=== PATIENT | female | born 1950 | race Caucasian/White ===

== ENCOUNTER → 2024-05-29 | Outpatient (CLI) | payer OTHER, MEDICAID, SELFPAY ==
--- NOTE | 2024-05-29 15:31 | XR_ITS ---
Examination: PA lateral chest 2 views TECHNIQUE: Upright PA lateral chest 2 views Exam date and time: May 29, 2024 1541 hours INDICATIONS: Coughing beginning 3 months ago. FINDINGS: Mild prominence left ventricle Retrocardiac gastric hernia Right subclavian Port-A-Cath tip satisfactory position Mild vascular congestion Severe osteopenia Accentuation basilar bronchovascular markings IMPRESSION: Bronchitis pattern
== END | disposition home or self-care (01) ==
PROVIDERS: PCP Physician Assistant; Referring Provider Physician Assistant; Visit Provider Physician Assistant
DX: R05.9 Cough, unspecified (principal); J44.9 Chronic obstructive pulmonary disease, unspecified
CPT/HCPCS: 71046

== ENCOUNTER 2024-11-21 17:01 | Inpatient (IN) | payer OTHER, MEDICAID, SELFPAY ==
[2024-11-21 17:16] VITALS: BP 153/89; PULSE 98; RESP 22; TEMP 36.6; O2SAT 94; BMI 23.6
--- NOTE | 2024-11-21 17:30 | EKG_ITS ---
[facility] (Formerly [facility]) Test Date: 2024-11-21 Pat Name: JADYN LEE Department: Room: - Gender: Female Huc Ob: : 1950 Requested By: Sunil Boston Order Number: [id number] Reading MD: Sunil Boston Measurements Intervals [place] Rate: 99 P: [place]: QRS: 23 QRSD: 110 T: -12 QT: 341 QTc: 439 Interpretive Statements ATRIAL FIBRILLATION NONSPECIFIC T-WAVE ABNORMALITY ABNORMAL RHYTHM ECG Compared to ECG 01/09/2024 16:57:31 T-wave abnormality now present ST (T wave) deviation no longer present /store/S0/[id number]/[id number].pdf
--- NOTE | 2024-11-21 17:30 | XR_ITS ---
Examination: PA lateral chest 2 views FINDINGS: Upright PA lateral chest 2 views Date and time: November 21, 2024, 1558 hours, comparison May 29, 2024 INDICATIONS: Chest pain shortness of breath beginning last night, diagnosis breast cancer FINDINGS: Interval extensive volume loss and opacity in the left hemithorax Prominent vascular congestion, suspicious for edema at the right lung base Right subclavian Port-A-Cath tip satisfactory position Mildly enlarged cardiac contour Elevation left hemidiaphragm Abrupt truncation of the left mainstem bronchus IMPRESSION: Interval atelectasis and pneumonia left lung, consider CT chest post intravenous contrast follow-up to exclude left mediastinal tumor compressing the left main stem bronchus Mild heart failure
--- NOTE | 2024-11-21 17:30 | XR_ITS ---
Examination: CT brain head without contrast. 2-D sagittal coronal reconstructions Date and time of exam:November 21, 2024 1750 hours INDICATIONS: Onset slurred speech beginning yesterday CTDI: vol (mGy):46.5 DLP: (mGycm):985 Technique: Multiple CT axial sections of the brain have been obtained, 5 mm slice thickness. Contrast has not been administered. 2-D sagittal, coronal reconstructions have been obtained Low dose protocols were performed. One or more of the following dose reduction techniques were used; automated exposure control, adjustment of the mA and/or KV according to patient size, use of iterative reconstruction technique. Findings: No significant ventricular enlargement. Intra-axial or extra-axial hemorrhage density is not seen. No mass effect or midline shift Basal cisterns are not remarkable. Fourth ventricle is midline. Cranial vault intact. Impression: Negative for acute hemorrhage, mass effect or midline shift As clinically warranted, consider brain MRI MRA without contrast, stroke protocol, follow-up
--- NOTE | 2024-11-21 17:31 | PD.EDRME ---
Rapid Medical Screening Exam RME Arrival date/time: 11/21/24 17:01 74-year-old female with a history of hypertension presents to the emergency room with a chief complaint of slurred speech, right-sided unilateral numbness, shortness of breath, x 2 days. Patient states her last well-known was yesterday afternoon. I have greeted and performed a focused initial assessment of this patient. A comprehensive ED assessment and evaluation of the patient, analysis of all test results, and completion of the medical decision making process will be conducted by additional ED providers. Chief Complaint: Shortness of Breath/Dyspnea Time Seen by Provider: 11/21/24 17:11 Vital signs: Vital Signs Temperature 98 F 11/21/24 17:16 Pulse Rate 98 11/21/24 17:16 Respiratory Rate 22 H 11/21/24 17:16 Blood Pressure 153/89 H 11/21/24 17:16 Pulse Oximetry (%) 94 L 11/21/24 17:16 Oxygen Delivery Method Room Air 11/21/24 17:16 Vital signs reviewed by provider: Yes
[2024-11-21 17:54] LABS: Basophils # (Auto) 0.1 Thou/mm3 (0.0-0.2); Basophils % (Auto) 1 % (0-2.5); Eosinophils # (Auto) 0.1 Thou/mm3 (0.0-0.5); Eosinophils % (Auto) 2 % (0-10); Hematocrit 43.4 % (36.0-46.0); Hemoglobin 13.8 g/dL (12.0-16.0); Immature Granulocytes Auto 0.02 Thou/mm3 (0.00-0.00); Lymphocytes # (Auto) 1.7 Thou/mm3 (1.0-4.8); Lymphocytes % (Auto) 22 % (10-50); Mean Corpuscular HGB Conc 31.8 g/dl (31.0-37.0); Mean Corpuscular Hemoglobin 27.2 pg (25.0-35.0); Mean Corpuscular Volume 85 fL (80-100); Monocytes # (Auto) 0.6 Thou/mm3 (0.0-0.8); Monocytes % (Auto) 8 % (0-12); Neutrophils # (Auto) 5.1 Thou/mm3 (1.8-7.7); Neutrophils % (Auto) 67 % (37-80); Nucleated Red Blood Cell # 0.00 Thou/mm3 (0.00-0.00); Nucleated Red Blood Cell % 0 /100 WBC (0); Platelet Count 285 Thou/mm3 (140-440); RDW Standard Deviation 49.0 fL (36.4-46.3); Red Blood Count 5.08 Miln/mm3 (4.00-5.20); White Blood Count 7.6 Thou/mm3 (3.6-11.0)
[2024-11-21 18:12] LABS: INR 1.1 (0.9-1.3); Partial Thromboplastin Time 31.4 Seconds (22.0-36.0); Prothrombin Time 12.4 Seconds (9.0-12.2)
[2024-11-21 18:23] LABS: Alanine Aminotransferase 11 U/L (10-49); Albumin, Serum 3.9 gm/dL (3.4-4.8); Albumin/Globulin Ratio 1.1 (1.2-2.2); Alkaline Phosphatase 98 U/L (46-116); Anion Gap 6 (7-16); Aspartate Amino Transferase 24 U/L (0-34); B-Type Natriuretic Peptide 504 pg/mL (0-100); BUN/Creatinine Ratio 10 Ratio (12-20); Bilirubin,Total 0.6 mg/dL (0.3-1.2); Blood Urea Nitrogen 6 mg/dL (9-23); Calcium 8.9 mg/dL (8.3-10.6); Calcium (Corrected) 9.0 mg/dL (8.5-10.1); Carbon Dioxide 30.6 mMol/L (20.0-31.0); Chloride 102 mMol/L (98-107); Creatinine (Component) 0.6 mg/dL (0.6-1.3); Estimated Creatinine Clearance 78.8 mL/min (>60); Globulin 3.4 gm/dL (2.3-3.5); Glucose 107 mg/dL (74-106); Osmolality,Calculated 275 (275-295); Potassium 4.1 mMol/L (3.4-5.1); Sodium 139 mMol/L (136-145); Total Protein 7.3 gm/dL (5.7-8.2); Troponin I < 0.020 ng/mL (0.0-0.045); eGFR > 60 See Note
[2024-11-21 19:15] LABS: Collection Type, Urine Clean Catch
[2024-11-21 19:22] LABS: Bilirubin,Urine Negative (Negative); Blood,Urine 1+ (Negative); Clarity,Urine Clear (Clear/Hazy); Color,Urine Lt-Yellow (Lt Yel-Yel); Glucose, Urine Negative (Negative); Ketones,Urine Negative (Negative); Leukocyte Esterase,Urine Positive (Negative); Nitrite,Urine Negative (Negative); PH,Urine 7.0 (5.0-7.0); Protein,Urine Negative (Neg - Trace); RBC,Urine 4 /hpf (0-3); Specific Gravity,Urine 1.005 (1.001-1.035); Squamous Epithelial Cell,Urine 3 /hpf (0-5); Urobilinogen,Urine Negative mg/dL (0.0-1.0); WBC,Urine 1 /hpf (0-5)
[2024-11-21 20:24] VITALS: BP 146/89; PULSE 104; RESP 19; TEMP 36.8; O2SAT 95
--- NOTE | 2024-11-21 21:03 | EDNOTE_ITS ---
ED SOB =RME/HPI General Chief Complaint: Shortness of Breath/Dyspnea Stated Complaint: SOB since last night, memory loss today Time Seen by Provider: 11/21/24 17:11 Arrival date/time: 11/21/24 17:01 RME / HPI RME / HPI Narrative: 11/21/24 17:01 74-year-old female with a history of hypertension presents to the emergency room with a chief complaint of slurred speech, right-sided unilateral numbness, shortness of breath, x 2 days. Patient states her last well-known was yesterday afternoon. I have greeted and performed a focused initial assessment of this patient. A comprehensive ED assessment and evaluation of the patient, analysis of all test results, and completion of the medical decision making process will be conducted by additional ED providers. Dr. Price?s Main ED Evaluation: 74yo female presents with ongoing dyspnea on exertion/shortness of breath and central chest tightness for the last 24 hours that is waxing and weaning. Also notes expressive aphasia last PM and ?right-sided weakness. Reports diaphoresis. Denies N/V. PE risk factors positive for tobacco use and family history of DVT. No recent surgeries. No HRT. PMH includes breast CA, COPD, aFib. No prior MCA or OK. Surgical history includes hysterectomy and left mastectomy. Related Data Home Medications ?Medication ?Instructions ?Recorded ?Confirmed lisinopril 10 mg tablet 10 mg PO QDAY #0 tabs 11/22/24 Held on 01/13/24. Instructions: Resume on 01/20/24. Hold due to low BPs. Reassess with PCP. Methadone * 5 mg PO Q6HR #0 tabs 7 11/22/24 duloxetine 30 mg capsule,delayed 30 mg PO DAILY #0 cap s 02/08/17 11/22/24 release (Cymbalta) esomeprazole magnesium 20 mg 20 mg PO DAILY 01/10/24 0 11/22/24 capsule,delayed release fluticasone 250 mcg-salmeterol 50 1 inh inhalation BID 01/10/24 11/22/24 mcg/dose blistr powdr for inhalation furosemide 20 mg tablet 20 mg PO DAILY 01/10/2401/08 Held on 01/13/24. Instructions: Resume on 01/20/24. Hold due to low BP, reassess with [employer] Previous Rx's ?Medication ?Instructions ?Recorded amiodarone 200 mg tablet 200 mg PO BID #30 tabs 01/12 apixaban 5 mg tablet 5 mg PO BID #30 tabs 4 Allergies Allergy/AdvReac Type Severity Reaction Status Date / Time adhesive tape Allergy Severe BLISTER/RED Verified 11/21/24 17:08 NESS Penicillins Allergy Severe RASH / Verified 11/21/24 17:08 ITICHING/ Iodinated Contrast Media Allergy Intermediate Shakiness Verified 11/21/24 17:08 latex Allergy Mild Rash Verified 11/21/24 17:08 Review of Systems Review of Systems Systems Reviewed: All systems reviewed, normal except as documented Past Medical History Past Medical History NEUROLOGIC: Positive Migraine; Negative Cerebrovascular Accident CARDIAC: Positive Peripheral Vascular Disease and Hypertension; Negative Cardiac Disorders, Hypercholesterolemia or Congestive Heart Failure RESPIRATORY: Positive Chronic Obstructive Pulmonary Disease (COPD) (ex smoker), Asthma and Bronchitis GASTROINTESTINAL: Positive Gastroesophageal Reflux Disease GENITOURINARY: Negative Renal Disease REPRODUCTIVE: Positive Breast Cancer (left partial masectomy) and Previous Pregnancies MUSCULOSKELETAL: Positive Arthritis ENDOCRINE: Negative Diabetes Mellitus Type 1 or Diabetes Mellitus Type 2 HEMATOLOGIC: Positive Blood Disorders and Anemia; Negative Sickle Cell Disease PSYCHO/SOCIAL: Positive Depression and Anxiety OTHER HISTORY: Positive Hospitalization, Chicken Pox, Measles, Mumps, Cancer and Breast Cancer (left partial masectomy) Family History FAMILY HISTORY: Positive Family Psychiatric Problems, Family Respiratory Disorders, Family Gastrointestinal Problems and Family Cancer Surgical History SURGICAL: Positive Angiogram, Mastectomy, Hysterectomy and Tubal Ligation Social History SMOKING STATUS: Current every day smoker ED Exam Narrative Physical exam: GENERAL APPEARANCE: alert and oriented x 4, chronically ill appearing, nontoxic, complains of shortness of breath, no acute distress VITALS: All vitals were reviewed and the pulse ox is 95% on room air, which is normal according to my interpretation. HEENT: Normocephalic, atraumatic; pupils equal, round, reactive to light; EOMI; mucous membranes pink, moist; oropharynx clear NECK: Supple, left carotid bruit, no JVD LUNGS: Scattered wheezing, diminished breath sounds HEART: Regular rate, regular rhythm; normal S1, S2; no murmurs ABDOMEN: non distended; normal BS; soft, no tenderness, no guarding, no rebound; no masses, no organomegaly, no hernia BACK: no CVA tenderness EXTREMITIES: atraumatic; no edema NEUROLOGIC: awake; alert and oriented x4; cranial nerves II-XII grossly intact; ?slight weakness to the RUE, normal F-N and H-S; gait not observed PSYCHIATRIC: appropriate mood and affect SKIN: warm, dry, normal color; no rashes Course Course Course Narrative: CXR is ordered for determining the etiology of shortness of breath. Quality Measures none Orders Category Date Time Status Bedside COVID-19 Antigen Test NOW Care 11/22/24 12:[address] Screening NOW Care 11/21/24 21:[address] Screening NOW Care 11/21/24 21:26 Active EKG (ED ONLY) *Do not use* NOW Care 11/21/24 17:30 Completed MRI Screening NOW Care 11/22/24 03:[address] angio carotid w head w Stat Exams 11/21/24 21:[address] chest w con Stat Exams 11/21/24 21:[address] head/brain wo con Stat Exams 11/21/24 17:30 Completed EKG (ED Only) Stat Exams 11/21/24 17:30 Draft MR MRCP Stat Exams 11/22/24 Completed XR chest 2V Stat Exams 11/21/24 17:30 Completed B-Type Natriuretic Peptide Stat Lab 11/21/24 17:44 Completed CBC Stat Lab 11/21/24 17:44 Completed CBC Stat Lab 11/22/24 12:17 Completed CMP [Comprehensive Metabolic Panel] Stat Lab 11/22/24 12:17 Completed Comprehensive Metabolic Panel Stat Lab 11/21/24 17:44 Completed Magnesium Stat Lab 11/22/24 12:17 Completed Partial Thromboplastin Time Stat Lab 11/21/24 17:44 Completed Prothrombin Time with INR Stat Lab 11/21/24 17:44 Completed Troponin I Stat Lab 11/21/24 17:44 Completed Urinalysis Stat Lab 11/21/24 18:53 Completed ALBUTEROL RT 3ml [Proventil Rt 3ml] Med 11/22/24 02:29 Discontinued 2.5 mg INH X1 ONE Acetaminophen Ivpb [Ofirmev Inj] Med 11/22/24 11:58 Discontinued 1,000 mg in 100 ml IV X1 Albuterol/Ipratr Rt Eladia [Duoneb Rt Eladia] Med 11/21/24 21:22 Discontinued 3 ml INH X1 ONE Albuterol/Ipratr Rt Eldaia [Duoneb Rt Eladia] Med 11/22/24 02:30 Discontinued 3 ml INH X1 ONE Diazepam Inj [Valium Inj] Med 11/22/24 08:04 Discontinued 2.5 mg IVP X1 ONE DiphenhydrAMINE INJ [Benadryl Inj] Med 11/21/24 21:45 Discontinued 50 mg IVP X1 ONE Doxycycline Inj [Vibramycin Inj] 100 mg Med 11/22/24 03:54 Discontinued Sodium Chloride 0.9% (Pop) [NS 0.9% mini bag] 100 ml IV X1 Furosemide [Lasix Inj] Med 11/21/24 21:21 Discontinued 20 mg IVP X1 ONE MethylPREDNISolone. [SoluMEDROL Inj] Med 11/21/24 21:45 Discontinued 125 mg IVP X1 ONE MethylPREDNISolone.* [SoluMEDROL Inj] Med 11/21/24 21:57 Discontinued 125 mg IVP X1 ONE cefTRIAXone/D5w 1gm IV premix [Rocephin/D5w 1gm IV Med 11/22/24 03:53 Discontinued premix] 1 gm in 50 ml IV X1 fentaNYL INJ [Sublimaze Inj] Med 11/22/24 09:28 Discontinued 50 mcg IVP X1 ONE Vital Signs Vital signs: Vital Signs Temperature 98 F 11/21/24 17:16 Pulse Rate 98 11/21/24 17:16 Respiratory Rate 22 H 11/21/24 17:16 Blood Pressure 153/89 H 11/21/24 17:16 Pulse Oximetry (%) 94 L 11/21/24 17:16 Oxygen Delivery Method Room Air 11/21/24 17:16 Shortness of Breath / Dyspnea MDM Narrative MDM Narrative:: Scribe Attestation: 11/21/24 - Kaylyn Arthur am scribing for and in the presence of Dr. Price. 74yo female presents with ongoing dyspnea on exertion/shortness of breath and central chest tightness for the last 24 hours that is waxing and waning. Also notes expressive aphasia last PM and ?right-sided weakness. Please see PE findings. Lab markers demonstrate WBC 7.6, normal Hgb, and normal platelet count. Chemistries essentially unremarkable. BNP mildly elevated at 504 and troponin undetected. UA with equivocal evidence of infection. Patient placed on school lunch monitor, and was administered nebulizer treatments, steroids, analges ics, and antiemetics with mild relief. CXR showed possible mediastinal mass prompting CTA chest, which demonstrated left lobar pneumonia and possible endobronchial lesion. There's additionally intrahepatic dilatation, further imaging suggested. CTA head and neck are unremarkable for LVO. MRCP will be required to determine whether the patient will necessitate tranfer. Empiric antibiotics initiated. Dx: pneumonia, CHF, r/o endobronchial lesion. Disposition per AM physician, patient awaiting MRCP. Patient data External records reviewed:: [facility] previous records (Per chart review, patient was admitted here on 01/09/24 for aFib RVR.) Clinical information provided by:: patient Social determinants that could affect healthcare access:: none Patient has the following chronic illnesses:: COPD, HTN, PAD, CAD s/p two stents on Eliquis How is presenting disease/condition affected by chronic disease/condition?: exacerbated by Evaluation data The following diagnostics were reviewed and interpreted by me:: lab results, radiology exam(s) and EKG tracing(s) Lab and/or radiology exams considered but not ordered:: none Interpretation Summary: EKG done at 1736, aFib, rate of 99, no ST segment changes, no ectopy, normal axis, according to my interpretation. [facility] Report Signed Patient: JADYN LEE. Record#: [id number] Birthdate: 1950 Age/Sex: 74 / F Location: [facility] Attending Dr: Ordering Physician: Sunil Epperson Date of Service: 11/21/24 Procedure(s): XR chest 2V Accession Number(s): [id number] cc: Sunil Epperson; Jaison Montes MD~ Examination: PA lateral chest 2 views FINDINGS: Upright PA lateral chest 2 views Date and time: November 21, 2024, 1558 hours, comparison May 29, 2024 INDICATIONS: Chest pain shortness of breath beginning last night, diagnosis breast cancer FINDINGS: Interval extensive volume loss and opacity in the left hemithorax Prominent vascular congestion, suspicious for edema at the right lung base Right subclavian Port-A-Cath tip satisfactory position Mildly enlarged cardiac contour Elevation left hemidiaphragm Abrupt truncation of the left mainstem bronchus IMPRESSION: Interval atelectasis and pneumonia left lung, consider CT chest post intravenous contrast follow-up to exclude left mediastinal tumor compressing the left main stem bronchus Mild heart failure Dictated By: Jaison Montes MD Signed By: <Electronically signed by Jaison Montes MD in OV> 11/21/24 1814 [facility] Signed Patient: JADYN LEE [facility]. Record#: [id number] Birthdate: 1950 Age/Sex: 74 / F Location: [facility] Attending Dr: Ordering Physician: Sunil Epperson Date of Service: 11/21/24 Procedure(s): CT head/brain wo con Accession Number(s): [id number] cc: Sunil Epperson; Jaison Montes MD~ Examination: CT brain head without contrast. 2-D sagittal coronal reconstructions Date and time of exam:November 21, 2024 1750 hours INDICATIONS: Onset slurred speech beginning yesterday CTDI: vol (mGy):46.5 DLP: (mGycm):985 Technique: Multiple CT axial sections of the brain have been obtained, 5 mm slice thickness. Contrast has not been administered. 2-D sagittal, coronal reconstructions have been obtained Low dose protocols were performed. One or more of the following dose reduction techniques were used; automated exposure control, adjustment of the mA and/or KV according to patient size, use of iterative reconstruction technique. Findings: No significant ventricular enlargement. Intra-axial or extra-axial hemorrhage density is not seen. No mass effect or midline shift Basal cisterns are not remarkable. Fourth ventricle is midline. Cranial vault intact. Impression: Negative for acute hemorrhage, mass effect or midline shift As clinically warranted, consider brain MRI MRA without contrast, stroke protocol, follow-up Dictated By: Jaison Montes MD Signed By: <Electronically signed by Jaison Montes MD in OV> 11/21/24 1801 [facility] Signed Patient: JADYN LEE [facility]. Record#: [id number] Birthdate: 1950 Age/Sex: 74 / F Location: [facility] Attending Dr: Ordering Physician: Santosh Lyons DO Date of Service: 11/21/24 Procedure(s): CT angio carotid w head w Accession Number(s): [id number] cc: Santosh Lyons DO; Jaison Montes MD; SHAI REINOSO~ Examination: CTA carotids with intravenous contrast CTA brain, head with intravenous contrast. 2-D sagittal, coronal reconstructions. 3-D reconstructions. Exam date and time: November 21, 2024 10:29 PM CTDI: vol (mGy) 28.55 DLP: (mGycm) 579 Technique: Multiple CTA axial brain, head carotid images post intravenous contrast injection 75 cc, Isovue-370. 2-D sagittal, coronal reconstructions. 3-D reconstructions, 3-D post processing including vascular maximum intensity projection images. Low dose protocols were performed. One or more of the following dose reduction techniques were used; automated exposure control, adjustment of the mA and/or KV according to patient size, use of iterative reconstruction technique. Findings: Extensive opacity volume loss and pneumonia in the left lung 14 mm left thyroid nodule No significant common carotid carotid bifurcation or internal carotid artery stenoses Dominant right vertebral artery with no critical stenoses No cerebral large vessel arterial occlusions or thrombus IMPRESSION: No significant neck arterial stenoses No cerebral atherosclerotic tube occlusions or thromboses Dictated By: Jaison Montes MD Signed By: <Electronically signed by Jaison Montes MD in OV> 11/21/24 2353 [facility] Signed Patient: JADYN LEE Med. Record#: [id number] Birthdate: 1950 Age/Sex: 74 / F Location: [facility] Attending Dr: Ordering Physician: Santosh Lyons DO Date of Service: 11/21/24 Procedure(s): CT chest w con Accession Number(s): [id number] cc: Santosh Lyons DO; Jaison Montes MD; SHAI REINOSO~ Examination: CT chest with intravenous contrast 2-D sagittal and coronal reconstructions Exam date and time: November 21, 2024 1035 hours INDICATIONS: Difficulty breathing this week CTDI:vol (mGy) 16.71. DLP: (mGycm) 763. Technique: Multiple axial sections of the thorax have been obtained. Sections have been obtained, 3 mm slice thickness. Mediastinal and lung density settings have been obtained. Intravenous contrast administered, 75 cc Isovue-370. 2-D sagittal, coronal images obtained. Low dose protocols were performed. One or more of the following dose reduction techniques were used; automated exposure control, adjustment of the mA and/or KV according to patient size, use of iterative reconstruction technique. Findings: Extensive volume loss with pneumonia in the left lung No thoracic aortic aneurysmal dilatation No pulmonary artery emboli. Abrupt termination of the left mainstem bronchus image 173 No right lung pneumonia COPD evident with areas of airspace destruction and 8 mm pulmonary nodule right upper lobe Intra and extrahepatic biliary tract dilatation, common bile duct 10 mm Prominent osteopenia IMPRESSION: Extensive pneumonia and volume loss left lung. Abrupt termination of the left mainstem bronchus, recommend bronchoscopy to exclude endobronchial lesion COPD 8 mm pulmonary nodule right upper lobe Significant extrahepatic biliary tract dilatation, recommend hepatobiliary sonography follow-up Dictated By: Jaison Montes MD Signed By: <Electronically signed by Jaison Montes MD in OV> 11/21/24 2356 Medications / Prescriptions Medications or Prescriptions considered but not ordered:: none Medication administrations:: Medication Administration History Acetaminophen (Acetaminophen 325 Mg Tablet) 650 mg PO Q6H PRN PRN Reason: Pain (1-3) & Fever >100.4 Stop: 12/22/24 14:13 Albuterol/Ipratropium (Albuterol/Ipratropium (Duoneb) Rt Eladia 3 Ml Nebu) 3 ml INH Q4HRRT AMANDO Stop: 12/22/24 14:59 Last Admin: 11/22/24 22:23 Dose: 3 ml Documented By: Admin: 11/22/24 18:56 Dose: 3 ml Documented By: Admin: 11/22/24 14:37 Dose: 3 ml Documented By: MARY Albuterol/Ipratropium (Albuterol/Ipratropium (Duoneb) Rt Eladia 3 Ml Nebu) 3 ml INH Q2HR PRN PRN Reason: SHORTNESS OF BREATH OR WHEEZE Stop: 12/22/24 14:13 Amiodarone HCl (Amiodarone Hcl 200 Mg Tablet) 200 mg PO QDAY [facility] Stop: 12/22/24 14:29 Last Admin: 11/22/24 14:55 Dose: 200 mg Documented By: GAVINO Apixaban (Apixaban 2.5 Mg Tablet) 5 mg PO BID [facility] Stop: 12/22/24 14:59 Last Admin: 11/22/24 15:01 Dose: 5 mg Documented By: GAVINO Atorvastatin Calcium (Atorvastatin Calcium 20 Mg Tablet) 80 mg PO HS AMANDO Stop: 12/22/24 20:59 Last Admin: 11/22/24 20:28 Dose: 80 mg Documented By: RACHEL Furosemide (Furosemide Inj 10 Mg/Ml 4ml Vial) 40 mg IVP QDAY [facility] Stop: 12/23/24 08:59 Ceftriaxone Sodium/Dextrose (Rocephin/D5w 1gm Iv Premix) 1 gm in 50 mls @ 100 mls/hr IV QDAY [facility] Stop: 11/30/24 08:59 Azithromycin 500 mg/ Sodium (Chloride) 250 mls @ 250 mls/hr IV QDAY [facility] Stop: 11/30/24 08:59 Methylprednisolone Sodium Succinate (Methylprednisolone Sod Succ 40 Mg Vial) 40 mg IVP QDAY [facility] Stop: 11/29/24 14:29 Last Admin: 11/22/24 14:55 Dose: 40 mg Documented By: GAVINO Ondansetron HCl (Ondansetron Inj 2 Mg/Ml Inj 2 Ml) 4 mg IVP Q6H PRN; Protocol PRN Reason: NAUSEA OR VOMITING Stop: 12/22/24 14:13 Pantoprazole Sodium (Pantoprazole Inj 40 Mg Vial) 40 mg IVP QDAY [facility] Stop: 12/23/24 08:59 Sennosides (Senna Tablet) 1 tab PO QDAY AMAND[facility]; Protocol Stop: 12/23/24 08:59 Tramadol HCl (Tramadol Hcl 50 Mg Tablet) 50 mg PO Q8HR PRN PRN Reason: PAIN SCALE 4-10(Mod-Sev Stop: 11/27/24 14:13 Last Admin: 11/22/24 20:37 Dose: 50 mg Documented By: RACHEL Discontinued Medications Albuterol (Albuterol Rt 2.5 Mg/3 Ml Nebu) 2.5 mg INH X1 ONE Stop: 11/22/24 02:30 Last Admin: 11/22/24 03:11 Dose: Not Given Documented By: XOCHITL Non-Admin Reason: Discontinued Albuterol/Ipratropium (Albuterol/Ipratropium (Duoneb) Rt Eladia 3 Ml Nebu) 3 ml INH X1 ONE Stop: 11/21/24 21:23 Last Admin: 11/21/24 21:49 Dose: 3 ml Documented By: KAITLYNN Albuterol/Ipratropium (Albuterol/Ipratropium (Duoneb) Rt Eladia 3 Ml Nebu) 3 ml INH X1 ONE Stop: 11/22/24 02:31 Last Admin: 11/22/24 02:46 Dose: 3 ml Documented By: KAITLYNN Diazepam (Diazepam Inj 5 Mg/Ml Vial 2 Ml) 2.5 mg IVP X1 ONE Stop: 11/22/24 08:05 Last Admin: 11/22/24 08:43 Dose: 2.5 mg Documented By: GAVINO Diphenhydramine HCl (Diphenhydramine Inj 50 Mg/Ml Vial) 50 mg IVP X1 ONE Stop: 11/21/24 21:46 Last Admin: 11/21/24 22:05 Dose: 50 mg Documented By: SUSANNE Fentanyl Citrate (Fentanyl Cit Inj 50 Mcg/Ml Amp 2ml) 50 mcg IVP X1 ONE Stop: 11/22/24 09:29 Last Admin: 11/22/24 10:24 Dose: 50 mcg Documented By: GAVINO Furosemide (Furosemide Inj 10 Mg/Ml Vial 2 Ml) 20 mg IVP X1 ONE Stop: 11/21/24 21:22 Last Admin: 11/21/24 21:31 Dose: 20 mg Documented By: SUSANNE Furosemide (Furosemide Inj 10 Mg/Ml 4ml Vial) 40 mg IVP X1 ONE Stop: 11/22/24 14:27 Last Admin: 11/22/24 14:55 Dose: 40 mg Documented By: GAVINO Ceftriaxone Sodium/Dextrose (Rocephin/D5w 1gm Iv Premix) 1 gm in 50 mls @ 100 mls/hr IV X1 ONE Stop: 11/22/24 04:22 Last Infusion: 11/22/24 04:53 Dose: Infused Documented By: Admin: 11/22/24 04:23 Dose: 100 mls/hr Documented By: SUSANNE Doxycycline Hyclate 100 mg/ (Sodium Chloride) 100 mls @ 100 mls/hr IV X1 ONE Stop: 11/22/24 04:53 Last Infusion: 11/22/24 06:26 Dose: Infused Documented By: Admin: 11/22/24 04:25 Dose: 100 mls/hr Documented By: SUSANNE Acetaminophen (Ofirmev Inj) 1,000 mg in 100 mls @ 250 mls/hr IV X1 ONE Stop: 11/22/24 12:21 Last Infusion: 11/22/24 12:40 Dose: Infused Documented By: Admin: 11/22/24 12:14 Dose: 250 mls/hr Documented By: GAVINO Magnesium Sulfate (Magnesium Sulfate Ivpb) 4 gm in 50 mls @ 12.5 mls/hr IV X1 ONE Stop: 11/22/24 18:25 Last Infusion: 11/22/24 19:50 Dose: Infused Documented By: Admin: 11/22/24 14:49 Dose: 12.5 mls/hr Documented By: GAVINO Azithromycin 500 mg/ Sodium (Chloride) 250 mls @ 250 mls/hr IV X1 ONE Stop: 11/22/24 15:29 Last Infusion: 11/22/24 15:55 Dose: Infused Documented By: Admin: 11/22/24 14:44 Dose: 250 mls/hr Documented By: GAVINO Methylprednisolone Sodium Succinate (Methylprednisolone Sod Succ 40 Mg Vial) 125 mg IVP X1 ONE Stop: 11/21/24 21:46 Last Admin: 11/21/24 22:06 Dose: Not Given Documented By: SUSANNE Non-Admin Reason: Duplicate Medication on eMAR Methylprednisolone Sodium Succinate (Methylprednisolone Sod Succ 62.5 Mg/Ml 2ml Vial) 125 mg IVP X1 ONE Stop: 11/21/24 21:58 Last Admin: 11/21/24 22:05 Dose: 125 mg Documented By: SUSANNE Morphine Sulfate (Morphine Sulf Inj 10 Mg/Ml Vial) 2 mg IVP X1 PRN PRN Reason: Prior to MRI Stop: 11/27/24 15:42 Last Admin: 11/22/24 16:25 Dose: 2 mg Documented By: RD Potassium Chloride (Potassium Chloride 20 Meq Tabcr) 20 meq PO X1 ONE Stop: 11/22/24 14:26 Last Admin: 11/22/24 14:55 Dose: 20 meq Documented By: VG Sodium Chloride (Sodium Chloride Rt 10% 15 Ml Nebu) 5 ml INH X1 ONE Stop: 11/22/24 14:25 see above Consultations Consultation(s) initiated? (list below): No Diagnosis Shortness of Breath Differential Diagnosis: acute exacerbation of chronic obstructive airways disease, congestive heart failure, community acquired pneumonia and pulmonary embolism Most likely diagnosis given after review of the tests above:: final dx pending at sign out Admission Indicated Admission indicated?: not indicated Admission Request Was there a request for admission?: No Disposition Plan Disposition Plan: other (specify) ([facility] Lloyd [facility] 6 [facility] Discharge Plan Plan Patient Disposition: Admit Acute Care w/in Hospital Problem List Clinical Impression: Pneumonia, CHF (congestive heart failure)
--- NOTE | 2024-11-21 21:22 | XR_ITS ---
Examination: CTA carotids with intravenous contrast CTA brain, head with intravenous contrast. 2-D sagittal, coronal reconstructions. 3-D reconstructions. Exam date and time: November 21, 2024 10:29 PM CTDI: vol (mGy) 28.55 DLP: (mGycm) 579 Technique: Multiple CTA axial brain, head carotid images post intravenous contrast injection 75 cc, Isovue-370. 2-D sagittal, coronal reconstructions. 3-D reconstructions, 3-D post processing including vascular maximum intensity projection images. Low dose protocols were performed. One or more of the following dose reduction techniques were used; automated exposure control, adjustment of the mA and/or KV according to patient size, use of iterative reconstruction technique. Findings: Extensive opacity volume loss and pneumonia in the left lung 14 mm left thyroid nodule No significant common carotid carotid bifurcation or internal carotid artery stenoses Dominant right vertebral artery with no critical stenoses No cerebral large vessel arterial occlusions or thrombus IMPRESSION: No significant neck arterial stenoses No cerebral atherosclerotic tube occlusions or thromboses
--- NOTE | 2024-11-21 21:26 | XR_ITS ---
Examination: CT chest with intravenous contrast 2-D sagittal and coronal reconstructions Exam date and time: November 21, 2024 1035 hours INDICATIONS: Difficulty breathing this week CTDI:vol (mGy) 16.71. DLP: (mGycm) 763. Technique: Multiple axial sections of the thorax have been obtained. Sections have been obtained, 3 mm slice thickness. Mediastinal and lung density settings have been obtained. Intravenous contrast administered, 75 cc Isovue-370. 2-D sagittal, coronal images obtained. Low dose protocols were performed. One or more of the following dose reduction techniques were used; automated exposure control, adjustment of the mA and/or KV according to patient size, use of iterative reconstruction technique. Findings: Extensive volume loss with pneumonia in the left lung No thoracic aortic aneurysmal dilatation No pulmonary artery emboli. Abrupt termination of the left mainstem bronchus image 173 No right lung pneumonia COPD evident with areas of airspace destruction and 8 mm pulmonary nodule right upper lobe Intra and extrahepatic biliary tract dilatation, common bile duct 10 mm Prominent osteopenia IMPRESSION: Extensive pneumonia and volume loss left lung. Abrupt termination of the left mainstem bronchus, recommend bronchoscopy to exclude endobronchial lesion COPD 8 mm pulmonary nodule right upper lobe Significant extrahepatic biliary tract dilatation, recommend hepatobiliary sonography follow-up
[2024-11-21 21:31] VITALS: BP 136/93; PULSE 86
[2024-11-21] MEDS: FUROSEMIDE INJ 10 MG/ML VIAL 2 ML 20 MG IVP (21:31)
--- NOTE | 2024-11-21 21:43 | PC.NURSE ---
Notified Dr. Perez of allergy to contrast, new orders pending for benadryl and decodron, and okay to go to Ct 20 minutes post medication administration
[2024-11-21] MEDS: ALBUTEROL/IPRATROPIUM (Duoneb) RT SOL 3 ML NEBU INH (21:49)
[2024-11-21 21:50] VITALS: PULSE 93; RESP 20; O2SAT 96
[2024-11-21] MEDS: MethylPREDNISolone SOD SUCC 62.5 MG/ML 2ML VIAL 125 MG IVP (22:05)
[2024-11-22] VITALS (14 sets, daily range): BP systolic 96–143; BP diastolic 70–96; PULSE 89–114; RESP 16–25; TEMP 36.5–37; O2SAT 93–100
--- NOTE | 2024-11-22 | XR_ITS ---
MRI abdomen, without contrast. MRCP Date and time of exam: November 22, 2024, 0854 hours INDICATIONS: CT chest November 21, 2024 extrahepatic biliary tract dilatation Technique: Multiple axial and coronal images of the abdomen have been obtained with the Siemens 1.5T MRI scanner. Patient's cooperation limited, coronal and axial images obtained Findings: Patient motion degrades image quality Intrahepatic biliary tract dilatation. Gallbladder not visualized Abnormal enlargement common hepatic duct 12 mm No pancreatic mass or dilated pancreatic duct No hydronephrosis. IMPRESSION: Severely limited study,. Significant intra and extrahepatic biliary tract dilatation Recommend repeating the study preceded by sedation Also recommend hepatobiliary sonography follow-up
--- NOTE | 2024-11-22 | XR_ITS ---
Examinations: MRI Brain without intravenous contrast. MRA brain without intravenous contrast. MRA carotids without intravenous contrast 3-D vascular reconstructions Date and time of exam: November 22, 2024, 1742 hours INDICATIONS: Right leg weakness paresthesias difficulty speaking 3 days Technique: Multiple axial and sagittal images of the brain have been obtained MRA brain carotid images without contrast obtained, including 3-D postprocessing, vascular maximum intensity projection images Findings: Sellaturcica is not enlarged. The optic chiasm and infundibular stalk are not remarkable. Prepontine and interpeduncular cisterns are not enlarged. No localized enlargement of the medulla or amanda. Fourth ventricle and cerebellar tonsils normal in position. Subacute hemorrhage is not seen. Fourth ventricle is midline. Mass in the cerebellopontine angle region is not evident. 7th and 8th nerve complexes exhibits symmetry. Globes are symmetrical with no retro-orbital mass. Increased white matter signal moderate Diffusion-weighted images demonstrate multiple embolic-type foci restricted diffusion left parietal lobe, left frontal lobe, left temporal lobe, left basal ganglia, left occipital lobe Mass-effect upon the ventricular system is not identified. MRA carotid images no significant carotid stenoses. 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
[2024-11-22] MEDS: ALBUTEROL/IPRATROPIUM (Duoneb) RT SOL 3 ML NEBU INH ×4 (02:46→22:23)
[2024-11-22] MEDS: cefTRIAXone/D5w 1gm IV premix 1 GM/50 ML BAG IV (04:23)
[2024-11-22] MEDS: DOXYCYCLINE INJ 100 MG in SODIUM CHLORIDE 0.9% (POP) 100 ML IV (04:25)
--- NOTE | 2024-11-22 04:35 | PC.NURSE ---
Clarified the blood culture order with Dr. Johnston prior to administering antibiotics
--- NOTE | 2024-11-22 07:03 | EDNOTE_ITS ---
Emergency Room Addendum Addendum Narrative: Patient signed out to elisabeth has extensive pneumonia on the CT scan with volume of lung loss and concern for a right pulmonary nodule that may need to have bronchoscopy at some point to get a formal diagnosis to rule out neoplasm but incidentally they found extensive dilated biliary tract and an MRCP is pending at 0650 hrs. Patient got antibiotics both ceftriaxone and doxycycline to cover the pneumonia got some breathing treatments for her COPD. Also got some jose roids. At 0650 hrs. patient is comfortable waiting for MRCP. Patient got her MRCP which was suboptimal and confirms the dilated biliary tree but but no obvious mass was seen Patient clearly has pneumonia there is a concerning mass in the lung suggesting postobstructive issue and possibly related to her cancer. Hospitalist was called and they will admit the patient.
--- NOTE | 2024-11-22 08:19 | EDNOTE_ITS ---
Emergency Room Addendum <Marisol Randhawa - Last Filed: 11/22/24 14:38> Addendum Narrative: 0600: Care assumed from Dr. Li, the previous shift emergency physician. Past medical, surgical, social and family history reviewed. Vitals and home medications reviewed. I will assume the care of the patient at this time, pending MRCP and final disposition. Please refer to the emergency department record for history and examination from initial visit.? Physical exam by me shows patient under no acute distress at this time. 1054: Discussed test HPI, PMHx, lab, radiology results and/or management with resident working with the hospitalist. Will admit for further evaluation and man agement. Accepts patient for admission. 1109: I called Dr. Marin twice. Discussed test HPI, PMHx, lab, radiology results and/or management and would like a neuro consult before admission. 1400: Discussed test HPI, PMHx, lab, radiology results and/or management with resident working with the hospitalist. Will admit for further evaluation and management. Accepts patient for admission. <Moshe Lloyd MD - Last Filed: 11/22/24 16:08> Addendum Narrative: 0600: Care assumed from Dr. Li, the previous shift emergency physician. Past medical, surgical, social and family history reviewed. Vitals and home medications reviewed. I will assume the care of the patient at this time, pending MRCP and final disposition. Please refer to the emergency department record for history and examination from initial visit.? Physical exam by me shows patient under no acute distress at this time. 1054: Discussed test HPI, PMHx, lab, radiology results and/or management with resident working with the hospitalist. Will admit for further evaluation and management. Accepts patient for admission. 1109: I called Dr. Marin twice. Discussed test HPI, PMHx, lab, radiology results and/or management and would like a neuro consult before admission. 1400: Discussed test HPI, PMHx, lab, radiology results and/or management with resident working with the hospitalist. Will admit for further evaluation and management. Accepts patient for admission. Also there was another addendum please refer to that to augment this plan Results <Marisol Randhawa - Last Filed: 11/22/24 14:38> Objective Laboratory: Laboratory Last Values WBC 7.6 Thou/mm3 (3.6-11.0) 11/21/24 17:44 RBC 5.08 Miln/mm3 (4.00-5.20) 11/21/24 17:44 Hgb 13.8 g/dL (12.0-16.0) 11/21/24 17:44 Hct 43.4 % (36.0-46.0) 11/21/24 17:44 MCV 85 fL (80-100) 11/21/24 17:44 MCH 27.2 pg (25.0-35.0) 11/21/24 17:44 MCHC 31.8 g/dl (31.0-37.0) 11/21/24 17:44 RDW Std Deviation 49.0 fL (36.4-46.3) H 11/21/24 17:44 Plt Count 285 Thou/mm3 (140-440) 11/21/24 17:44 Neut % (Auto) 67 % (37-80) 11/21/24 17:44 Lymph % (Auto) 22 % (10-50) 11/21/24 17:44 Barber % (Auto) 8 % (0-12) 11/21/24 17:44 Eos % (Auto) 2 % (0-10) 11/21/24 17:44 Baso % (Auto) 1 % (0-2.5) 11/21/24 17:44 Neut # (Auto) 5.1 Thou/mm3 (1.8-7.7) 11/21/24 17:44 Lymph # (Auto) 1.7 Thou/mm3 (1.0-4.8) 11/21/24 17:44 Barber # (Auto) 0.6 Thou/mm3 (0.0-0.8) 11/21/24 17:44 Eos # (Auto) 0.1 Thou/mm3 (0.0-0.5) 11/21/24 17:44 Baso # (Auto) 0.1 Thou/mm3 (0.0-0.2) 11/21/24 17:44 Immature Gran # (Auto) 0.02 Thou/mm3 (0.00-0.00) H 11/21/24 17:44 Absolute Nucleated RBC 0.00 Thou/mm3 (0.00-0.00) 11/21/24 17:44 Immature Gran % 0 % (0-0) 11/21/24 17:44 Nucleated RBC % 0 /100 WBC (0) 11/21/24 17:44 PT 12.4 Seconds (9.0-12.2) H 11/21/24 17:44 INR 1.1 (0.9-1.3) 11/21/24 17:44 APTT 31.4 Seconds (22.0-36.0) 11/21/24 17:44 Sodium 139 mMol/L (136-145) 11/21/24 17:44 Potassium 4.1 mMol/L (3.4-5.1) 11/21/24 17:44 Chloride 102 mMol/L (98-107) 11/21/24 17:44 Carbon Dioxide 30.6 mMol/L (20.0-31.0) 11/21/24 17:44 Anion Gap 6 (7-16) L 11/21/24 17:44 BUN 6 mg/dL (9-23) L 11/21/24 17:44 Creatinine 0.6 mg/dL (0.6-1.3) 11/21/24 17:44 Estim Creat Clear Calc 78.8 mL/min (>60) 11/21/24 17:44 eGFR > 60 See Note (60-) 11/21/24 17:44 BUN/Creatinine Ratio 10 Ratio (12-20) L 11/21/24 17:44 Glucose 107 mg/dL (74-106) H 11/21/24 17:44 Calculated Osmolality 275 (275-295) 11/21/24 17:44 Calcium 8.9 mg/dL (8.3-10.6) 11/21/24 17:44 Corrected Calcium 9.0 mg/dL (8.5-10.1) 11/21/24 17:44 Total Bilirubin 0.6 mg/dL (0.3-1.2) 11/21/24 17:44 AST 24 U/L (0-34) 11/21/24 17:44 ALT 11 U/L (10-49) 11/21/24 17:44 Alkaline Phosphatase 98 U/L (46-116) 11/21/24 17:44 Troponin I < 0.020 ng/mL (0.0-0.045) 11/21/24 17:44 B-Natriuretic Peptide 504 pg/mL (0-100) H* 11/21/24 17:44 Total Protein 7.3 gm/dL (5.7-8.2) 11/21/24 17:44 Albumin 3.9 gm/dL (3.4-4.8) 11/21/24 17:44 Globulin 3.4 gm/dL (2.3-3.5) 11/21/24 17:44 Albumin/Globulin Ratio 1.1 (1.2-2.2) L 11/21/24 17:44 Ur Collection Type Clean Catch 11/21/24 18:53 Urine Color Lt-Yellow (Lt Yel-Yel) 11/21/24 18:53 Urine Clarity Clear (Clear/Hazy) 11/21/24 18:53 Urine pH 7.0 (5.0-7.0) 11/21/24 18:53 Ur Specific [place] 1.005 (1.001-1.035) 11/21/24 18:53 Urine Protein Negative (Neg - Trace) 11/21/24 18:53 Urine Glucose (UA) Negative (Negative) 11/21/24 18:53 Urine Ketones Negative (Negative) 11/21/24 18:53 Urine Blood 1+ (Negative) A 11/21/24 18:53 Urine Nitrite Negative (Negative) 11/21/24 18:53 Urine Bilirubin Negative (Negative) 11/21/24 18:53 Urine Urobilinogen (Auto) Negative mg/dL (0.0-1.0) 11/21/24 18:53 Ur Leukocyte Esterase Positive (Negative) 11/21/24 18:53 Urine RBC 4 /hpf (0-3) H 11/21/24 18:53 Urine WBC 1 /hpf (0-5) 11/21/24 18:53 Ur Squamous Epith Cells 3 /hpf (0-5) 11/21/24 18:53 Urine Bacteria None (None) 11/21/24 18:53 Imaging: Procedure(s): MR MRCP Accession Number(s): [id number] cc: Santosh Lyons DO; Jaison Montes MD; SHAI RENIOSO~ MRI abdomen, without contrast. MRCP Date and time of exam: November 22, 2024, 0854 hours INDICATIONS: CT chest November 21, 2024 extrahepatic biliary tract dilatation Technique: Multiple axial and coronal images of the abdomen have been obtained with the Siemens 1.5T MRI scanner. Patient's cooperation limited, coronal and axial images obtained Findings: Patient motion degrades image quality Intrahepatic biliary tract dilatation. Gallbladder not visualized Abnormal enlargement common hepatic duct 12 mm No pancreatic mass or dilated pancreatic duct No hydronephrosis. IMPRESSION: Severely limited study,. Significant intra and extrahepatic biliary tract dilatation Recommend repeating the study preceded by sedation Also recommend hepatobiliary sonography follow-up Dictated By: Jaison Montes MD <Moshe Lloyd MD - Last Filed: 11/22/24 16:08> Objective Laboratory: Laboratory Last Values WBC 7.6 Thou/mm3 (3.6-11.0) 11/21/24 17:44 RBC 5.08 Miln/mm3 (4.00-5.20) 11/21/24 17:44 Hgb 13.8 g/dL (12.0-16.0) 11/21/24 17:44 Hct 43.4 % (36.0-46.0) 11/21/24 17:44 MCV 85 fL (80-100) 11/21/24 17:44 MCH 27.2 pg (25.0-35.0) 11/21/24 17:44 MCHC 31.8 g/dl (31.0-37.0) 11/21/24 17:44 RDW Std Deviation 49.0 fL (36.4-46.3) H 11/21/24 17:44 Plt Count 285 Thou/mm3 (140-440) 11/21/24 17:44 Neut % (Auto) 67 % (37-80) 11/21/24 17:44 Lymph % (Auto) 22 % (10-50) 11/21/24 17:44 Barber % (Auto) 8 % (0-12) 11/21/24 17:44 Eos % (Auto) 2 % (0-10) 11/21/24 17:44 Baso % (Auto) 1 % (0-2.5) 11/21/24 17:44 Neut # (Auto) 5.1 Thou/mm3 (1.8-7.7) 11/21/24 17:44 Lymph # (Auto) 1.7 Thou/mm3 (1.0-4.8) 11/21/24 17:44 Barber # (Auto) 0.6 Thou/mm3 (0.0-0.8) 11/21/24 17:44 Eos # (Auto) 0.1 Thou/mm3 (0.0-0.5) 11/21/24 17:44 Baso # (Auto) 0.1 Thou/mm3 (0.0-0.2) 11/21/24 17:44 Immature Gran # (Auto) 0.02 Thou/mm3 (0.00-0.00) H 11/21/24 17:44 Absolute Nucleated RBC 0.00 Thou/mm3 (0.00-0.00) 11/21/24 17:44 Immature Gran % 0 % (0-0) 11/21/24 17:44 Nucleated RBC % 0 /100 WBC (0) 11/21/24 17:44 PT 12.4 Seconds (9.0-12.2) H 11/21/24 17:44 INR 1.1 (0.9-1.3) 11/21/24 17:44 APTT 31.4 Seconds (22.0-36.0) 11/21/24 17:44 Sodium 139 mMol/L (136-145) 11/21/24 17:44 Potassium 4.1 mMol/L (3.4-5.1) 11/21/24 17:44 Chloride 102 mMol/L (98-107) 11/21/24 17:44 Carbon Dioxide 30.6 mMol/L (20.0-31.0) 11/21/24 17:44 Anion Gap 6 (7-16) L 11/21/24 17:44 BUN 6 mg/dL (9-23) L 11/21/24 17:44 Creatinine 0.6 mg/dL (0.6-1.3) 11/21/24 17:44 Estim Creat Clear Calc 78.8 mL/min (>60) 11/21/24 17:44 eGFR > 60 See Note (60-) 11/21/24 17:44 BUN/Creatinine Ratio 10 Ratio (12-20) L 11/21/24 17:44 Glucose 107 mg/dL (74-106) H 11/21/24 17:44 Calculated Osmolality 275 (275-295) 11/21/24 17:44 Calcium 8.9 mg/dL (8.3-10.6) 11/21/24 17:44 Corrected Calcium 9.0 mg/dL (8.5-10.1) 11/21/24 17:44 Total Bilirubin 0.6 mg/dL (0.3-1.2) 11/21/24 17:44 AST 24 U/L (0-34) 11/21/24 17:44 ALT 11 U/L (10-49) 11/21/24 17:44 Alkaline Phosphatase 98 U/L (46-116) 11/21/24 17:44 Troponin I < 0.020 ng/mL (0.0-0.045) 11/21/24 17:44 B-Natriuretic Peptide 504 pg/mL (0-100) H* 11/21/24 17:44 Total Protein 7.3 gm/dL (5.7-8.2) 11/21/24 17:44 Albumin 3.9 gm/dL (3.4-4.8) 11/21/24 17:44 Globulin 3.4 gm/dL (2.3-3.5) 11/21/24 17:44 Albumin/Globulin Ratio 1.1 (1.2-2.2) L 11/21/24 17:44 Ur Collection Type Clean Catch 11/21/24 18:53 Urine Color Lt-Yellow (Lt Yel-Yel) 11/21/24 18:53 Urine Clarity Clear (Clear/Hazy) 11/21/24 18:53 Urine pH 7.0 (5.0-7.0) 11/21/24 18:53 Ur Specific [place] 1.005 (1.001-1.035) 11/21/24 18:53 Urine Protein Negative (Neg - Trace) 11/21/24 18:53 Urine Glucose (UA) Negative (Negative) 11/21/24 18:53 Urine Ketones Negative (Negative) 11/21/24 18:53 Urine Blood 1+ (Negative) A 11/21/24 18:53 Urine Nitrite Negative (Negative) 11/21/24 18:53 Urine Bilirubin Negative (Negative) 11/21/24 18:53 Urine Urobilinogen (Auto) Negative mg/dL (0.0-1.0) 11/21/24 18:53 Ur Leukocyte Esterase Positive (Negative) 11/21/24 18:53 Urine RBC 4 /hpf (0-3) H 11/21/24 18:53 Urine WBC 1 /hpf (0-5) 11/21/24 18:53 Ur Squamous Epith Cells 3 /hpf (0-5) 11/21/24 18:53 Urine Bacteria None (None) 11/21/24 18:53
[2024-11-22] MEDS: DIAZEPAM INJ 5 MG/ML VIAL 2 ML 2.5 MG IVP (08:43)
--- NOTE | 2024-11-22 08:50 | PC.NURSE ---
pt taken to MRI
[2024-11-22] MEDS: fentaNYL CIT INJ 50 mCg/ML AMP 2ML IVP (10:24)
--- NOTE | 2024-11-22 11:17 | PC.NURSE ---
CONSULTED TELENEURO PER DR JONES AWAITING CALL BACK AT THIS TIME
--- NOTE | 2024-11-22 12:06 | PD.TNEURO ---
Tele Neuro Consultation Consultation Date 11/22/24 Most Recent Vital Signs Last Vital Signs Temp 98.3 F 11/22/24 08:10 Pulse 106 H 11/22/24 08:10 Resp 16 11/22/24 08:10 BP 129/75 11/22/24 08:10 Pulse Ox 96 11/22/24 08:10 O2 Del Method Nasal Cannula 11/22/24 08:10 O2 Flow Rate 2 11/22/24 08:10 Laboratory-Coagulation Panel PT 12.4 Seconds (9.0-12.2) H 11/21/24 17:44 INR 1.1 (0.9-1.3) 11/21/24 17:44 APTT 31.4 Seconds (22.0-36.0) 11/21/24 17:44 Consultation Narrative [facility] TeleNeurology Consult Services Stat Consult Patient Name: Dorcas Espitia Date of : 1950 Identification Number: Date of Service: 11/22/2024 11:14:06 Diagnosis: ? I63.89 - Cerebrovascular accident (CVA) due to other mechanism ([facility]) Impression PT with a h/o breast cancer, COPD, HTN, afib presents noting difficulty getting back to her house on 11/20 night. She relates that she was short of breath and noted some changes on her right side including some numbness and weakness. NIHSS =2 with right LE drift and reporting right side decreased sensation. She has dyspnea but no clear aphasia. DDx includes stroke, metastatic disease, lumbar lesion. Recommend MRI brain w/ and w/o. If no abnormality on brain MRI would subsequently proceed with MRI thoracic and lumbar spine w/ and w/o. Continue eliquis, medical workup. Recommendations: Our recommendations are outlined below. Diagnostic Studies : MRI head with and without contrast Laboratory Studies : Lipid panel I ordered Hemoglobin A1c TSH Antithrombotic Medication : Statins for LDL goal less than 70 Nursing Recommendations : Continue with Telemetry Neuro checks q 4 hours Consultations : Recommend Speech therapy if failed dysphagia screen Physical therapy/Occupational therapy Inpatient rehab if recommended by physical/occupational therapy DVT Prophylaxis : Choice of Primary Team Disposition : Neurology will follow Advanced Imaging: CTA Head and Neck Completed. LVO:No Patient is not a candidate for BRANDON Metrics: Dispatch Time: 11/22/2024 11:12:23 Callback Response Time: 11/22/2024 11:19:01 Primary Provider Notified of Diagnostic Impression and Management Plan on: 11/22/2024 12:04:59 CT HEAD: CT head unremarkable for acute infarction or hemorrhage per Radiology: personally reviewed Chief Complaint: right sided numbness, weakness History of Present Illness: Patient is a 74 year old Female. PT with a h/o breast cancer, COPD, HTN, afib presents noting difficulty getting back to her house on 11/20 night. She relates that she was short of breath and noted some changes on her right side including numbness and weakness. She had difficulty with ambulation. She has been compliant with eliquis. She denies new pain, no back pain or LE pain. Past Medical History: ? Hypertension ? Atrial Fibrillation Medications: Anticoagulant use: Yes eliquis No Antiplatelet use Reviewed EMR for current medications Allergies: Reviewed Social History: Drug Use: No Family History: There is no family history of premature cerebrovascular disease pertinent to this consultation ROS : 14 Points Review of Systems was performed and was negative except mentioned in HPI. Past Surgical History: There Is No Surgical History Contributory To Today?s Visit Examination: BP(115/65), Pulse(113), 1A: Level of Consciousness - Alert; keenly responsive + 0 1B: Ask Month and Age - Both Questions Right + 0 1C: Blink Eyes & Squeeze Hands - Performs Both Tasks + 0 2: Test Horizontal Extraocular Movements - Normal + 0 3: Test Visual [place] - No Visual Loss + 0 4: Test Facial Palsy (Use Grimace if Obtunded) - Normal symmetry + 0 5A: Test Left Arm Motor Drift - No Drift for 10 Seconds + 0 5B: Test Right Arm Motor Drift - No Drift for 10 Seconds + 0 6A: Test Left Leg Motor Drift - No Drift for 5 Seconds + 0 6B: Test Right Leg Motor Drift - Drift, but doesn't hit bed + 1 7: Test Limb Ataxia (FNF/Heel-Mayer) - No Ataxia + 0 8: Test Sensation - Mild-Moderate Loss: Less Sharp/More Dull + 1 9: Test Language/Aphasia - Normal; No aphasia + 0 10: Test Dysarthria - Normal + 0 11: Test Extinction/Inattention - No abnormality + 0 NIHSS Score: 2 Spoke with : Dr. Sams This consult was conducted in real time using interactive audio and video technology. Patient was informed of the technology being used for this visit and agreed to proceed. Patient located in hospital and provider located at home/office setting. Patient is being evaluated for possible acute neurologic impairment and high probability of imminent or life - threatening deterioration.I spent total of 41 minutes providing care to this patient, including time for face to face visit via telemedicine, review of medical records, imaging studies and discussion of findings with providers, the patient and / or family. Dr Ebony Elizondo [facility] For Inpatient follow-up with [facility] physician please call [facility] at . As we are not an outpatient service for any post hospital discharge needs please contact the hospital for assistance. If you have any questions for the [facility] physicians or need to reconsult for clinical or diagnostic changes please contact us via [facility] at . Signature : Ebony Elizondo
[2024-11-22] MEDS: ACETAMINOPHEN IVPB 1,000 MG/100 ML VIAL 250 MG IV (12:14)
[2024-11-22 12:23] LABS: Basophils # (Auto) 0.0 Thou/mm3 (0.0-0.2); Basophils % (Auto) 0 % (0-2.5); Eosinophils # (Auto) 0.0 Thou/mm3 (0.0-0.5); Eosinophils % (Auto) 0 % (0-10); Hematocrit 47.3 % (36.0-46.0); Hemoglobin 15.1 g/dL (12.0-16.0); Immature Granulocytes Auto 0.01 Thou/mm3 (0.00-0.00); Lymphocytes # (Auto) 0.7 Thou/mm3 (1.0-4.8); Lymphocytes % (Auto) 12 % (10-50); Mean Corpuscular HGB Conc 31.9 g/dl (31.0-37.0); Mean Corpuscular Hemoglobin 27.1 pg (25.0-35.0); Mean Corpuscular Volume 85 fL (80-100); Monocytes # (Auto) 0.1 Thou/mm3 (0.0-0.8); Monocytes % (Auto) 2 % (0-12); Neutrophils # (Auto) 5.0 Thou/mm3 (1.8-7.7); Neutrophils % (Auto) 86 % (37-80); Nucleated Red Blood Cell # 0.00 Thou/mm3 (0.00-0.00); Nucleated Red Blood Cell % 0 /100 WBC (0); Platelet Count 319 Thou/mm3 (140-440); RDW Standard Deviation 48.0 fL (36.4-46.3); Red Blood Count 5.58 Miln/mm3 (4.00-5.20); White Blood Count 5.8 Thou/mm3 (3.6-11.0)
[2024-11-22 12:58] LABS: Alanine Aminotransferase 14 U/L (10-49); Albumin, Serum 4.2 gm/dL (3.4-4.8); Albumin/Globulin Ratio 1.1 (1.2-2.2); Alkaline Phosphatase 102 U/L (46-116); Anion Gap 11 (7-16); Aspartate Amino Transferase 20 U/L (0-34); BUN/Creatinine Ratio 14 Ratio (12-20); Bilirubin,Total 0.6 mg/dL (0.3-1.2); Blood Urea Nitrogen 10 mg/dL (9-23); Calcium 9.3 mg/dL (8.3-10.6); Calcium (Corrected) 9.3 mg/dL (8.5-10.1); Carbon Dioxide 28.9 mMol/L (20.0-31.0); Chloride 100 mMol/L (98-107); Creatinine (Component) 0.7 mg/dL (0.6-1.3); Estimated Creatinine Clearance 67.5 mL/min (>60); Globulin 3.7 gm/dL (2.3-3.5); Glucose 134 mg/dL (74-106); Magnesium 1.8 mg/dL (1.6-2.6); Osmolality,Calculated 280 (275-295); Potassium 3.8 mMol/L (3.4-5.1); Sodium 140 mMol/L (136-145); Total Protein 7.9 gm/dL (5.7-8.2); eGFR > 60 See Note
[2024-11-22] MEDS: AZITHROMYCIN INJ 500 MG in SODIUM CHLORIDE 0.9% 250 ML 250 ML 250 MG IV (14:44)
[2024-11-22] MEDS: Magnesium Sulfate 4 GM Ivpb 4 GM/50 ML BAG IV (14:49)
[2024-11-22] MEDS: AMIODARONE HCL 200 MG TABLET PO (14:55)
[2024-11-22] MEDS: FUROSEMIDE INJ 10 MG/ML 4ML VIAL 40 MG IVP (14:55)
[2024-11-22] MEDS: APIXABAN 2.5 MG TABLET 5 MG PO (15:01)
--- NOTE | 2024-11-22 15:23 | ESHP_ITS ---
<Statement entered by Genesis Helton MD - 11/26/24 14:37> I reviewed above note and agree with findings and plans. I have also personally examined the patient with medicine team and went over assessment and plan with medical team including hospitality intern and resident physician. <Statement entered by Jovita Sams MD - 11/22/24 18:08> Patient was seen and examined at bedside. I agree on the assessment and plan on this note as documented by resident Samantha Diaz PGY1. Ms. Espitia is a 74-year-old female with past medical history of breast cancer, COPD, hypertension, peripheral and coronary artery disease, status post PCI and stent placement in the past, atrial fibrillation on Eliquis, chronic smoker and substance use disorder who presented to [facility] emergency department with chief complaint of right-sided weakness. Patient is a poor historian, endorse that she started feeling short of breath and some chest tightness while walking back to her home, did not endorse right leg weakness on presentation, stroke alert was initiated in ED. Teleneurology recommended neurochecks every 4 hours and MRI, patient not a candidate for TNK as she is on Eliquis. Otherwise for patient's respiratory distress patient likely has multifactorial etiology with COPD exacerbation, left lobe pneumonia and a component of acute decompensated heart failure. Patient is noncompliant outpatient and is nonadherent to her medical treatment, we will start patient on DuoNeb every 4 hours and DuoNeb as needed, IV methylprednisolone 40 mg daily, ceftriaxone and azithromycin for pneumonia, Lasix 40 mg IV daily. Pro-Zac and lactate negative in ED however we will follow cultures. Follow echocardiogram, resumed home dose amiodarone per med rec for A-fib, resume home dose Eliquis per teleneurology recommendations. Monitor blood pressure, troponins were negative and EKG showed no acute ST-T changes in ED, currently low suspicion of ACS however we will monitor for any active chest pain. Disposition telemetry, pending improvement in respiratory status, goal SpO2 greater than 88. Of note CT chest did show dilated biliary tract, MRCP reflective of similar findings however alk phos negative, AST ALT negative, no abdominal pain Bridges sign negative currently low suspicion of any biliary etiology. Case discussed with attending Dr. Sunitha Sams MD PGY-2 Documentation for date of: 11/22/24 HPI History of Present Illness Chief complaint: shortness of breath, right leg weakness History of present illness: A 74 year old female with past medical history of breast cancer, COPD, HTN, PAD, CAD s/p 2 stents, atrial fibrillation on Eliquis presented to ED on 11/21/2024 with chief complains of shortness of breath, right leg weakness. However, patient is poor historian, she verbalizes that 3 days ago she felt shortness of breath and chest tightness while back to her home. Associated with orthopnea,, paroxysmal nocturnal dyspnea, symptom relief relieved with leaning forward. Additionally patient noted right leg weakness and tingling sensation simultaneously with difficulty speaking and was able to walk back into the house with the assistance of her son. She denies vision changes, nausea, vomiting, fever, chills, fatigue, recent changes in weight. ED Course: -Initial vitals were BP 136/93, HR 110 and irregular, O2 sat on 95 on room air -Labs significant for PT 12.4, anion gap 6, 0.6, BUN/creatinine 10, glucose 107, BNP is 504, UA negative -Imaging included CT negative for acute hemorrhage, head neck CTA showed 14 mm left thyroid nodule, chest CT showed extensive pneumonia and volume loss in the left lung, 8 mm pulmonary nodule on the right upper lobe, cholangiopancreato-MRI shows significant intra extrahepatic biliary tract dilation. -In the ED, patient was given furosemide, DuoNeb, methylprednisolone, acetaminophen, diazepm -Patient was admitted for acute respiratory distress and CVA workup. Past Medical History: Breast cancer, skin cancer Family History: Sisters lung cancer and leukemia Social History: 1/2 pack cigarettes for 40 years (recently quit), of denies current alcohol use, denies recreational drug use Current Medications: (Source: med list ) Allergies: Penicillins, latex, adhesive tape Review of Systems Constitutional Comments: Lightheadedness, headache, back pain Respiratory Respiratory: Reports as per HPI Exam Vital Signs Temp Pulse Resp BP Pulse Ox O2 Del Method O2 Flow Rate 98.3 F 109 H 22 H 143/89 H 95 Nasal Cannula 2 11/22/24 12:00 11/22/24 14:55 11/22/24 14:38 11/22/24 14:55 11/22/24 14:38 11/22/24 12:00 11/22/24 14:38 Narrative Exam Physical Exam General: Awake, in acute distress. Conversational and non-toxic appearing. HEENT: Normocephalic, atraumatic, mucous membranes dry. Heart: Tachycardic, irregular, normal S1 and S2, no murmurs. Lungs: Markedly diminished breath sound bilateral with no wheezing or crackles. Abdomen: Soft, nondistended, nontender, positive bowel sounds. ?No guarding or rebound tenderness. Neurologic: Alert and oriented x3, no gross neurological deficit, Cranial II- XII intact, right UE mild tremor, strength 3/5 right lower and upper extremities. Extremities: Lower extremity mildly tender to palpation, no edema. Skin: No rash or ecchymoses. Results: Labs 11/22/24 12:17 11/22/24 12:17 Labs: Short CBC 11/21/24 11/22/24 Range/Units 17:44 12:17 WBC 7.6 5.8 (3.6-11.0) Thou/mm3 Hgb 13.8 15.1 (12.0-16.0) g/dL Hct 43.4 47.3 H (36.0-46.0) % Plt Count 285 319 D (140-440) Thou/mm3 BMP 11/21/24 11/22/24 17:44 12:17 Sodium 139 140 Potassium 4.1 3.8 Chloride 102 100 Carbon Dioxide 30.6 28.9 BUN 6 L 10 Creatinine 0.6 0.7 Glucose 107 H 134 H Calcium 8.9 9.3 Cardiac Enzymes 11/21/24 Range/Units 17:44 Troponin I < 0.020 (0.0-0.045) ng/mL Liver Function 11/21/24 11/22/24 Range/Units 17:44 12:17 Total Bilirubin 0.6 0.6 (0.3-1.2) mg/dL AST 24 20 (0-34) U/L ALT 11 14 (10-49) U/L Alkaline Phosphatase 98 102 (46-116) U/L Albumin 3.9 4.2 (3.4-4.8) gm/dL Urine 11/21/24 Range/Units 18:53 Urine Color Lt-Yellow (Lt Yel-Yel) Urine Clarity Clear (Clear/Hazy) Urine pH 7.0 (5.0-7.0) Ur Specific Olin 1.005 (1.001-1.035) Urine Protein Negative (Neg - Trace) Urine Glucose (UA) Negative (Negative) Quality Measures Quality Measures none Advance care planning discussed with:: patient Medications Home Medications and Allergies Home Medications ?Medication ?Instructions ?Recorded ?Confirmed ?Type lisinopril 10 mg tablet 10 mg PO QDAY #0 tabs 01/10/24 History Held on 01/13/24. Instructions: Resume on 01/20/24. Hold due to low BPs. Reassess with PCP. Methadone * 5 mg PO Q6HR #0 tabs 7 01/10/24 History duloxetine 30 mg capsule,delayed 30 mg PO DAILY #0 cap s 02/08/17 01/10/24 History release (Cymbalta) esomeprazole magnesium 20 mg 20 mg PO DAILY 01/10/24 0 01/10/24 History capsule,delayed release fluticasone 250 mcg-salmeterol 50 1 inh inhalation BID 01/10/24 01/10/24 History mcg/dose blistr powdr for inhalation furosemide 20 mg tablet 20 mg PO DAILY 01/10/2412/16 History Held on 01/13/24. Instructions: Resume on 01/20/24. Hold due to low BP, reassess with Education Site Manager Allergies Allergy/AdvReac Type Severity Reaction Status Date / Time adhesive tape Allergy Severe BLISTER/RED Verified 11/21/24 17:08 NESS Penicillins Allergy Severe RASH / Verified 11/21/24 17:08 ITICHING/ Iodinated Contrast Media Allergy Intermediate Shakiness Verified 11/21/24 17:08 latex Allergy Mild Rash Verified 11/21/24 17:08 Visit Medications Acetaminophen (Acetaminophen 325 Mg Tablet) 650 mg PO Q6H PRN PRN Reason: Pain (1-3) & Fever >100.4 Stop: 12/22/24 14:13 Albuterol/Ipratropium (Albuterol/Ipratropium (Duoneb) Rt Eladia 3 Ml Nebu) 3 ml INH Q4HRRT AMANDO Stop: 12/22/24 14:59 Last Admin: 11/22/24 14:37 Dose: 3 ml Albuterol/Ipratropium (Albuterol/Ipratropium (Duoneb) Rt Eladia 3 Ml Nebu) 3 ml INH Q2HR PRN PRN Reason: SHORTNESS OF BREATH OR WHEEZE Stop: 12/22/24 14:13 Amiodarone HCl (Amiodarone Hcl 200 Mg Tablet) 200 mg PO QDAY [facility] Stop: 12/22/24 14:29 Last Admin: 11/22/24 14:55 Dose: 200 mg Apixaban (Apixaban 2.5 Mg Tablet) 5 mg PO BID [facility] Stop: 12/22/24 14:59 Last Admin: 11/22/24 15:01 Dose: 5 mg Furosemide (Furosemide Inj 10 Mg/Ml 4ml Vial) 40 mg IVP QDAY [facility] Stop: 12/23/24 08:59 Ceftriaxone Sodium/Dextrose (Rocephin/D5w 1gm Iv Premix) 1 gm in 50 mls @ 100 mls/hr IV QDAY [facility] Stop: 11/30/24 08:59 Azithromycin 500 mg/ Sodium (Chloride) 250 mls @ 250 mls/hr IV QDAY [facility] Stop: 11/25/24 14:23 Magnesium Sulfate (Magnesium Sulfate Ivpb) 4 gm in 50 mls @ 12.5 mls/hr IV X1 ONE Stop: 11/22/24 18:25 Last Admin: 11/22/24 14:49 Dose: 12.5 mls/hr Azithromycin 500 mg/ Sodium (Chloride) 250 mls @ 250 mls/hr IV X1 ONE Stop: 11/22/24 15:29 Last Admin: 11/22/24 14:44 Dose: 250 mls/hr Methylprednisolone Sodium Succinate (Methylprednisolone Sod Succ 40 Mg Vial) 40 mg IVP QDAY [facility] Stop: 11/29/24 14:29 Last Admin: 11/22/24 14:55 Dose: 40 mg Ondansetron HCl (Ondansetron Inj 2 Mg/Ml Inj 2 Ml) 4 mg IVP Q6H PRN; Protocol PRN Reason: NAUSEA OR VOMITING Stop: 12/22/24 14:13 Pantoprazole Sodium (Pantoprazole Inj 40 Mg Vial) 40 mg IVP QDAY [facility] Stop: 12/23/24 08:59 Sennosides (Senna Tablet) 1 tab PO QDAY [facility]; Protocol Stop: 12/23/24 08:59 Tramadol HCl (Tramadol Hcl 50 Mg Tablet) 50 mg PO Q8HR PRN PRN Reason: PAIN SCALE 4-10(Mod-Sev Stop: 11/27/24 14:13 Discontinued Medications Albuterol (Albuterol Rt 2.5 Mg/3 Ml Nebu) 2.5 mg INH X1 ONE Stop: 11/22/24 02:30 Last Admin: 11/22/24 03:11 Dose: Not Given Albuterol/Ipratropium (Albuterol/Ipratropium (Duoneb) Rt Eladia 3 Ml Nebu) 3 ml INH X1 ONE Stop: 11/21/24 21:23 Last Admin: 11/21/24 21:49 Dose: 3 ml Albuterol/Ipratropium (Albuterol/Ipratropium (Duoneb) Rt Eladia 3 Ml Nebu) 3 ml INH X1 ONE Stop: 11/22/24 02:31 Last Admin: 11/22/24 02:46 Dose: 3 ml Diazepam (Diazepam Inj 5 Mg/Ml Vial 2 Ml) 2.5 mg IVP X1 ONE Stop: 11/22/24 08:05 Last Admin: 11/22/24 08:43 Dose: 2.5 mg Diphenhydramine HCl (Diphenhydramine Inj 50 Mg/Ml Vial) 50 mg IVP X1 ONE Stop: 11/21/24 21:46 Last Admin: 11/21/24 22:05 Dose: 50 mg Fentanyl Citrate (Fentanyl Cit Inj 50 Mcg/Ml Amp 2ml) 50 mcg IVP X1 ONE Stop: 11/22/24 09:29 Last Admin: 11/22/24 10:24 Dose: 50 mcg Furosemide (Furosemide Inj 10 Mg/Ml Vial 2 Ml) 20 mg IVP X1 ONE Stop: 11/21/24 21:22 Last Admin: 11/21/24 21:31 Dose: 20 mg Furosemide (Furosemide Inj 10 Mg/Ml 4ml Vial) 40 mg IVP X1 ONE Stop: 11/22/24 14:27 Last Admin: 11/22/24 14:55 Dose: 40 mg Ceftriaxone Sodium/Dextrose (Rocephin/D5w 1gm Iv Premix) 1 gm in 50 mls @ 100 mls/hr IV X1 ONE Stop: 11/22/24 04:22 Last Infusion: 11/22/24 04:53 Dose: Infused Doxycycline Hyclate 100 mg/ (Sodium Chloride) 100 mls @ 100 mls/hr IV X1 ONE Stop: 11/22/24 04:53 Last Infusion: 11/22/24 06:26 Dose: Infused Acetaminophen (Ofirmev Inj) 1,000 mg in 100 mls @ 250 mls/hr IV X1 ONE Stop: 11/22/24 12:21 Last Infusion: 11/22/24 12:40 Dose: Infused Methylprednisolone Sodium Succinate (Methylprednisolone Sod Succ 40 Mg Vial) 125 mg IVP X1 ONE Stop: 11/21/24 21:46 Last Admin: 11/21/24 22:06 Dose: Not Given Methylprednisolone Sodium Succinate (Methylprednisolone Sod Succ 62.5 Mg/Ml 2ml Vial) 125 mg IVP X1 ONE Stop: 11/21/24 21:58 Last Admin: 11/21/24 22:05 Dose: 125 mg Potassium Chloride (Potassium Chloride 20 Meq Tabcr) 20 meq PO X1 ONE Stop: 11/22/24 14:26 Last Admin: 11/22/24 14:55 Dose: 20 meq Sodium Chloride (Sodium Chloride Rt 10% 15 Ml Nebu) 5 ml INH X1 ONE Stop: 11/22/24 14:25 Assessment & Plan Plan 74-year-old female, history of breast cancer, COPD, pretension, PAD, atrial fibrillation, presented to the ED with shortness of breath, right leg weakness and slurred speech admitted for acute respiratory distress management and CVA workup. #Acute respiratory distress 2/2 #COPD exacerbation #Left lobe pneumonia #Acute decompensated heart failure #HFpEF, EF 55% Patient has a history of COPD that was managed at home with fluticasone propionate salmeterol. Recently exacerbated dypnea, mildly relief in a Semi- Elizondo position. CT chest showed extensive pneumonia and volume status of the left lung. Previous Echo showed mild circumferential pericardial effusion and ejection fraction of 50 to 55%. PSI/port is class IV, patient require follow-up pneumonia management. Plan - Start DuoNeb 3 mL Q4HRRT - Start albuterol/ipratropium - Start methylprednisolone 40 mg IV daily - O2 saturation> 88 - continue to monitor - Start azithromycin 500 mg IV daily ( 11/22/24-) - Start ceftriaxone 1 g IV daily (11/23/24-) - MRSA nasal screen ordered - Sputum culture ordered - Blood culture - procalcitonin - A1c - Lipid panel - Started on Lasix 40 daily - Start monitor strict ins and outs - IV fluid restrict to 1500 - Daily weight monitoring - Echo bubble study ordered - Elevation of bed greater than 30 # CVA workup Likely TIA Patient presented with slurred speech, on neuro exam strength 3/5 in right upper and lower extremities; mild tremor on upper extremities more prominent of the Right side. CT was negative for acute hemorrhage, mass effect or midline shift. Plan - MRI ordered - Neurology consulted, awaiting further recs - Resume Eliquis 5 mg p.o. twice daily - Start atorvastatin 80 mg p.o. at bedtime - A1c - Echo pending - Neurocheck every 4 hours - PT/OT referral # Atrial fibrillation, rate controlled Patient has a history of atrial fibrillation RVR, managed with meds Eliquis. [id number] for atrial fibrillation stroke risk is 7 point, with score >2, high risk of stroke and indicating the need of anticoagulant. HAS-BLED score of 3. Plan - Restart amiodarone 200 mg p.o. daily - Resume Eliquis - Monitor electrolytes - Keep k>4, Mg>2 - TSH, Free T4 order # Hypertension # CAD s/p 2stents # PAD # Nicotine Dependence Patient has a history of hypertension, CAD s/p 2 stents in the past and PAD. Also has a history of hypertension manage Home med lisinopril, pending med rec Plan - Continue monitor vital - Hold anti-hypertensives meds - Smoking Cessation Counselling Hospital management: Lines: peripheral IV Diet: NPO Bowel: Senna GI prophylaxis: pantoprazole DVT prophylaxis: SCDs Disposition: tele bed CODE STATUS: Full code Patient seen and assessed under supervision of attending physician Dr. Helton and discuss with senior resident Dr. Sams PGY-2 Samantha Diaz MD PGY-1, Internal Medicine
[2024-11-22 15:33] LABS: Lactate (Lactic Acid) 1.6 mMol/L (0.4-2.0)
[2024-11-22 16:23] LABS: Procalcitonin < 0.04 ng/ml (0.0-0.49)
[2024-11-22] MEDS: MORPHINE SULF INJ 10 MG/ML VIAL 2 MG IVP (16:25)
[2024-11-22] MEDS: ATORVASTATIN CALCIUM 20 MG TABLET 80 MG PO (20:28)
[2024-11-23] VITALS (16 sets, daily range): BP systolic 103–124; BP diastolic 65–83; PULSE 90–119; RESP 16–21; TEMP 36.2–36.7; O2SAT 95–100; BMI 23.3; BMI 13.0
[2024-11-23] MEDS: ALBUTEROL/IPRATROPIUM (Duoneb) RT SOL 3 ML NEBU INH ×6 (02:23→23:21)
[2024-11-23] MEDS: ACETAMINOPHEN 325 MG TABLET 650 MG PO ×2 (02:37→12:43)
[2024-11-23 06:11] LABS: Basophils # (Auto) 0.0 Thou/mm3 (0.0-0.2); Basophils % (Auto) 0 % (0-2.5); Eosinophils # (Auto) 0.0 Thou/mm3 (0.0-0.5); Eosinophils % (Auto) 0 % (0-10); Hematocrit 44.8 % (36.0-46.0); Hemoglobin 14.6 g/dL (12.0-16.0); Immature Granulocytes Auto 0.03 Thou/mm3 (0.00-0.00); Lymphocytes # (Auto) 0.8 Thou/mm3 (1.0-4.8); Lymphocytes % (Auto) 10 % (10-50); Mean Corpuscular HGB Conc 32.6 g/dl (31.0-37.0); Mean Corpuscular Hemoglobin 27.8 pg (25.0-35.0); Mean Corpuscular Volume 85 fL (80-100); Monocytes # (Auto) 0.7 Thou/mm3 (0.0-0.8); Monocytes % (Auto) 8 % (0-12); Neutrophils # (Auto) 7.2 Thou/mm3 (1.8-7.7); Neutrophils % (Auto) 82 % (37-80); Nucleated Red Blood Cell # 0.00 Thou/mm3 (0.00-0.00); Nucleated Red Blood Cell % 0 /100 WBC (0); Platelet Count 232 Thou/mm3 (140-440); RDW Standard Deviation 49.4 fL (36.4-46.3); Red Blood Count 5.26 Miln/mm3 (4.00-5.20); White Blood Count 8.7 Thou/mm3 (3.6-11.0)
[2024-11-23 06:19] LABS: Glucose Estimated Average 120 mg/dL (80-131); Hemoglobin A1C 5.8 % Hgb (4.8-6.0)
[2024-11-23 06:46] LABS: Iron 28 mcg/dL (50-170); Percent Iron Saturation 8 % (20-55); Total Iron Binding Capacity 329 mcg/dL (250-425); Unsaturated Iron Binding 301 (225-295)
--- NOTE | 2024-11-23 08:56 | XR_ITS ---
Examination: Venous duplex lower extremity sonogram, bilateral. Date and time of exam: November 23, 2024 0926 hours INDICATIONS: Bilateral leg pain and tenderness today, patient is anticoagulated Technique: Multiple sonographic images of the deep venous system have been obtained. B-mode/2-D grayscale imaging of vascular structures and Doppler spectral analysis (waveforms) and color performed Both legs are examined. Findings: Negative for DVT right lower extremity Nonocclusive acute thrombus in the mid left superficial femoral vein IMPRESSION: Positive for nonocclusive thrombus in the mid left superficial femoral vein
--- NOTE | 2024-11-23 08:58 | PD.TNEUROPRO ---
Tele Neuro Progress Note Progress Note Date 11/23/24 [facility] Tele[facility]urology Progress Note Date of Service 11/23/2024 Presentation: Based on previous neurology note(s) : PT with a h/o breast cancer, COPD, HTN, afib presents noting difficulty getting back to her house on 11/20 night. She relates that she was short of breath and noted some changes on her right side including some numbness and weakness. NIHSS =2 with right LE drift and reporting right side decreased sensation. on eliquis prior to admission Interval history: 11/23/2024: no events overnight Impression: 1- Atrial Fibrillation 2- Multifocal left hemispheric strokes (embolic pattern, likely due to the above) Recommendations: (Primary Team to order Controlled Medications) Unless specifically noted I Agree with Impression and Plan from previous Neurology note/consult. 1- Risk factor management If stroke is confirmed: Statin for Goal LDL<70, primary team to order Goal HbA1c<7; Blood pressure management: should slowly and gradually lower Blood Pressure to <130/80 over the course of one week (if no cardiovascular contraindication or any critical/severe intra or extracranial arterial stenosis, and if it does not elicit or exacerbate symptoms). avoid hypotension or rapid decrease in Blood Pressure. 2- Work up and Results: Brain MRI: Pending Head and neck Vascular imaging: CTA Head and Neck No Critical large vessel Stenosis or Occlusion reported. ECHO: Pending LDL and HbA1c: Pending has new leg pain, ordered bilateral leg ultrasound c if no cause for shortness of breath is found then CTA chest to rule out PE. 3- Antithrombotic regimen: A- given Acute Ischemic Stroke hold anticoagulation for now, started on aspirin 81mg daily, based on clinical evolution will decide when to resume anticoagulation, strokes are small so if no complication happens expect to resume anticoagulation in 4 days, Once/If anticoagulation is started (timing has to be discussed with neurologist) then can stop antiplatelet therapy (unless there is a definite cardiovascular indication for concurrent use of Antiplatelet therapy and anticoagulation) 4- Nursing recommendations: IV Fluids, avoid dextrose containing fluids Maintain euglycemia Neuro checks every 4 hours for 24 hours and then per shift Head of bed 30 degrees 5- Life Style modifications for stroke prevention should be followed: Diet. Mediterranean diet rich in fruits, vegetables, whole grains, fish, legumes, plant-based oils preferred over animal fats. Reduce sodium intake as directed by primary care physician. Exercise. Aim for 150-minutes of moderate to intense exercise per week in sessions of at least 10 minutes duration as tolerated. Tobacco. Tobacco cessation with counseling and/or pharmacologic management Alcohol. Reduce alcohol consumption as directed by primary care physician. Hormone therapy. Avoid estrogen and testosterone containing medications Sleep. Evaluation and treatment of sleep apnea Return precautions. Seek emergency medical attention if you cannot see, speak, move or feel as you do normally for any abnormal length of time as these may be signs of a stroke [facility] Neurologist will follow up with results. Please contact [facility] Navigator to reach me if further questions/concerns arise. Examination: Examination done through interactive audio and video telecommunications with the assist of bedside nursing (when available) is short of breath awake, alert, oriented x3 speech no aphasia Extraocular movements intact face symmetric arms no drift (10s) right leg mild drift has new bilateral leg pain Patient / Family was informed the Neurology Consult would occur via Tele[facility] consult by way of interactive audio and video telecommunications and consented to receiving care in this manner. Patient is being evaluated for possible acute neurologic impairment and high probability of imminent or life - threatening deterioration. I spent total of 15 minutes providing care to this patient, including time for face to face visit via telemedicine, review of medical records, imaging studies and discussion of findings with providers, the patient and / or family. Dr Marcos Babb [facility] For Inpatient follow-up with [facility] physician please call [facility] . This is not an outpatient service. Post hospital discharge, please contact hospital directly. Please do not communicate with [facility] physicians via secure chat. If you have any questions, Please contact [facility]. Please call or reconsult our service if there are any clinical or diagnostic changes. Most Recent Vital Signs Last Vital Signs Temp 97.6 F 11/23/24 08:00 Pulse 106 H 11/23/24 08:00 Resp 18 11/23/24 08:00 BP 124/73 11/23/24 08:00 Pulse Ox 99 11/23/24 08:00 O2 Del Method Room Air 11/23/24 08:00 O2 Flow Rate 2 11/23/24 06:50 Laboratory-Coagulation Panel PT 12.4 Seconds (9.0-12.2) H 11/21/24 17:44 INR 1.1 (0.9-1.3) 11/21/24 17:44 APTT 31.4 Seconds (22.0-36.0) 11/21/24 17:44
[2024-11-23] MEDS: cefTRIAXone/D5w 1gm IV premix 1 GM/50 ML BAG IV (09:10)
[2024-11-23] MEDS: AMIODARONE HCL 200 MG TABLET PO (09:17)
[2024-11-23] MEDS: ASPIRIN EC 81 MG TABEC PO (09:18)
[2024-11-23] MEDS: FUROSEMIDE INJ 10 MG/ML 4ML VIAL 40 MG IVP (09:18)
[2024-11-23] MEDS: AZITHROMYCIN INJ 500 MG in SODIUM CHLORIDE 0.9% 250 ML 250 ML 250 MG IV (09:41)
[2024-11-23 10:02] LABS: Alanine Aminotransferase 13 U/L (10-49); Albumin, Serum 4.0 gm/dL (3.4-4.8); Albumin/Globulin Ratio 1.1 (1.2-2.2); Alkaline Phosphatase 90 U/L (46-116); Anion Gap 10 (7-16); Aspartate Amino Transferase 21 U/L (0-34); BUN/Creatinine Ratio 21 Ratio (12-20); Bilirubin,Total 0.6 mg/dL (0.3-1.2); Blood Urea Nitrogen 19 mg/dL (9-23); Calcium 9.0 mg/dL (8.3-10.6); Calcium (Corrected) 9.0 mg/dL (8.5-10.1); Carbon Dioxide 29.8 mMol/L (20.0-31.0); Cardiac Risk Estimate 3.2 RATIO (3.7-5.6); Chloride 100 mMol/L (98-107); Cholesterol 145 mg/dL (132-200); Creatinine (Component) 0.9 mg/dL (0.6-1.3); Estimated Creatinine Clearance 52.5 mL/min (>60); Globulin 3.5 gm/dL (2.3-3.5); Glucose 130 mg/dL (74-106); HDL Cholesterol 45 mg/dL (40-60); LDL Cholesterol,Calculated 86 mg/dL (0-130); Magnesium 2.3 mg/dL (1.6-2.6); Osmolality,Calculated 283 (275-295); Phosphorous 4.9 mg/dL (2.4-5.1); Potassium 3.7 mMol/L (3.4-5.1); Sodium 140 mMol/L (136-145); Total Protein 7.5 gm/dL (5.7-8.2); Triglycerides 68 mg/dL (30-150); eGFR > 60 See Note
--- NOTE | 2024-11-23 11:10 | PC.SS ---
Addendum entered by June Carrington 11/23/24 14:37: Rounding note: Neurology recommendations pending, discharging home when medically clear. Original Note: Patient is 74YO Female, reason for visit: AHRF SECONDARY TO PNA. ? SS met with patient at bedside. Role and purpose of today?s contact was explained to patient. Patient confirmed her demographic information. Patient stated her son Gurwinder Solano [phone] is her primary medical surrogate decision maker. Patient reported being independent with ADL completion. She utilizes a cane and rollator for ambulation. Patient also has a shower chair. Patient utilizes 2L of oxygen nightly and as needed. DME provider is Radh[employer]. Pharmacy: [facility]. PCP: Mich Parry, last appt. was October 2024. Patient stated would like to return home at discharge and her son will be transporting her. Discharge plan: Home Next of Kin: Son Gurwinder Solano [phone]
[2024-11-23 12:49] LABS: Free T4 (Free Thyroxine) 1.64 ng/dL (0.89-1.76)
[2024-11-23 12:50] LABS: Thyroid Stimulating Hormone 1.03 uIU/mL (0.55-4.78)
--- NOTE | 2024-11-23 14:03 | ESPR_ITS ---
<Statement entered by Genesis Helton MD - 11/26/24 14:39> I reviewed above note and agree with findings and plans. I have also personally examined the patient with medicine team and went over assessment and plan with medical team including financial services intern and resident physician. <Statement entered by Candy Alonzo MD - 11/23/24 22:15> Pt is seen at bedside, endorses to significant LE pain bilaterally. Pt was taking anticoagulation at home for afib despite that MRI confirms ischemic stroke in multiple areas. Pt however denies any weakness in LE, denies vision changes, denies any changes in speech. LE US is positive for DVT. Per tele neuro recs, will hold off on anticoagulation due to risk of hemorrhagic conversion and will start Aspirin 81mg daily. Will continue IV antibiotics for CAP. Will continue to monitor. Patient was seen and examined by me personally. I have directly supervised and reviewed documentation by the team resident and agree with its findings. ------- Plan of care was discussed with the attending, Dr. Sunitha Alonzo, PGY-2 Documentation for date of: 11/23/24 Subjective Subjective Interval history: No acute overnight events. Patient seen and examined at bedside. Patient reports no new left lower leg pain on light touch and bilateral extreme skin sensitivity. Does have low back pain with sciatica, which is chronic. Reports improved breathing compared to last night, however is having urinary retention. Patient feels much less weak on her right side the compared to yesterday. MRI brain resulted showing multiple embolic type strokes in the left hemisphere. Lower left extremity ultrasound shows nonoccluding thrombus in the mid left superficial femoral vein. Ordered bladder scans every 4 hour and a straight cath if over 350 mL. Continue holding Eliquis, per neuro can resume anticoagulation in 4 days if patient remains stable. Continue DuoNeb treatments, methylprednisolone 40 mg IV, Lasix 40 IV daily. Continue azithromycin and ceftriaxone. Blood cultures pending. Exam Vital Signs Temp Pulse Resp BP Pulse Ox O2 Del Method O2 Flow Rate 97.6 F 92 18 124/73 99 Room Air 2 11/23/24 08:00 11/23/24 10:36 11/23/24 10:36 11/23/24 09:18 11/23/24 10:36 11/23/24 08:00 11/23/24 10:36 Narrative Exam GENERAL: AOx3, in pain while LLE US being performed, conversational HEENT: NC/AT, mucous membranes dry, bilateral sclera anicteric CARDIOVASCULAR: irregular rate and tachycardic, S1/S2 present, no murmurs appreciated PULMONARY: b/l diminished breath sounds most prominent at the bases, + b/l inspiratory and expiratory wheezes ABDOMINAL: soft, non-tender, non-distended, no rebound/guarding, bowel sounds present EXTREMITIES: no peripheral edema, BLE tender to palpation most at medial lower legs SKIN: warm and dry, intact, no rashes NEURO: CN II-XII grossly intact, alert, following commands Muscle strength: 5/5 in bilateral elbow flexion and extension and shoulder abduction 5/5 L hip flexion 4/5 R hip flexion Objective Labs 11/23/24 05:13 11/23/24 09:29 Labs: Laboratory Results - last 24 hr 11/22/24 11/23/24 11/23/24 15:20 05:13 09:29 WBC 8.7 D RBC 5.26 H Hgb 14.6 Hct 44.8 MCV 85 MCH 27.8 MCHC 32.6 RDW Std Deviation 49.4 H Plt Count 232 D Neut % (Auto) 82 H Lymph % (Auto) 10 [place] % (Auto) 8 Eos % (Auto) 0 Baso % (Auto) 0 Neut # (Auto) 7.2 Lymph # (Auto) 0.8 L [place] # (Auto) 0.7 Eos # (Auto) 0.0 Baso # (Auto) 0.0 Immature Gran # (Auto) 0.03 H Absolute Nucleated RBC 0.00 Immature Gran % 0 Nucleated RBC % 0 Sodium 140 Potassium 3.7 Chloride 100 Carbon Dioxide 29.8 Anion Gap 10 BUN 19 Creatinine 0.9 Estim Creat Clear Calc 52.5 L eGFR > 60 BUN/Creatinine Ratio 21 H Glucose [address] Glu mg/dL 120 Hemoglobin A1c 5.8 Calculated Osmolality 283 Lactic Acid 1.6 Calcium 9.0 Corrected Calcium 9.0 Phosphorus 4.9 Magnesium 2.3 Iron 28 L TIBC 329 Iron Saturation 8 L Unsat Iron Binding 301 H Total Bilirubin 0.6 AST 21 ALT 13 Alkaline Phosphatase 90 Total Protein 7.5 Albumin 4.0 Globulin 3.5 Albumin/Globulin Ratio 1.1 L Triglycerides 68 Cholesterol 145 LDL Cholesterol, Calc 86 HDL Cholesterol 45 Cholesterol/HDL Ratio 3.2 L Procalcitonin < 0.04 TSH 1.03 Free T4 1.64 Quality Measures Quality Measures none Advance care planning discussed with:: patient Assessment & Plan Assessment Current Active Medications: Generic Name Dose Route Start Last Admin Trade Name Freq PRN Reason Stop Dose Admin Acetaminophen 650 mg 11/22/24 14:14 11/23/24 12:43 Acetaminophen 325 Mg Tablet PO 12/22/24 14:13 650 mg Q6H PRN Administration Pain (1-3) & Fever >100.4 Albuterol/Ipratropium 3 ml 11/22/24 15:00 11/23/24 10:34 Albuterol/Ipratropium (Duoneb) Rt Eladia 3 Ml Nebu INH 12/22/24 14:59 3 ml Q4HRRT AMANDO Administration Albuterol/Ipratropium 3 ml 11/22/24 14:14 Albuterol/Ipratropium (Duoneb) Rt Eladia 3 Ml Nebu INH 12/22/24 14:13 Q2HR PRN SHORTNESS OF BREATH OR WHEEZE Amiodarone HCl 200 mg 11/22/24 14:30 11/23/24 09:17 Amiodarone Hcl 200 Mg Tablet PO 12/22/24 14:29 200 mg QDAY AMANDO Administration Apixaban 5 mg 11/22/24 15:00 11/22/24 15:01 Apixaban 2.5 Mg Tablet PO 12/22/24 14:59 5 mg BID AMANDO Administration Aspirin 81 mg 11/23/24 09:00 11/23/24 09:18 Aspirin Ec 81 Mg Tabec PO 12/23/24 08:59 81 mg QDAY AMANDO Administration Atorvastatin Calcium 80 mg 11/22/24 21:00 11/22/24 20:28 Atorvastatin Calcium 20 Mg Tablet PO 12/22/24 20:59 80 mg HS AMANDO Administration Furosemide 40 mg 11/23/24 09:00 11/23/24 09:18 Furosemide Inj 10 Mg/Ml 4ml Vial IVP 12/23/24 08:59 40 mg QDAY AMANDO Administration Ceftriaxone Sodium/Dextrose 1 gm in 50 mls @ 100 mls/hr 11/23/24 09:00 11/23/24 09:10 Rocephin/D5w 1gm Iv Premix IV 11/30/24 08:59 100 mls/hr QDAY AMANDO Administration Azithromycin 500 mg/ Sodium 250 mls @ 250 mls/hr 11/23/24 09:00 11/23/24 09:41 Chloride IV 11/30/24 08:59 250 mls/hr QDAY AMANDO Administration Methylprednisolone Sodium Succinate 40 mg 11/22/24 14:30 11/23/24 09:15 Methylprednisolone Sod Succ 40 Mg Vial IVP 11/29/24 14:29 40 mg QDAY AMANDO Administration Ondansetron HCl 4 mg 11/22/24 14:14 Ondansetron Inj 2 Mg/Ml Inj 2 Ml IVP 12/22/24 14:13 Q6H PRN NAUSEA OR VOMITING Protocol Pantoprazole Sodium 40 mg 11/23/24 09:00 11/23/24 09:18 Pantoprazole Inj 40 Mg Vial IVP 12/23/24 08:59 40 mg QDAY AMANDO Administration Sennosides 1 tab 11/23/24 09:00 11/23/24 09:18 Senna Tablet PO 12/23/24 08:59 1 tab QDAY AMANDO Administration Protocol Tramadol HCl 50 mg 11/22/24 14:14 11/22/24 20:37 Tramadol Hcl 50 Mg Tablet PO 11/27/24 14:13 50 mg Q8HR PRN Administration PAIN SCALE 4-10(Mod-Sev Plan Dorcas Espitia is a 74-year-old female pmhx significant for history of breast cancer, COPD, HTN, PAD, CAD s/p DESx2, and atrial fibrillation on Eliquis presented to [facility] ED on 11/22 with R sided weakness and shortness of breath admitted for ischemic CVA, COPD exacerbation and CAP. #Acute ischemic multifocal L hemispheric CVAs likely 2/2 #Atrial fibrillation, persistent, rate controlled #CAD s/p DESx2 #Nonoccuding DVT in mid L superficial femoral vein #PAD #HTN Patient presented with slurred speech, strength 3/5 in right upper and lower extremities; mild tremor on upper extremities R>L. R sided strength improving. CT was negative for acute hemorrhage, mass effect or midline shift. MRI showed multiple embolic type acute infarcts in the left temporal lobe, left parietal lobe, left basal ganglia, left occipital lobe, left frontal lobe Lower left extremity ultrasound shows nonocclusive thrombus in the mid left superficial femoral vein HbA1c 5.8, lipid panel LDL 86, trig, cholesterol and HDL wnl CHADsVASc score 8, HASBLED 4 Plan: - Neurology consulted, appreciate recs: Hold anticoagulation for now, started on aspirin 81 mg daily, if patient remains stable expect to resume anticoagulation in 4 days - Hold Eliquis 5 mg p.o. twice daily - ASA 81 mg QD and atorvastatin 80 mg qhs - Continue amiodoarone 200 mg QD - F/u echo - Neurochecks q4h - PT ordered - Keep K>4 and Mg>2 - Hold home HTN meds for now #Acute hypoxic respiratory failure 05/18 #COPD exacerbation #CAP #Acute decompensated heart failure #HFpEF EF 50-55% Patient has a history of COPD taking home fluticasone propionate salmeterol. CT chest showed extensive pneumonia and volume loss left lung. Abrupt termination of left mainstem bronchus, COPD, 8 mm pulmonary nodule upper right lobe, significant extrahepatic biliary tract dilatation 2023 Echo showed EF 50 to 55%. Mild MR, TR. PSI/port is class IV, patient require follow-up pneumonia management. Plan: - DuoNeb q4h - IV methylprednisolone 40 mg QD - Keep O2 saturation >88 - Azithromycin and ceftriaxone ( - F/u BCx - IV Lasix 40 mg QD - Strict I&O, daily weights, 1.5 L fluid restriction #Bladder retention Patient reports bladder retention and urge. Bladder scan 11/23 1L. Plan: - Bladder scans q4h, straight cath if >350 mL # Nicotine Dependence Plan: - Smoking Cessation Counselling - Consider nicotine patch Hospital management: Lines: peripheral IV Diet: dysphagia 2 Bowel: Senna GI prophylaxis: IV pantoprazole 40 mg QD DVT prophylaxis: SCDs if tolerated Disposition: tele for CVA workup, abx and duoneb tx CODE STATUS: Full code Plan of care discussed with attending Dr. Helton, and PGY-2 Dr. Alonzo. Keesha Walters, DO PGY-1 Internal Medicine
--- NOTE | 2024-11-23 14:03 | PC.PT ---
Patient is safe to transfer to a bedside commode with her 3 wheel walker and 1 staff assist. RN made aware.
--- NOTE | 2024-11-23 19:22 | PC.RT ---
Sputum collected and sent to lab.
[2024-11-23] MEDS: ATORVASTATIN CALCIUM 20 MG TABLET 80 MG PO (20:08)
[2024-11-24] VITALS (16 sets, daily range): BP systolic 100–132; BP diastolic 61–97; PULSE 92–132; RESP 15–23; TEMP 36–36.3; O2SAT 94–100; BMI 13.0
[2024-11-24] MEDS: ALBUTEROL/IPRATROPIUM (Duoneb) RT SOL 3 ML NEBU INH ×5 (03:04→23:17)
[2024-11-24] MEDS: ACETAMINOPHEN 325 MG TABLET 650 MG PO ×3 (03:11→23:48)
[2024-11-24 06:35] LABS: Basophils # (Auto) 0.0 Thou/mm3 (0.0-0.2); Basophils % (Auto) 0 % (0-2.5); Eosinophils # (Auto) 0.0 Thou/mm3 (0.0-0.5); Eosinophils % (Auto) 0 % (0-10); Hematocrit 45.9 % (36.0-46.0); Hemoglobin 14.8 g/dL (12.0-16.0); Immature Granulocytes Auto 0.03 Thou/mm3 (0.00-0.00); Lymphocytes # (Auto) 2.2 Thou/mm3 (1.0-4.8); Lymphocytes % (Auto) 18 % (10-50); Mean Corpuscular HGB Conc 32.2 g/dl (31.0-37.0); Mean Corpuscular Hemoglobin 27.5 pg (25.0-35.0); Mean Corpuscular Volume 85 fL (80-100); Monocytes # (Auto) 1.3 Thou/mm3 (0.0-0.8); Monocytes % (Auto) 11 % (0-12); Neutrophils # (Auto) 8.3 Thou/mm3 (1.8-7.7); Neutrophils % (Auto) 70 % (37-80); Nucleated Red Blood Cell # 0.00 Thou/mm3 (0.00-0.00); Nucleated Red Blood Cell % 0 /100 WBC (0); Platelet Count 288 Thou/mm3 (140-440); RDW Standard Deviation 49.2 fL (36.4-46.3); Red Blood Count 5.38 Miln/mm3 (4.00-5.20); White Blood Count 11.8 Thou/mm3 (3.6-11.0)
[2024-11-24 06:56] LABS: Alanine Aminotransferase 16 U/L (10-49); Albumin, Serum 4.0 gm/dL (3.4-4.8); Albumin/Globulin Ratio 1.2 (1.2-2.2); Alkaline Phosphatase 90 U/L (46-116); Anion Gap 6 (7-16); Aspartate Amino Transferase 20 U/L (0-34); BUN/Creatinine Ratio 21 Ratio (12-20); Bilirubin,Total 0.5 mg/dL (0.3-1.2); Blood Urea Nitrogen 17 mg/dL (9-23); Calcium 8.9 mg/dL (8.3-10.6); Calcium (Corrected) 8.9 mg/dL (8.5-10.1); Carbon Dioxide 32.2 mMol/L (20.0-31.0); Chloride 99 mMol/L (98-107); Creatinine (Component) 0.8 mg/dL (0.6-1.3); Estimated Creatinine Clearance 59.1 mL/min (>60); Globulin 3.3 gm/dL (2.3-3.5); Glucose 107 mg/dL (74-106); Magnesium 2.0 mg/dL (1.6-2.6); Osmolality,Calculated 275 (275-295); Phosphorous 3.6 mg/dL (2.4-5.1); Potassium 3.8 mMol/L (3.4-5.1); Sodium 137 mMol/L (136-145); Total Protein 7.3 gm/dL (5.7-8.2); eGFR > 60 See Note
--- NOTE | 2024-11-24 07:46 | ESPR_ITS ---
<Statement entered by Genesis Helton MD - 11/27/24 09:12> I reviewed above note and agree with findings and plans. I have also personally examined the patient with medicine team and went over assessment and plan with medical team including hr internship and resident physician. <Statement entered by Jovita Sams MD - 11/24/24 17:56> Patient was seen and examined at bedside. I agree on the assessment and plan on this note as documented by resident Samantha Diaz PGY1. Patient seen examined at bedside, significant improvement noted, pending echocardiogram. Is net -2.3 L for hospitalization, will continue with IV diuresis. Will continue with COPD management on antibiotics, steroids and breathing treatments. Pending neurology recommendations for CVA currently on aspirin daily, considering patient will need to be resumed on Eliquis, however there is concern of failure on DOAC, possibility of discharging on warfarin. Continue ceftriaxone and azithromycin to complete treatment of pneumonia. Will keep potassium more than 4 and magnesium more than 2 respectively considering underlying atrial fibrillation, continue amiodarone. Continue [place], bladder training. Case discussed with attending Dr. Sunitha Sams MD PGY-2 Documentation for date of: 11/24/24 Subjective Subjective Interval history: A 74-year-old female pmhx significant for history of breast cancer, COPD, HTN, PAD, CAD s/p drug eluting stent x2, and atrial fibrillation on Eliquis presented to [facility] ED on 11/22 with R sided weakness and shortness of breath admitted for ischemic CVA, COPD exacerbation and CAP No acute events overnight patient had good urine output. Vitals were stable. Today patient was seen examined at the bedside. She continues to endorse intermittent headache and mild nausea. She reports mild improvement of shortness of breath. Saturating well on 2 L nasal cannula. Per neuro recommendation, still holding anticoagulation due to risk of hemorrhagic conversion. Exam Vital Signs Temp Pulse Resp BP Pulse Ox O2 Del Method O2 Flow Rate 97.0 F 114 H 16 100/61 100 Nasal Cannula 2 11/24/24 04:00 11/24/24 06:48 11/24/24 06:48 11/24/24 04:00 11/24/24 06:48 11/24/24 04:00 11/24/24 06:48 Narrative Exam Physical Exam General: Awake and in no acute distress. Conversational and non-toxic appearing. HEENT: Normocephalic, atraumatic, mucous membranes moist. Heart: Irregular and tachycardic, normal S1 and S2, no murmurs. Lungs: Bilateral diminished breath sounds most prominent at the bases, plus bilateral inspiratory wheezes Abdomen: Soft, nondistended, nontender, positive bowel sounds. ?No guarding or rebound tenderness. Neurologic: Alert and oriented x3, no gross neurological deficit, and patient able to move all 4 extremities. Muscle strength right side UE and LE is 3/5 Extremities: No edema. BLE tender to palpation most at medial lower legs Skin: No rash or ecchymoses. Objective Labs 11/24/24 06:10 11/24/24 06:10 Labs: Laboratory Results - last 24 hr 11/23/24 11/24/24 09:29 06:10 WBC 11.8 H RBC 5.38 H Hgb 14.8 Hct 45.9 MCV 85 MCH 27.5 MCHC 32.2 RDW Std Deviation 49.2 H Plt Count 288 D Neut % (Auto) 70 Lymph % (Auto) 18 [place] % (Auto) 11 Eos % (Auto) 0 Baso % (Auto) 0 Neut # (Auto) 8.3 H Lymph # (Auto) 2.2 [place] # (Auto) 1.3 H Eos # (Auto) 0.0 Baso # (Auto) 0.0 Immature Gran # (Auto) 0.03 H Absolute Nucleated RBC 0.00 Immature Gran % 0 Nucleated RBC % 0 Sodium 140 137 Potassium 3.7 3.8 Chloride 100 99 Carbon Dioxide 29.8 32.2 H Anion Gap 10 6 L BUN 19 17 Creatinine 0.9 0.8 Estim Creat Clear Calc 52.5 L 59.1 L eGFR > 60 > 60 BUN/Creatinine Ratio 21 H 21 H Glucose 130 H 107 H Calculated Osmolality 283 275 Calcium 9.0 8.9 Corrected Calcium 9.0 8.9 Phosphorus 4.9 3.6 Magnesium 2.3 2.0 Total Bilirubin 0.6 0.5 AST 21 20 ALT 13 16 Alkaline Phosphatase 90 90 Total Protein 7.5 7.3 Albumin 4.0 4.0 Globulin 3.5 3.3 Albumin/Globulin Ratio 1.1 L 1.2 Triglycerides 68 Cholesterol 145 LDL Cholesterol, Calc 86 HDL Cholesterol 45 Cholesterol/HDL Ratio 3.2 L TSH 1.03 Free T4 1.64 Quality Measures Quality Measures none Advance care planning discussed with:: patient Assessment & Plan Assessment Current Active Medications: Generic Name Dose Route Start Last Admin Trade Name Freq PRN Reason Stop Dose Admin Acetaminophen 650 mg 11/22/24 14:14 11/24/24 03:11 Acetaminophen 325 Mg Tablet PO 12/22/24 14:13 650 mg Q6H PRN Administration Pain (1-3) & Fever >100.4 Albuterol/Ipratropium 3 ml 11/22/24 15:00 11/24/24 06:47 Albuterol/Ipratropium (Duoneb) Rt Eladia 3 Ml Nebu INH 12/22/24 14:59 3 ml Q4HRRT AMANDO Administration Albuterol/Ipratropium 3 ml 11/22/24 14:14 Albuterol/Ipratropium (Duoneb) Rt Eladia 3 Ml Nebu INH 12/22/24 14:13 Q2HR PRN SHORTNESS OF BREATH OR WHEEZE Amiodarone HCl 200 mg 11/22/24 14:30 11/23/24 09:17 Amiodarone Hcl 200 Mg Tablet PO 12/22/24 14:29 200 mg QDAY AMANDO Administration Apixaban 5 mg 11/22/24 15:00 11/22/24 15:01 Apixaban 2.5 Mg Tablet PO 12/22/24 14:59 5 mg BID AMANDO Administration Aspirin 81 mg 11/23/24 09:00 11/23/24 09:18 Aspirin Ec 81 Mg Tabec PO 12/23/24 08:59 81 mg QDAY AMANDO Administration Atorvastatin Calcium 80 mg 11/22/24 21:00 11/23/24 20:08 Atorvastatin Calcium 20 Mg Tablet PO 12/22/24 20:59 80 mg HS AMANDO Administration Furosemide 40 mg 11/23/24 09:00 11/23/24 09:18 Furosemide Inj 10 Mg/Ml 4ml Vial IVP 12/23/24 08:59 40 mg QDAY AMANDO Administration Ceftriaxone Sodium/Dextrose 1 gm in 50 mls @ 100 mls/hr 11/23/24 09:00 11/23/24 20:21 Rocephin/D5w 1gm Iv Premix IV 11/30/24 08:59 Infused QDAY AMANDO Infusion Azithromycin 500 mg/ Sodium 250 mls @ 250 mls/hr 11/23/24 09:00 11/23/24 20:21 Chloride IV 11/30/24 08:59 Infused QDAY AMANDO Infusion Methylprednisolone Sodium Succinate 40 mg 11/22/24 14:30 11/23/24 09:15 Methylprednisolone Sod Succ 40 Mg Vial IVP 11/29/24 14:29 40 mg QDAY AMANDO Administration Ondansetron HCl 4 mg 11/22/24 14:14 Ondansetron Inj 2 Mg/Ml Inj 2 Ml IVP 12/22/24 14:13 Q6H PRN NAUSEA OR VOMITING Protocol Pantoprazole Sodium 40 mg 11/23/24 09:00 11/23/24 09:18 Pantoprazole Inj 40 Mg Vial IVP 12/23/24 08:59 40 mg QDAY AMANDO Administration Sennosides 1 tab 11/23/24 09:00 11/23/24 09:18 Senna Tablet PO 12/23/24 08:59 1 tab QDAY AMANDO Administration Protocol Tramadol HCl 50 mg 11/22/24 14:14 11/24/24 06:12 Tramadol Hcl 50 Mg Tablet PO 11/27/24 14:13 50 mg Q8HR PRN Administration PAIN SCALE 4-10(Mod-Sev Plan A 74-year-old female pmhx significant for history of breast cancer, COPD, HTN, PAD, CAD s/p drug-eluting stents x 2, and atrial fibrillation on Eliquis presented to [facility] ED on 11/22 with R sided weakness and shortness of breath admitted for ischemic CVA, COPD exacerbation and CAP #Acute ischemic multifocal L hemispheric CVAs likely 2/2 #Atrial fibrillation, persistent, rate controlled #CAD s/p drug eluting stent x2 #Nonoccuding DVT in mid L superficial femoral vein #PAD #HTN Patient presented with slurred speech, strength 3/5 in right upper and lower extremities; mild tremor on upper extremities R>L. R sided strength improving. CT was negative for acute hemorrhage, mass effect or midline shift. MRI showed multiple embolic type acute infarcts in the left temporal lobe, left parietal lobe, left basal ganglia, left occipital lobe, left frontal lobe. Lower left extremity ultrasound shows nonocclusive thrombus in the mid left superficial femoral vein. HbA1c 5.8, lipid panel LDL 86, trig, cholesterol and HDL wnl CHADsVASc score 8, HASBLED 4 Plan: - Pending echo - Neurology consulted, appreciate recs: Hold anticoagulation for now, started on aspirin 81 mg daily, if patient remains stable expect to resume anticoagulation in 3 days - Hold Eliquis 5 mg p.o. twice daily - Continue ASA 81 mg QD and - Continue atorvastatin 80 mg qhs - Continue amiodoarone 200 mg QD - Continue neurochecks q4h - Follow-up with PT - Keep K>4 and Mg>2 - Hold home HTN meds for now #Acute hypoxic respiratory failure 2/2 #COPD exacerbation #CAP #Acute decompensated heart failure #HFpEF EF 50-55% Patient has a history of COPD taking home fluticasone propionate salmeterol. CT chest showed extensive pneumonia and volume loss left lung. Abrupt termination of left mainstem bronchus, COPD, 8 mm pulmonary nodule upper right lobe, significant extrahepatic biliary tract dilatation 2023 Echo showed EF 50 to 55%. Mild MR, TR. PSI/port is class IV, patient require follow-up pneumonia management. Plan: - Pending sputum culture - DuoNeb q4h - IV methylprednisolone 40 mg QD - Keep O2 saturation >88 - Azithromycin and ceftriaxone (11/22/- - Blood culture no growth after 48 hours-continue to monitor - IV Lasix 40 mg QD - Strict I&O, - daily weights - 1.5 L fluid restriction #Bladder retention Patient reports bladder retention and urge. Bladder scan 11/23 1L. Plan: - Bladder scans q4h, straight cath if >350 mL # Nicotine Dependence Plan: - Smoking Cessation Counselling - Consider nicotine patch Hospital management: Lines: peripheral IV Diet: dysphagia 2-mechanically altered Bowel: Senna GI prophylaxis: IV pantoprazole 40 mg QD DVT prophylaxis: SCDs if tolerated Disposition: tele for CVA workup, abx and duoneb tx CODE STATUS: Full code Patient seen and assessed under supervision of attending physician Dr. Helton and discuss with senior resident Dr. Sams PGY-2 Samantha Diaz MD PGY-1, Internal Medicine
[2024-11-24] MEDS: FUROSEMIDE INJ 10 MG/ML 4ML VIAL 40 MG IVP (10:02)
[2024-11-24] MEDS: cefTRIAXone/D5w 1gm IV premix 1 GM/50 ML BAG IV (10:03)
[2024-11-24] MEDS: AMIODARONE HCL 200 MG TABLET PO (10:04)
[2024-11-24] MEDS: ASPIRIN EC 81 MG TABEC PO (10:04)
[2024-11-24] MEDS: Magnesium Sulfate 2 GM Ivpb 2 GM/50 ML BAG IV (10:05)
[2024-11-24] MEDS: AZITHROMYCIN INJ 500 MG in SODIUM CHLORIDE 0.9% 250 ML 250 ML 250 MG IV (10:07)
[2024-11-24] MEDS: POTASSIUM CHLORIDE 10% 20 MEQ/15 ML UDC 40 MEQ PO (10:32)
[2024-11-24] MEDS: ONDANSETRON INJ 2 MG/ML INJ 2 ML 4 MG IVP (10:51)
--- NOTE | 2024-11-24 14:59 | PC.SS ---
Rounding note: patient receiving IV antibiotics, IV steroids
--- NOTE | 2024-11-24 17:50 | ESPR_ITS ---
Documentation for date of: 11/24/24 Subjective Subjective Interval history: Patient is a 74 year old female with a past medical history of hypertension, hyperlipidemia, CAD s/p PCI stents, PAD, Atrial Fibrillation on Eliquis, COPD, Stage III left breast (06/01/2010), Acitve smoker about 59 pack years (since age 15) who presented on 11/22/2024 with chief complain of SOB and right sided lower extremity weakness with aphasia. Patient admitted for acute hypoxic respiratory failure and right lower extremity weakness. Patinet examined at bedside. Patient stated on admission had a chief complain of shortness of breath and right sided lower extremity weakness with aphasia. Patient since then improved no dysarthria noted. Patient continues to smoke, since age 15. Patient is open to nictoine patch. Patient counseled on increased risk of strokes with smoking history, Atrial fibrillatin, and CAD. Patient lives at home with friends and uses a walker at baseline. PT recommended SNF palcement-->would like to return home. Continue Aspirin 81 mg qday, Atorvastatin 80 mg HS, and Eliquis 5 mg PO BID. Exam Vital Signs Temp Pulse Resp BP Pulse Ox O2 Del Method O2 Flow Rate 96.9 F 117 H 18 109/82 94 L Nasal Cannula 2 11/24/24 16:00 11/24/24 16:11/24/24 16:11/24/24 16:11/24/24 16:11/24/24 16:11/24/24 16:00 Narrative Exam General Appearance: Alert & Oriented X3, well-nourished female who is lying in bed in no acute distress HEENT: Skull symmetrical and atraumatic. Conjunctivae pink and moist. Pupils equal, round, reactive to light and accommodation (PERRL). External ear without lesion or discharge. Straight, nares patient, mucosa pink, no discharge. Cardio: Normal Rate and Rhythm with S1 and S2 heart sounds. No murmurs or extra heart sounds auscultated. No bruits on carotid auscultation. No peripheral edema or cyanosis. Lungs: Symmetric with good expansion. Chest and back non-tender. Breath sounds vesicular without crackles, wheezing or rhonchi Abdomen: Non-tender, Non-distended, Normal Reactive Bowel Sounds Neuro: Yes Alert, Yes cooperative, Yes oriented to person, Yes place, and yes time. Speech clear. CN grossly intact. Upper motor strength 5/5 and Lower motor strength 5/5. Sensation intact. Objective Labs 11/25/24 04:55 11/25/24 04:55 Labs: Laboratory Results - last 24 hr 11/24/24 06:10 WBC 11.8 H RBC 5.38 H Hgb 14.8 Hct 45.9 MCV 85 MCH 27.5 MCHC 32.2 RDW Std Deviation 49.2 H Plt Count 288 D Neut % (Auto) 70 Lymph % (Auto) 18 [place] % (Auto) 11 Eos % (Auto) 0 Baso % (Auto) 0 Neut # (Auto) 8.3 H Lymph # (Auto) 2.2 [place] # (Auto) 1.3 H Eos # (Auto) 0.0 Baso # (Auto) 0.0 Immature Gran # (Auto) 0.03 H Absolute Nucleated RBC 0.00 Immature Gran % 0 Nucleated RBC % 0 Sodium 137 Potassium 3.8 Chloride 99 Carbon Dioxide 32.2 H Anion Gap 6 L BUN 17 Creatinine 0.8 Estim Creat Clear Calc 59.1 L eGFR > 60 BUN/Creatinine Ratio 21 H Glucose 107 H Calculated Osmolality 275 Calcium 8.9 Corrected Calcium 8.9 Phosphorus 3.6 Magnesium 2.0 Total Bilirubin 0.5 AST 20 ALT 16 Alkaline Phosphatase 90 Total Protein 7.3 Albumin 4.0 Globulin 3.3 Albumin/Globulin Ratio 1.2 Quality Measures Quality Measures none Advance care planning discussed with:: patient Assessment & Plan Assessment Current Active Medications: Generic Name Dose Route Start Last Admin Trade Name Freq PRN Reason Stop Dose Admin Acetaminophen 650 mg 11/22/24 14:14 11/24/24 10:52 Acetaminophen 325 Mg Tablet PO 12/22/24 14:13 650 mg Q6H PRN Administration Pain (1-3) & Fever >100.4 Albuterol/Ipratropium 3 ml 11/22/24 15:00 11/24/24 14:30 Albuterol/Ipratropium (Duoneb) Rt Eladia 3 Ml Nebu INH 12/22/24 14:59 3 ml Q4HRRT AMANDO Administration Albuterol/Ipratropium 3 ml 11/22/24 14:14 Albuterol/Ipratropium (Duoneb) Rt Eladia 3 Ml Nebu INH 12/22/24 14:13 Q2HR PRN SHORTNESS OF BREATH OR WHEEZE Amiodarone HCl 200 mg 11/22/24 14:30 11/24/24 10:04 Amiodarone Hcl 200 Mg Tablet PO 12/22/24 14:29 200 mg QDAY AMANDO Administration Apixaban 5 mg 11/22/24 15:00 11/22/24 15:01 Apixaban 2.5 Mg Tablet PO 12/22/24 14:59 5 mg BID AMANDO Administration Aspirin 81 mg 11/23/24 09:00 11/24/24 10:04 Aspirin Ec 81 Mg Tabec PO 12/23/24 08:59 81 mg QDAY AMANDO Administration Atorvastatin Calcium 80 mg 11/22/24 21:00 11/23/24 20:08 Atorvastatin Calcium 20 Mg Tablet PO 12/22/24 20:59 80 mg HS AMANDO Administration Azithromycin 500 mg 11/25/24 09:00 Azithromycin 250 Mg Tablet PO 11/26/24 09:01 QDAY AMANDO Protocol Furosemide 40 mg 11/23/24 09:00 11/24/24 10:02 Furosemide Inj 10 Mg/Ml 4ml Vial IVP 12/23/24 08:59 40 mg QDAY AMANDO Administration Ceftriaxone Sodium/Dextrose 1 gm in 50 mls @ 100 mls/hr 11/23/24 09:00 11/24/24 10:03 Rocephin/D5w 1gm Iv Premix IV 11/30/24 08:59 100 mls/hr QDAY AMANDO Administration Methylprednisolone Sodium Succinate 40 mg 11/22/24 14:30 11/24/24 10:02 Methylprednisolone Sod Succ 40 Mg Vial IVP 11/29/24 14:29 40 mg QDAY AMANDO Administration Ondansetron HCl 4 mg 11/22/24 14:14 11/24/24 10:51 Ondansetron Inj 2 Mg/Ml Inj 2 Ml IVP 12/22/24 14:13 4 mg Q6H PRN Administration NAUSEA OR VOMITING Protocol Pantoprazole Sodium 40 mg 11/25/24 09:00 Pantoprazole 40 Mg Tablet PO 12/25/24 08:59 QDAY AMANDO Protocol Sennosides 1 tab 11/23/24 09:00 11/24/24 10:04 Senna Tablet PO 12/23/24 08:59 1 tab QDAY AMANDO Administration Protocol Tramadol HCl 50 mg 11/22/24 14:14 11/24/24 17:07 Tramadol Hcl 50 Mg Tablet PO 11/27/24 14:13 50 mg Q8HR PRN Administration PAIN SCALE 4-10(Mod-Sev Plan Patient is a 74 year old female with a past medical history of hypertension, hyperlipidemia, CAD s/p PCI stents, PAD, Atrial Fibrillation on Eliquis, COPD, Stage III left breast (06/01/2010), Acitve smoker about 59 pack years (since age 15) who presented on 11/22/2024 with chief complain of SOB and right sided lower extremity weakness with aphasia. Patient admitte for acute hypoxic respiratory failure and right lower extremity weakness. #Acute Ischemic Stroke, embolic #Emoblic type infarct left temporal lobe, left parietal lobe, left basal ganglia, left occipital lobe, and left front lobe Patient presented with right lower extremtiy weakness of complain of dysarthria that was witness by patient's roommates shorlty after retrieving mail from mailbox. Patient not given TPA given. Given embolic like stroke likely secondary to history of atrial fibrillation. CTA Head/Neck (11/21/2024): NO neck arterial stenosis MRI : Multiple Embolic type acute infarcts US Venous: nonocclusive thrombus in the mid left superficial femoral vein Plan -Resume Eliquis 5 mg PO BID -Continue Atorvastatin and Asprin -Head of the bed at 30, aspiration precautions -Replace electrolytes as needed. -PT and speech following #Acute hypoxic Respiratory Failure #COPD exacerbation #CAP #Lukeocytosis #Acute on Chronic CHF #HFpEF 50-55% #Nicotine Depdendent #Active Smoker - The patient's plan was discussed with attending Dr. Michael Lemos MD PGY2 Internal Medicine Attending Provider Attestation/Addendum I personally have seen and examined the patient at the bedside and I agreed with resident's findings, assessment and plan of care. impression: acute CVA sec. to atrial fib no focal neurological deficit. Could be dc home on Eliquis, ASA 81 mg and statin
[2024-11-24] MEDS: ATORVASTATIN CALCIUM 20 MG TABLET 80 MG PO (20:20)
--- NOTE | 2024-11-24 20:33 | PC.NURSE ---
Dr. Rodriguez arrived on unit to follow up with patient.
[2024-11-24] MEDS: NICOTINE PATCH 21 MG/24 HR PATCH.TD24 TOP (21:21)
[2024-11-24] MEDS: APIXABAN 2.5 MG TABLET 5 MG PO (21:22)
[2024-11-25] VITALS (13 sets, daily range): BP systolic 87–116; BP diastolic 59–89; PULSE 98–125; RESP 18–21; TEMP 36.1–36.4; O2SAT 93–99; BMI 23.1
[2024-11-25] MEDS: ALBUTEROL/IPRATROPIUM (Duoneb) RT SOL 3 ML NEBU INH ×5 (02:35→23:35)
[2024-11-25 06:39] LABS: Alanine Aminotransferase 14 U/L (10-49); Albumin, Serum 3.9 gm/dL (3.4-4.8); Albumin/Globulin Ratio 1.1 (1.2-2.2); Alkaline Phosphatase 87 U/L (46-116); Anion Gap 9 (7-16); Aspartate Amino Transferase 22 U/L (0-34); BUN/Creatinine Ratio 14 Ratio (12-20); Bilirubin,Total 0.5 mg/dL (0.3-1.2); Blood Urea Nitrogen 10 mg/dL (9-23); Calcium 8.9 mg/dL (8.3-10.6); Calcium (Corrected) 9.0 mg/dL (8.5-10.1); Carbon Dioxide 33.0 mMol/L (20.0-31.0); Chloride 96 mMol/L (98-107); Creatinine (Component) 0.7 mg/dL (0.6-1.3); Estimated Creatinine Clearance 67.5 mL/min (>60); Globulin 3.4 gm/dL (2.3-3.5); Glucose 97 mg/dL (74-106); Magnesium 2.5 mg/dL (1.6-2.6); Osmolality,Calculated 274 (275-295); Phosphorous 3.3 mg/dL (2.4-5.1); Potassium 4.8 mMol/L (3.4-5.1); Sodium 138 mMol/L (136-145); Total Protein 7.3 gm/dL (5.7-8.2); eGFR > 60 See Note
[2024-11-25 06:45] LABS: Basophils # (Auto) 0.0 Thou/mm3 (0.0-0.2); Basophils % (Auto) 0 % (0-2.5); Eosinophils # (Auto) 0.0 Thou/mm3 (0.0-0.5); Eosinophils % (Auto) 0 % (0-10); Hematocrit 48.7 % (36.0-46.0); Hemoglobin 15.6 g/dL (12.0-16.0); Immature Granulocytes Auto 0.04 Thou/mm3 (0.00-0.00); Lymphocytes # (Auto) 2.1 Thou/mm3 (1.0-4.8); Lymphocytes % (Auto) 20 % (10-50); Mean Corpuscular HGB Conc 32.0 g/dl (31.0-37.0); Mean Corpuscular Hemoglobin 28.0 pg (25.0-35.0); Mean Corpuscular Volume 87 fL (80-100); Monocytes # (Auto) 1.3 Thou/mm3 (0.0-0.8); Monocytes % (Auto) 12 % (0-12); Neutrophils # (Auto) 7.1 Thou/mm3 (1.8-7.7); Neutrophils % (Auto) 67 % (37-80); Nucleated Red Blood Cell # 0.00 Thou/mm3 (0.00-0.00); Nucleated Red Blood Cell % 0 /100 WBC (0); Platelet Count 299 Thou/mm3 (140-440); RDW Standard Deviation 51.4 fL (36.4-46.3); Red Blood Count 5.58 Miln/mm3 (4.00-5.20); White Blood Count 10.5 Thou/mm3 (3.6-11.0)
--- NOTE | 2024-11-25 09:01 | PC.SS ---
Update: Echo procedure is pending. Possible d/c home today.
[2024-11-25] MEDS: NICOTINE PATCH 21 MG/24 HR PATCH.TD24 TOP (09:50)
[2024-11-25] MEDS: cefTRIAXone/D5w 1gm IV premix 1 GM/50 ML BAG IV (09:50)
[2024-11-25] MEDS: FUROSEMIDE INJ 10 MG/ML 4ML VIAL 40 MG IVP (09:50)
[2024-11-25] MEDS: GLYCERIN, ADULT 1 EA SUPP 1 EACH PR (09:51)
[2024-11-25] MEDS: AMIODARONE HCL 200 MG TABLET PO (09:51)
[2024-11-25] MEDS: ASPIRIN EC 81 MG TABEC PO (09:51)
[2024-11-25] MEDS: AZITHROMYCIN 250 MG TABLET 500 MG PO (09:51)
[2024-11-25] MEDS: PANTOPRAZOLE 40 MG TABLET PO (09:51)
[2024-11-25] MEDS: APIXABAN 2.5 MG TABLET 5 MG PO ×2 (09:52→20:55)
[2024-11-25] MEDS: ACETAMINOPHEN 325 MG TABLET 650 MG PO (11:24)
--- NOTE | 2024-11-25 13:26 | ESPR_ITS ---
<Statement entered by Genesis Helton MD - 12/08/24 07:42> I reviewed above note and agree with findings and plans. I have also personally examined the patient with medicine team and went over assessment and plan with medical team including international freight forwarder and resident physician. <Statement entered by Jovita Sams MD - 11/26/24 05:06> Patient was seen and examined at bedside. I agree on the assessment and plan on this note as documented by resident Samantha Diaz PGY1. 74-year-old female with past medical history as below, was admitted for CVA workup, COPD exacerbation, CHF exacerbation and community-acquired pneumonia management. On MRI patient noted to have acute ischemic multifocal left hemispheric CVAs, patient not noted to have any new deficits on physical exam grossly, neurology is following, patient is pending echocardiogram with bubble study. Patient's anticoagulation was resumed per neurology recommendations, otherwise patient's respiratory symptoms have improved remarkably for the hospitalization, will continue current management. Patient advised to stop smoking, will prescribe nicotine patches. Disposition telemetry, pending echocardiogram. Case discussed with attending Dr. Helton. Jovita Sams MD PGY-2 Documentation for date of: 11/25/24 Subjective Subjective Interval history: A 74-year-old female pmhx significant for history of breast cancer, COPD, HTN, PAD, CAD s/p drug eluting stent x2, and atrial fibrillation on Eliquis presented to [facility] ED on 11/22 with R sided weakness and shortness of breath admitted for ischemic CVA, COPD exacerbation and CAP. No acute event overnight, patient slept through the night with no pain. The patient was seen and examined at the bedside with no acute complaint. Patient shortness of breath is improving significantly saturating well on 2 L nasal cannula. Per neuro recommendation will resume home meds Eliquis. Patient BP repeat was on the soft side 87/67. Will hold Lasix and reevaluate tomorrow morning. Exam Vital Signs Temp Pulse Resp BP Pulse Ox O2 Del Method O2 Flow Rate 97.3 F 110 H 18 87/67 L 93 L Nasal Cannula 2 11/25/24 12:00 11/25/24 12:00 11/25/24 12:00 11/25/24 12:00 11/25/24 12:00 11/25/24 12:11/25/24 12:00 Narrative Exam Physical Exam General: Awake and in no acute distress. Conversational and non-toxic appearing. HEENT: Normocephalic, atraumatic, mucous membranes moist. Heart: regular, rhytm and regular , normal S1 and S2, no murmurs. Lungs: Bilateral diminished breath sounds most prominent at the bases, plus bilateral inspiratory wheezes (improving) Abdomen: Soft, nondistended, nontender, positive bowel sounds. ?No guarding or rebound tenderness. Neurologic: Alert and oriented x3, no gross neurological deficit, and patient able to move all 4 extremities. Muscle strength right side UE and LE is 4/5 (improving) Extremities: No edema. BLE tender to palpation most at medial lower leg- resolve Skin: No rash or ecchymoses. Objective Labs 11/25/24 04:55 11/25/24 04:55 Labs: Laboratory Results - last 24 hr 11/25/24 04:55 WBC 10.5 RBC 5.58 H Hgb 15.6 Hct 48.7 H MCV 87 MCH 28.0 MCHC 32.0 RDW Std Deviation 51.4 H Plt Count 299 Neut % (Auto) 67 Lymph % (Auto) 20 [place] % (Auto) 12 Eos % (Auto) 0 Baso % (Auto) 0 Neut # (Auto) 7.1 Lymph # (Auto) 2.1 [place] # (Auto) 1.3 H Eos # (Auto) 0.0 Baso # (Auto) 0.0 Immature Gran # (Auto) 0.04 H Absolute Nucleated RBC 0.00 Immature Gran % 0 Nucleated RBC % 0 Sodium 138 Potassium 4.8 D Chloride 96 L Carbon Dioxide 33.0 H Anion Gap 9 BUN 10 Creatinine 0.7 Estim Creat Clear Calc 67.5 eGFR > 60 BUN/Creatinine Ratio 14 Glucose 97 Calculated Osmolality 274 L Calcium 8.9 Corrected Calcium 9.0 Phosphorus 3.3 Magnesium 2.5 Total Bilirubin 0.5 AST 22 ALT 14 Alkaline Phosphatase 87 Total Protein 7.3 Albumin 3.9 Globulin 3.4 Albumin/Globulin Ratio 1.1 L Quality Measures Quality Measures none Advance care planning discussed with:: patient Assessment & Plan Assessment Current Active Medications: Generic Name Dose Route Start Last Admin Trade Name Freq PRN Reason Stop Dose Admin Acetaminophen 650 mg 11/22/24 14:14 11/25/24 11:24 Acetaminophen 325 Mg Tablet PO 12/22/24 14:13 650 mg Q6H PRN Administration Pain (1-3) & Fever >100.4 Albuterol/Ipratropium 3 ml 11/22/24 15:00 11/25/24 11:10 Albuterol/Ipratropium (Duoneb) Rt Eladia 3 Ml Nebu INH 12/22/24 14:59 3 ml Q4HRRT AMANDO Administration Albuterol/Ipratropium 3 ml 11/22/24 14:14 Albuterol/Ipratropium (Duoneb) Rt Eladia 3 Ml Nebu INH 12/22/24 14:13 Q2HR PRN SHORTNESS OF BREATH OR WHEEZE Amiodarone HCl 200 mg 11/22/24 14:30 11/25/24 09:51 Amiodarone Hcl 200 Mg Tablet PO 12/22/24 14:29 200 mg QDAY AMANDO Administration Apixaban 5 mg 11/24/24 21:00 11/25/24 09:52 Apixaban 2.5 Mg Tablet PO 12/24/24 20:59 5 mg BID AMANDO Administration Aspirin 81 mg 11/23/24 09:00 11/25/24 09:51 Aspirin Ec 81 Mg Tabec PO 12/23/24 08:59 81 mg QDAY AMANDO Administration Atorvastatin Calcium 40 mg 11/25/24 21:00 Atorvastatin Calcium 20 Mg Tablet PO 12/25/24 20:59 HS AMANDO Azithromycin 500 mg 11/25/24 09:00 11/25/24 09:51 Azithromycin 250 Mg Tablet PO 11/26/24 09:01 500 mg QDAY AMANDO Administration Protocol Furosemide 40 mg 11/23/24 09:00 11/25/24 09:50 Furosemide Inj 10 Mg/Ml 4ml Vial IVP 12/23/24 08:59 40 mg QDAY AMANDO Administration Ceftriaxone Sodium/Dextrose 1 gm in 50 mls @ 100 mls/hr 11/23/24 09:00 11/25/24 09:50 Rocephin/D5w 1gm Iv Premix IV 11/30/24 08:59 100 mls/hr QDAY AMANDO Administration Methylprednisolone Sodium Succinate 40 mg 11/22/24 14:30 11/25/24 09:50 Methylprednisolone Sod Succ 40 Mg Vial IVP 11/29/24 14:29 40 mg QDAY AMANDO Administration Nicotine 21 mg 11/24/24 21:00 11/25/24 09:50 Nicotine Patch 21 Mg/24 Hr Patch.Td24 TOP 12/24/24 20:59 21 mg QDAY AMANDO Administration Ondansetron HCl 4 mg 11/22/24 14:14 11/24/24 10:51 Ondansetron Inj 2 Mg/Ml Inj 2 Ml IVP 12/22/24 14:13 4 mg Q6H PRN Administration NAUSEA OR VOMITING Protocol Pantoprazole Sodium 40 mg 11/25/24 09:00 11/25/24 09:51 Pantoprazole 40 Mg Tablet PO 12/25/24 08:59 40 mg QDAY AMANDO Administration Protocol Sennosides 1 tab 11/23/24 09:00 11/25/24 09:51 Senna Tablet PO 12/23/24 08:59 1 tab QDAY AMANDO Administration Protocol Tramadol HCl 50 mg 11/22/24 14:14 11/25/24 03:10 Tramadol Hcl 50 Mg Tablet PO 11/27/24 14:13 50 mg Q8HR PRN Administration PAIN SCALE 4-10(Mod-Sev Plan A 74-year-old female pmhx significant for history of breast cancer, COPD, HTN, PAD, CAD s/p drug-eluting stents x 2, and atrial fibrillation on Eliquis presented to [facility] ED on 11/22 with R sided weakness and shortness of breath admitted for ischemic CVA, COPD exacerbation and CAP #Acute ischemic multifocal L hemispheric CVAs likely 2/2 #Atrial fibrillation, persistent, rate controlled #CAD s/p drug eluting stent x2 #Nonoccuding DVT in mid L superficial femoral vein # Primary HTN #PAD Patient presented with slurred speech, strength 3/5 in right upper and lower extremities; mild tremor on upper extremities R>L. R sided strength improving. CT was negative for acute hemorrhage, mass effect or midline shift. MRI showed multiple embolic type acute infarcts in the left temporal lobe, left parietal lobe, left basal ganglia, left occipital lobe, left frontal lobe. Lower left extremity ultrasound shows nonocclusive thrombus in the mid left superficial femoral vein. HbA1c 5.8, lipid panel LDL 86, trig, cholesterol and HDL wnl CHADsVASc score 8, HASBLED 4 Plan: - Pending echo - Neurology consulted, appreciate recs: Hold anticoagulation for now, started on aspirin 81 mg daily, if patient remains stable expect to resume anticoagulation in 3 days - resume Eliquis 5 mg p.o. twice daily - Continue ASA 81 mg QD and - Continue atorvastatin 80 mg qhs - Continue amiodoarone 200 mg QD - Continue neurochecks q4h - Follow-up with PT - Keep K>4 and Mg>2 - Hold home HTN meds for now #Acute hypoxic respiratory failure 2/2 #COPD exacerbation # Community-acquired pneumonia #Acute decompensated heart failure #HFpEF EF 50-55% Patient has a history of COPD taking home fluticasone propionate salmeterol. CT chest showed extensive pneumonia and volume loss left lung. Abrupt termination of left mainstem bronchus, COPD, 8 mm pulmonary nodule upper right lobe, significant extrahepatic biliary tract dilatation 2023 Echo showed EF 50 to 55%. Mild MR, TR. PSI/port is class IV, patient require follow-up pneumonia management. Plan: - Pending sputum culture - DuoNeb q4h - IV methylprednisolone 40 mg QD - Keep O2 saturation >88 - Azithromycin and ceftriaxone (11/22/- - Blood culture no growth after 48 hours-continue to monitor - IV Lasix 40 mg QD- held - Strict I&O, - daily weights - 1.5 L fluid restriction #Bladder retention Patient reports bladder retention and urge. Bladder scan 11/23 1L. Plan: - Bladder scans q4h, straight cath if >350 mL # Nicotine Dependence Plan: - Smoking Cessation Counselling - Consider nicotine patch Hospital management: Lines: peripheral IV Diet: dysphagia 2-mechanically altered Bowel: Senna GI prophylaxis: IV pantoprazole 40 mg QD DVT prophylaxis: SCDs if tolerated Disposition: tele for CVA workup, abx and duoneb tx CODE STATUS: Full code Patient seen and assessed under supervision of attending physician Dr. Helton and discuss with senior resident Dr. Sams PGY-2 Samantha Diaz MD PGY-1, Internal Medicine
--- NOTE | 2024-11-25 14:27 | PC.SS ---
Rounding Note: Echo planned for today. Plan is to d/c patient tomorrow.
--- NOTE | 2024-11-25 15:00 | PD.RESPRO ---
Documentation for date of: 11/25/24 Subjective Subjective Interval history: Patient is a 74 year old female with a past medical history of hypertension, hyperlipidemia, CAD s/p PCI stents, PAD, Atrial Fibrillation on Eliquis, COPD, Stage III left breast (06/01/2010), Acitve smoker about 59 pack years (since age 15) who presented on 11/22/2024 with chief complain of SOB and right sided lower extremity weakness with aphasia. Patient admitted for acute hypoxic respiratory failure and right lower extremity weakness. Patient examined at bedside this evening. Patient denied any pyrexia or acute changes overnight. Patient continues to deny any upper or lower extremity weakness. Per patient, speech pattern returned to baseline-denied dysarthria. Continue Aspirin, Atorvastatin, and Eliquis. Exam Vital Signs Temp Pulse Resp BP Pulse Ox O2 Del Method O2 Flow Rate 97.3 F 114 H 18 87/67 L 98 Nasal Cannula 2 11/25/24 12:00 11/25/24 14:41 11/25/24 14:41 11/25/24 12:00 11/25/24 14:41 11/25/24 12:00 11/25/24 14:41 Narrative Exam General Appearance: Alert & Oriented X3, well-nourished female who is lying in bed in no acute distress HEENT: Skull symmetrical and atraumatic. Conjunctivae pink and moist. Pupils equal, round, reactive to light and accommodation (PERRL). External ear without lesion or discharge. Straight, nares patient, mucosa pink, no discharge. Cardio: Normal Rate and Rhythm with S1 and S2 heart sounds. No murmurs or extra heart sounds auscultated. No bruits on carotid auscultation. No peripheral edema or cyanosis. Lungs: Symmetric with good expansion. Chest and back non-tender. Breath sounds vesicular without crackles, wheezing or rhonchi Abdomen: Non-tender, Non-distended, Normal Reactive Bowel Sounds Neuro: Yes Alert, Yes cooperative, Yes oriented to person, Yes place, and yes time. Speech clear. CN grossly intact. Upper motor strength 5/5 and Lower motor strength 5/5. Sensation intact. Objective Labs 11/25/24 04:55 11/25/24 04:55 Labs: Laboratory Results - last 24 hr 11/25/24 04:55 WBC 10.5 RBC 5.58 H Hgb 15.6 Hct 48.7 H MCV 87 MCH 28.0 MCHC 32.0 RDW Std Deviation 51.4 H Plt Count 299 Neut % (Auto) 67 Lymph % (Auto) 20 [place] % (Auto) 12 Eos % (Auto) 0 Baso % (Auto) 0 Neut # (Auto) 7.1 Lymph # (Auto) 2.1 [place] # (Auto) 1.3 H Eos # (Auto) 0.0 Baso # (Auto) 0.0 Immature Gran # (Auto) 0.04 H Absolute Nucleated RBC 0.00 Immature Gran % 0 Nucleated RBC % 0 Sodium 138 Potassium 4.8 D Chloride 96 L Carbon Dioxide 33.0 H Anion Gap 9 BUN 10 Creatinine 0.7 Estim Creat Clear Calc 67.5 eGFR > 60 BUN/Creatinine Ratio 14 Glucose 97 Calculated Osmolality 274 L Calcium 8.9 Corrected Calcium 9.0 Phosphorus 3.3 Magnesium 2.5 Total Bilirubin 0.5 AST 22 ALT 14 Alkaline Phosphatase 87 Total Protein 7.3 Albumin 3.9 Globulin 3.4 Albumin/Globulin Ratio 1.1 L Quality Measures Quality Measures none Advance care planning discussed with:: patient Assessment & Plan Assessment Current Active Medications: Generic Name Dose Route Start Last Admin Trade Name Freq PRN Reason Stop Dose Admin Acetaminophen 650 mg 11/22/24 14:14 11/25/24 11:24 Acetaminophen 325 Mg Tablet PO 12/22/24 14:13 650 mg Q6H PRN Administration Pain (1-3) & Fever >100.4 Albuterol/Ipratropium 3 ml 11/22/24 15:00 11/25/24 14:41 Albuterol/Ipratropium (Duoneb) Rt Eladia 3 Ml Nebu INH 12/22/24 14:59 Not Given Q4HRRT AMANDO Albuterol/Ipratropium 3 ml 11/22/24 14:14 Albuterol/Ipratropium (Duoneb) Rt Eladia 3 Ml Nebu INH 12/22/24 14:13 Q2HR PRN SHORTNESS OF BREATH OR WHEEZE Amiodarone HCl 200 mg 11/22/24 14:30 11/25/24 09:51 Amiodarone Hcl 200 Mg Tablet PO 12/22/24 14:29 200 mg QDAY AMANDO Administration Apixaban 5 mg 11/24/24 21:00 11/25/24 09:52 Apixaban 2.5 Mg Tablet PO 12/24/24 20:59 5 mg BID AMANDO Administration Aspirin 81 mg 11/23/24 09:00 11/25/24 09:51 Aspirin Ec 81 Mg Tabec PO 12/23/24 08:59 81 mg QDAY AMANDO Administration Atorvastatin Calcium 40 mg 11/25/24 21:00 Atorvastatin Calcium 20 Mg Tablet PO 12/25/24 20:59 HS AMANDO Azithromycin 500 mg 11/25/24 09:00 11/25/24 09:51 Azithromycin 250 Mg Tablet PO 11/26/24 09:01 500 mg QDAY AMANDO Administration Protocol Furosemide 40 mg 11/23/24 09:00 11/25/24 09:50 Furosemide Inj 10 Mg/Ml 4ml Vial IVP 12/23/24 08:59 40 mg QDAY AMANDO Administration Ceftriaxone Sodium/Dextrose 1 gm in 50 mls @ 100 mls/hr 11/23/24 09:00 11/25/24 09:50 Rocephin/D5w 1gm Iv Premix IV 11/30/24 08:59 100 mls/hr QDAY AMANDO Administration Methylprednisolone Sodium Succinate 40 mg 11/22/24 14:30 11/25/24 09:50 Methylprednisolone Sod Succ 40 Mg Vial IVP 11/29/24 14:29 40 mg QDAY AMANDO Administration Nicotine 21 mg 11/24/24 21:00 11/25/24 09:50 Nicotine Patch 21 Mg/24 Hr Patch.Td24 TOP 12/24/24 20:59 21 mg QDAY AMANDO Administration Ondansetron HCl 4 mg 11/22/24 14:14 11/24/24 10:51 Ondansetron Inj 2 Mg/Ml Inj 2 Ml IVP 12/22/24 14:13 4 mg Q6H PRN Administration NAUSEA OR VOMITING Protocol Pantoprazole Sodium 40 mg 11/25/24 09:00 11/25/24 09:51 Pantoprazole 40 Mg Tablet PO 12/25/24 08:59 40 mg QDAY AMANDO Administration Protocol Sennosides 1 tab 11/23/24 09:00 11/25/24 09:51 Senna Tablet PO 12/23/24 08:59 1 tab QDAY AMANDO Administration Protocol Tramadol HCl 50 mg 11/22/24 14:14 11/25/24 03:10 Tramadol Hcl 50 Mg Tablet PO 11/27/24 14:13 50 mg Q8HR PRN Administration PAIN SCALE 4-10(Mod-Sev Plan Patient is a 74 year old female with a past medical history of hypertension, hyperlipidemia, CAD s/p PCI stents, PAD, Atrial Fibrillation on Eliquis, COPD, Stage III left breast (06/01/2010), Acitve smoker about 59 pack years (since age 15) who presented on 11/22/2024 with chief complain of SOB and right sided lower extremity weakness with aphasia. Patient admitte for acute hypoxic respiratory failure and right lower extremity weakness. #Acute Ischemic Stroke, embolic #Emoblic type infarct left temporal lobe, left parietal lobe, left basal ganglia, left occipital lobe, and left front lobe Patient presented with right lower extremtiy weakness of complain of dysarthria that was witness by patient's roommates shorlty after retrieving mail from mailbox. Patient not given TPA given. Given embolic like stroke likely secondary to history of atrial fibrillation. CTA Head/Neck (11/21/2024): NO neck arterial stenosis MRI : Multiple Embolic type acute infarcts US Venous: nonocclusive thrombus in the mid left superficial femoral vein Plan -Eliquis 5 mg PO BID, Atorvastatin and Asprin -Head of the bed at 30, aspiration precautions -Replace electrolytes as needed. -PT and speech following #Acute hypoxic Respiratory Failure #COPD exacerbation #CAP #Lukeocytosis #Acute on Chronic CHF #HFpEF 50-55% #Nicotine Depdendent #Active Smoker - The patient's plan was discussed with attending Dr. Michael Lemos MD PGY2 Internal Medicine Attending Provider Attestation/Addendum I independently reviewed the patient's chart and I agreed with resident's findings, assessment and plan of care. impression: acute CVA sec. to atrial fib no focal neurological deficit. Could be dc home on Eliquis, ASA 81 mg and statin Smoking cessation discussed.
[2024-11-25] MEDS: ATORVASTATIN CALCIUM 20 MG TABLET 40 MG PO (20:56)
[2024-11-26] VITALS (15 sets, daily range): BP systolic 80–131; BP diastolic 55–82; PULSE 80–129; RESP 14–25; TEMP 36.1–36.3; O2SAT 94–100
[2024-11-26] MEDS: ALBUTEROL/IPRATROPIUM (Duoneb) RT SOL 3 ML NEBU INH ×5 (02:34→18:16)
--- NOTE | 2024-11-26 05:08 | ECHO_ITS ---
Transthoracic Echo Report Ht (in): 60 Wt (lb): 152 Exam Location: Echo Lab Status: Inpatient Fuel Verification Technician: Siena Zambrano Indications: Procedure Performed: BP: / HR: 100 MEASUREMENTS (Male / Female) Normal Values 2D ECHO LV Diastolic Diameter PLAX 4.3 cm 4.2 - 5.9 / 3.9 - 5.3 cm LV Systolic Diameter PLAX 3.4 cm IVS Diastolic Thickness 1.1 cm 0.6 - 1.0 / 0.6 - 0.9 cm LVPW Diastolic Thickness 1.4 cm 0.6 - 1.0 / 0.6 - 0.9 cm LV Relative Wall Thickness 0.6 LVOT Diameter 1.8 cm LV Ejection Fraction MOD BP 37.7 % >= 55 % LV Cardiac Index MOD BP 3979.2 cm?/min?m? LV Ejection Fraction MOD 4C 20.5 % LV Cardiac Index MOD 4C 2249.1 cm?/min?m? LV Ejection Fraction 4C AL 20.2 % LV Cardiac Index 4C AL 2295.1 cm?/min?m? LV Ejection Fraction MOD 2C 50.2 % LV Cardiac Index MOD 2C 4809.6 cm?/min?m? LV Ejection Fraction 2C AL 52.0 % LV Cardiac Index 2C AL 5192.9 cm?/min?m? LA Volume Index 99.3 cm?/m? 16 - 28 cm?/m? Ascending Aorta Diameter 3.1 cm M-MODE AV Cusp Separation MM 1.5 cm DOPPLER AV Peak Velocity 129.0 cm/s AV Peak Gradient 6.7 mmHg AV Mean Gradient 4.0 mmHg AV Velocity Time Integral 25.4 cm LVOT Peak Velocity 82.0 cm/s LVOT Peak Gradient 2.7 mmHg LVOT Velocity Time Integral 15.8 cm LVOT Cardiac Index 2318.6 cm?/min?m? AV Area Cont Eq vti 1.6 cm? AV Area Cont Eq pk 1.6 cm? MV Area PHT 4.8 cm? Mitral E Point Velocity 97.0 cm/s TR Peak Velocity 168.3 cm/s TR Peak Gradient 11.3 mmHg PV Peak Velocity 66.9 cm/s PV Peak Gradient 1.8 mmHg FINDINGS Left Ventricle Normal left ventricular size, wall thickness, systolic function with no obvious regional wall motion abnormalities. Normal left ventricular diastolic filling pattern for age. The ejection fraction is visually estimated at 45-50% Right Ventricle The right ventricle is Mildly enlarged. The estimated right ventricular systolic pressure, 20 mmHg. RAP 8 Left Atrium The left atrial cavity size is moderately increased. Right Atrium The right atrial cavity size is mildly increased. Atrial Septum No [id number] shunt demonstrated by agitated saline injection. Aorta The aorta is normal by two-dimensional, color flow and Doppler interrogation. Mitral Valve The mitral valve is normal by two-dimensional, color flow and Doppler interrogation. Mild mitral regurgitation. Aortic Valve There is no significant aortic valve regurgitation. Calcification with small vegetation like structure 5mm diameter on non coronary cusp. Tricuspid Valve The tricuspid valve is normal by two-dimensional, color flow and Doppler interrogation. There is mild tricuspid valve regurgitation. Pulmonic Valve Trace pulmonic valve regurgitation. Vessels The pulmonary artery appears normal. The inferior vena cava pulmonary and hepatic veins appear normal. Pericardium The pericardium is normal by two-dimensional imaging. There is no significant pericardial effusion. CONCLUSIONS Indication CVAworkup, with bubble study, chemo port Normal LV size with mild global hypokinesis Estimated EF 45-50% Aortic Calcification with small vegetation like structure 5mm diameter on non coronary cusp. Clinial correlation suggested No [id number] shunt demonstrated by agitated saline injection. Mild mitral and tricuspid regurgitation Mackenzie Forbes (Electronically Signed) Final Date: 26 November 2024 13:28
[2024-11-26 06:38] LABS: Basophils # (Auto) 0.0 Thou/mm3 (0.0-0.2); Basophils % (Auto) 0 % (0-2.5); Eosinophils # (Auto) 0.0 Thou/mm3 (0.0-0.5); Eosinophils % (Auto) 0 % (0-10); Hematocrit 45.1 % (36.0-46.0); Hemoglobin 14.4 g/dL (12.0-16.0); Immature Granulocytes Auto 0.04 Thou/mm3 (0.00-0.00); Lymphocytes # (Auto) 2.3 Thou/mm3 (1.0-4.8); Lymphocytes % (Auto) 21 % (10-50); Mean Corpuscular HGB Conc 31.9 g/dl (31.0-37.0); Mean Corpuscular Hemoglobin 27.3 pg (25.0-35.0); Mean Corpuscular Volume 85 fL (80-100); Monocytes # (Auto) 1.2 Thou/mm3 (0.0-0.8); Monocytes % (Auto) 11 % (0-12); Neutrophils # (Auto) 7.4 Thou/mm3 (1.8-7.7); Neutrophils % (Auto) 67 % (37-80); Nucleated Red Blood Cell # 0.00 Thou/mm3 (0.00-0.00); Nucleated Red Blood Cell % 0 /100 WBC (0); Platelet Count 264 Thou/mm3 (140-440); RDW Standard Deviation 49.2 fL (36.4-46.3); Red Blood Count 5.28 Miln/mm3 (4.00-5.20); White Blood Count 10.9 Thou/mm3 (3.6-11.0)
[2024-11-26 07:07] LABS: Alanine Aminotransferase 13 U/L (10-49); Albumin, Serum 3.8 gm/dL (3.4-4.8); Albumin/Globulin Ratio 1.2 (1.2-2.2); Alkaline Phosphatase 79 U/L (46-116); Anion Gap 10 (7-16); Aspartate Amino Transferase 19 U/L (0-34); BUN/Creatinine Ratio 14 Ratio (12-20); Bilirubin,Total 0.4 mg/dL (0.3-1.2); Blood Urea Nitrogen 7 mg/dL (9-23); Calcium 9.1 mg/dL (8.3-10.6); Calcium (Corrected) 9.3 mg/dL (8.5-10.1); Carbon Dioxide 31.0 mMol/L (20.0-31.0); Chloride 96 mMol/L (98-107); Creatinine (Component) 0.5 mg/dL (0.6-1.3); Estimated Creatinine Clearance 91.0 mL/min (>60); Globulin 3.1 gm/dL (2.3-3.5); Glucose 86 mg/dL (74-106); Magnesium 2.1 mg/dL (1.6-2.6); Osmolality,Calculated 270 (275-295); Phosphorous 2.9 mg/dL (2.4-5.1); Potassium 4.0 mMol/L (3.4-5.1); Sodium 137 mMol/L (136-145); Total Protein 6.9 gm/dL (5.7-8.2); eGFR > 60 See Note
--- NOTE | 2024-11-26 09:00 | ESPR_ITS ---
Documentation for date of: 11/26/24 Subjective Subjective Interval history: Patient is a 74 year old female with a past medical history of hypertension, hyperlipidemia, CAD s/p PCI stents, PAD, Atrial Fibrillation on Eliquis, COPD, Stage III left breast (06/01/2010), Acitve smoker about 59 pack years (since age 15) who presented on 11/22/2024 with chief complain of SOB and right sided lower extremity weakness with aphasia. Patient admitted for acute hypoxic respiratory failure and right lower extremity weakness. 11/25/2024: Patient examined at bedside this evening. Patient denied any pyrexia or acute changes overnight. Patient continues to deny any upper or lower extremity weakness. Per patient, speech pattern returned to baseline-denied dysarthria. Continue Aspirin, Atorvastatin, and Eliquis. 11/26/2024: Patient examined at bedside this morning. Patient denied any new symptoms. Patient would like to increase ambulation and is complainig of lower back pain. Patinet would like to return home. Pending Echo. Exam Vital Signs Temp Pulse Resp BP Pulse Ox O2 Del Method O2 Flow Rate 97.0 F 99 18 109/78 96 Nasal Cannula 3 11/26/24 08:00 11/26/24 09:34 11/26/24 08:00 11/26/24 09:34 11/26/24 08:00 11/26/24 08:00 11/26/24 08:00 Narrative Exam General Appearance: Alert & Oriented X3, well-nourished female who is lying in bed in no acute distress HEENT: Skull symmetrical and atraumatic. Conjunctivae pink and moist. Pupils equal, round, reactive to light and accommodation (PERRL). External ear without lesion or discharge. Straight, nares patient, mucosa pink, no discharge. Cardio: Normal Rate and Rhythm with S1 and S2 heart sounds. No murmurs or extra heart sounds auscultated. No bruits on carotid auscultation. No peripheral edema or cyanosis. Lungs: Symmetric with good expansion. Chest and back non-tender. Breath sounds vesicular without crackles, wheezing or rhonchi Abdomen: Non-tender, Non-distended, Normal Reactive Bowel Sounds Neuro: Yes Alert, Yes cooperative, Yes oriented to person, Yes place, and yes time. Speech clear. CN grossly intact. Upper motor strength 5/5 and Lower motor strength 5/5. Sensation intact. Objective Labs 11/26/24 04:57 11/26/24 04:57 Labs: Laboratory Results - last 24 hr 11/26/24 04:57 WBC 10.9 RBC 5.28 H Hgb 14.4 Hct 45.1 MCV 85 MCH 27.3 MCHC 31.9 RDW Std Deviation 49.2 H Plt Count 264 D Neut % (Auto) 67 Lymph % (Auto) 21 [place] % (Auto) 11 Eos % (Auto) 0 Baso % (Auto) 0 Neut # (Auto) 7.4 Lymph # (Auto) 2.3 [place] # (Auto) 1.2 H Eos # (Auto) 0.0 Baso # (Auto) 0.0 Immature Gran # (Auto) 0.04 H Absolute Nucleated RBC 0.00 Immature Gran % 0 Nucleated RBC % 0 Sodium 137 Potassium 4.0 D Chloride 96 L Carbon Dioxide 31.0 Anion Gap 10 BUN 7 L Creatinine 0.5 L Estim Creat Clear Calc 91.0 eGFR > 60 BUN/Creatinine Ratio 14 Glucose 86 Calculated Osmolality 270 L Calcium 9.1 Corrected Calcium 9.3 Phosphorus 2.9 Magnesium 2.1 Total Bilirubin 0.4 AST 19 ALT 13 Alkaline Phosphatase 79 Total Protein 6.9 Albumin 3.8 Globulin 3.1 Albumin/Globulin Ratio 1.2 Quality Measures Quality Measures none Advance care planning discussed with:: patient Assessment & Plan Assessment Current Active Medications: Generic Name Dose Route Start Last Admin Trade Name Freq PRN Reason Stop Dose Admin Acetaminophen 650 mg 11/22/24 14:14 11/25/24 11:24 Acetaminophen 325 Mg Tablet PO 12/22/24 14:13 650 mg Q6H PRN Administration Pain (1-3) & Fever >100.4 Albuterol/Ipratropium 3 ml 11/22/24 15:00 11/26/24 06:26 Albuterol/Ipratropium (Duoneb) Rt Eladia 3 Ml Nebu INH 12/22/24 14:59 3 ml Q4HRRT AMANDO Administration Albuterol/Ipratropium 3 ml 11/22/24 14:14 Albuterol/Ipratropium (Duoneb) Rt Eladia 3 Ml Nebu INH 12/22/24 14:13 Q2HR PRN SHORTNESS OF BREATH OR WHEEZE Amiodarone HCl 200 mg 11/22/24 14:30 11/26/24 09:34 Amiodarone Hcl 200 Mg Tablet PO 12/22/24 14:29 200 mg QDAY AMANDO Administration Apixaban 5 mg 11/24/24 21:00 11/26/24 09:33 Apixaban 2.5 Mg Tablet PO 12/24/24 20:59 5 mg BID AMANDO Administration Aspirin 81 mg 11/23/24 09:00 11/26/24 09:34 Aspirin Ec 81 Mg Tabec PO 12/23/24 08:59 81 mg QDAY AMANDO Administration Atorvastatin Calcium 40 mg 11/25/24 21:00 11/25/24 20:56 Atorvastatin Calcium 20 Mg Tablet PO 12/25/24 20:59 40 mg HS AMANDO Administration Furosemide 40 mg 11/23/24 09:00 11/25/24 09:50 Furosemide Inj 10 Mg/Ml 4ml Vial IVP 12/23/24 08:59 40 mg QDAY AMANDO Administration Ceftriaxone Sodium/Dextrose 1 gm in 50 mls @ 100 mls/hr 11/23/24 09:00 11/26/24 09:33 Rocephin/D5w 1gm Iv Premix IV 11/30/24 08:59 100 mls/hr QDAY AMANDO Administration Methylprednisolone Sodium Succinate 40 mg 11/22/24 14:30 11/26/24 09:33 Methylprednisolone Sod Succ 40 Mg Vial IVP 11/29/24 14:29 40 mg QDAY AMANDO Administration Nicotine 21 mg 11/24/24 21:00 11/26/24 09:33 Nicotine Patch 21 Mg/24 Hr Patch.Td24 TOP 12/24/24 20:59 21 mg QDAY AMANDO Administration Ondansetron HCl 4 mg 11/22/24 14:14 11/24/24 10:51 Ondansetron Inj 2 Mg/Ml Inj 2 Ml IVP 12/22/24 14:13 4 mg Q6H PRN Administration NAUSEA OR VOMITING Protocol Pantoprazole Sodium 40 mg 11/25/24 09:00 11/26/24 09:34 Pantoprazole 40 Mg Tablet PO 12/25/24 08:59 40 mg QDAY AMANDO Administration Protocol Sennosides 1 tab 11/23/24 09:00 11/26/24 09:34 Senna Tablet PO 12/23/24 08:59 1 tab QDAY AMANDO Administration Protocol Tramadol HCl 50 mg 11/26/24 08:30 08/13/25 09:34 Tramadol Hcl 50 Mg Tablet PO 11/27/24 14:13 50 mg Q8HR PRN Administration PAIN SCALE 4-10(Mod-Sev Plan Patient is a 74 year old female with a past medical history of hypertension, hyperlipidemia, CAD s/p PCI stents, PAD, Atrial Fibrillation on Eliquis, COPD, Stage III left breast (06/01/2010), Acitve smoker about 59 pack years (since age 15) who presented on 11/22/2024 with chief complain of SOB and right sided lower extremity weakness with aphasia. Patient admitte for acute hypoxic respiratory failure and right lower extremity weakness. #Acute Ischemic Stroke, embolic #Emoblic type infarct left temporal lobe, left parietal lobe, left basal ganglia, left occipital lobe, and left front lobe Patient presented with right lower extremtiy weakness of complain of dysarthria that was witness by patient's roommates shorlty after retrieving mail from mailbox. Patient not given TPA given. Given embolic like stroke likely secondary to history of atrial fibrillation. CTA Head/Neck (11/21/2024): NO neck arterial stenosis MRI : Multiple Embolic type acute infarcts US Venous: nonocclusive thrombus in the mid left superficial femoral vein Lipid Panel: (11/23/2024): Triglycerides 68, Cholesterol 145, LDL 86, HDL 45 ASCVD 21.9% risk of cardiovascular event, Moderate to high intensity statin Plan -Pending Echo w/ bubble study -Eliquis 5 mg PO BID, Atorvastatin 80 mg PO HS and Aspirin 81 mg qday. -Head of the bed at 30, aspiration precautions -Replace electrolytes as needed. -PT and speech following #Acute hypoxic Respiratory Failure #COPD exacerbation #CAP #Lukeocytosis #Acute on Chronic CHF #HFpEF 50-55% #Nicotine Depdendent #Active Smoker - The patient's plan was discussed with attending Dr. Michael Lemos MD PGY2 Internal Medicine Attending Provider Attestation/Addendum I personally have seen and examined the patient at the bedside and agree with resident's findings, assessment and plan of care. Impression: acute cardioembolic CVA secondary to atrial fibrillation No focal neurological deficit, speech and language function returned to baseline. Will continue with Eliquis and aspirin with statin. She will continue to use oxygen at night and as needed in the daytime. She is neurologically stable for discharge home and I will see her back in 2 weeks
[2024-11-26] MEDS: cefTRIAXone/D5w 1gm IV premix 1 GM/50 ML BAG IV (09:33)
[2024-11-26] MEDS: APIXABAN 2.5 MG TABLET 5 MG PO ×2 (09:33→20:30)
[2024-11-26] MEDS: NICOTINE PATCH 21 MG/24 HR PATCH.TD24 TOP (09:33)
[2024-11-26] MEDS: AZITHROMYCIN 250 MG TABLET 500 MG PO (09:34)
[2024-11-26] MEDS: PANTOPRAZOLE 40 MG TABLET PO (09:34)
[2024-11-26] MEDS: ASPIRIN EC 81 MG TABEC PO (09:34)
[2024-11-26] MEDS: AMIODARONE HCL 200 MG TABLET PO (09:34)
--- NOTE | 2024-11-26 11:15 | PC.SS ---
Follow up note: ECHO pending. Pt will return home upon d.c.
--- NOTE | 2024-11-26 11:46 | ESDS_ITS ---
<Statement entered by Genesis Helton MD - 12/08/24 07:43> I reviewed above note and agree with findings and plans. I have also personally examined the patient with medicine team and went over assessment and plan with medical team including campus recruiting internship and resident physician. <Statement entered by Jovita Sams MD - 11/26/24 13:53> Patient was seen and examined by me personally. I have reviewed the below documentation by the team resident and agree with its findings. Discharge plan was discussed with the attending, Dr. Samantha Diaz. 74-year-old female with past medical history of hypertension, hyperlipidemia, peripheral arterial disease, coronary artery disease status post stents x2, A- fib on Eliquis, breast cancer who presented to [facility] emergency department with a chief complaint of shortness of breath and right- sided weakness. Patient in ED suspected to have likely acute decompensated heart failure, COPD exacerbation and underlying pneumonia, was started on IV antibiotics, IV steroids, breathing treatments, IV diuretics, for patient's underlying complaint of right-sided weakness teleneurology was consulted rec ommended MRI, MRI showed acute ischemic multifocal left hemispheric CVAs which are likely secondary to patient's atrial fibrillation, neurology was consulted patient started on aspirin daily, atorvastatin daily and was eventually resumed on Eliquis. With the progression of hospital course patient's oxygen requirement declined significantly, symptoms of heart failure and COPD improved, per physical therapy patient has minimal contact assist, echocardiogram obtained showed aortic calcifications with small vegetation like structures 5 mm diameter on noncoronary cusp, patient has blood cultures negative for any growth for 48 hours. Further plan is to discharge patient home, patient to follow-up with cardiology, neurology and primary care physician. Patient to complete antibiotic treatment on cefpodoxime, smoking cessation education provided. Patient is stable for discharge, responded well to hospital treatment. Jovita Sams MD Internal Medicine, PGY-2 Planned Discharge Date 11/26/24 DS: Providers Provider Date of admission: 11/22/24 14:00 Primary care physician: Mich Parry PA-C Admitting Provider: Genesis Helton MD Attending Provider on Admission: Genesis Helton MD Consults: 11/22/24 14:28 Referral Physical Therapy Stat Comment: Physician Instructions: Referral Speech Therapy Stat Comment: 11/22/24 16:00 Consult to Neurology / Tele-Neurology Routine Comment: [facility] Consulting Provider: Benjamin Rodriguez 11/22/24 16:35 Referral Smoking Cessation Counseling Routine Comment: Smoking Cessation Education Needed Attending Provider on DC: Dr. Genesis Helton MD Discharging Provider: Dr. Genesis Helton MD Anticipated date of discharge: 11/26/24 DS: Diagnosis Problem List Completed Was Problem List Reviewed/Reconciled?: Yes Hospital Course Hospital Course Hospital course: Summary Patient is a 74 year old female with a past medical history of hypertension, hyperlipidemia, CAD s/p PCI stents, PAD, Atrial Fibrillation on Eliquis, COPD, Stage III left breast (06/01/2010), Active smoker about 59 pack years (since age 15) who presented to [facility] ED on 11/22/2024 with chief complain of SOB and right sided lower extremity weakness with aphasia. Patient admitted for acute hypoxic respiratory failure and right lower extremity weakness. In the ED due to concern of patient was likely having COPD exacerbation of underlying community-acquired pneumonia, acute decompensated heart failure, patient was started on IV steroids, IV antibiotics, pain teener, IV diuretics and neurology were consulted for possible CVA workup. Head/neck CTA was negative for significant arterial stenosis, no cerebral atherosclerotic occlusion, brain MRI with MRA showed multiple embolic type acute infarcts in the left temporal lobe, left parietal lobe, left basal ganglia, left occipital lobe, left frontal lobe. Per neurology, recommendation patient was started on aspirin, atorvastatin, and resumed home med Eliquis. The patient was released shortness of breath due to COPD exacerbation patient was started on IV steroid, DuoNeb and chest PT. CT chest showed extensive pneumonia for which was managed with IV antibiotics. With progression of hospital stay patient oxygen requirement declined significantly, symptoms of a severe heart failure and COPD improved significantly. Echo was done and showed aortic calcification echocardiogram obtained showed aortic calcifications with small vegetation like structures 5 mm diameter on noncoronary cusp and EF 45-50%. Patient blood cultures and sputum cultures were negative. Throughout the hospital course patient other problems were managed and her condition improved remarkably with progression of hospital course. Patient to follow-up cardiology, neurology, primary care PCP. Patient extensively advised about smoking cessation. Further plan to discharge the patient home with cefpodoxime since she is hemodynamically stable to be discharged home with the following instructions. Discharge recommendation: -Complete antibiotic treatment with Cefpodoxime -Use Breztri inhaler daily, use albuterol as needed -STOP Smoking, use nicotine patches -Continue aspirin and atorvastatin, follow up with neurologist outpatient -Follow up with marine engine driver outpatient -Continue other medications as prescribed -Follow up with PCP in 1-2 weeks -Return to ED if symptoms worsen. Hospital Diagnoses: #Acute ischemic multifocal L hemispheric CVAs likely 2/ #Atrial fibrillation, persistent, rate controlled #CAD s/p drug eluting stent x2 #Nonoccuding DVT in mid L superficial femoral vein # Primary HTN #PAD #Acute hypoxic respiratory failure 2/2 #COPD exacerbation # Community-acquired pneumonia #Acute decompensated heart failure #HFpEF EF 45-50% #Bladder retention # Nicotine Dependence Patient seen and assessed under supervision of attending physician Dr. Helton and discuss with senior resident Dr. Sams PGY-2 Samantha Diaz MD PGY-1, Internal Medicine Time spent discussing smoking cessation with patient: more than 10 minutes Time Spent with Patient Time attestation: Total time spent providing and/or coordinating discharge services: Time spent: Greater than 30 minutes Exam Vital Signs Temp Pulse Resp BP Pulse Ox O2 Del Method O2 Flow Rate 97.0 F 93 20 109/78 99 Nasal Cannula 2 11/26/24 08:00 11/26/24 11:30 11/26/24 11:30 11/26/24 09:34 11/26/24 11:30 11/26/24 08:00 11/26/24 11:30 Narrative Exam General: Awake and in no acute distress. Conversational and non-toxic appearing. HEENT: Normocephalic, atraumatic, mucous membranes moist. Heart: regular, rhytm and regular , normal S1 and S2, no murmurs. Lungs: Bilateral diminished breath sounds most prominent at the bases (improving), plus bilateral inspiratory wheezes (resoved) Abdomen: Soft, nondistended, nontender, positive bowel sounds. ?No guarding or rebound tenderness. Neurologic: Alert and oriented x3, no gross neurological deficit, and patient able to move all 4 extremities. Muscle strength right side UE and LE is 4/5 (improving) Extremities: No edema. BLE tender to palpation most at medial lower leg- resolve Skin: No rash or ecchymoses. Discharge Plan Plan Patient Disposition: HOME (Self Care) Patient condition on transfer: Stable Care Plan Goals: -Complete antibiotic treatment with Cefpodoxime -Use Breztri inhaler daily, use albuterol as needed -STOP Smoking, use nicotine patches -Continue aspirin and atorvastatin, follow up with neurologist outpatient -Follow up with marine engine driver outpatient -Continue other medications as prescribed -Follow up with PCP in 1-2 weeks -Return to ED if symptoms worsen. Prescriptions/Referrals Prescriptions/Med Rec: New albuterol sulfate 90 mcg/actuation HFA aerosol inhaler 1 inh inhalation QID PRN (Reason: shortness of breath or wheezing) Qty: 8.5 0RF aspirin 81 mg Tablet,Delayed Release (Dr/Ec) 81 mg PO QDAY 30 Days Qty: 30 3RF atorvastatin 40 mg tablet 40 mg PO HS 30 Days Qty: 30 3RF cefpodoxime 200 mg tablet 200 mg PO BID 7 Days Qty: 14 0RF Rx Instructions: must administer with a meal/food nicotine 21 mg/24 hr Patch 24 Hour 21 mg top QDAY 15 Days Qty: 15 0RF Breztri Aerosphere 160-9-4.8 mcg/actuation HFA aerosol inhaler 2 inh inhalation BID 30 Days Qty: 10.7 3RF Continued duloxetine [Cymbalta] 30 MG capsule,delayed release(DR/EC) 30 mg PO DAILY Qty: 0 Methadone * 10 MG tablet 5 mg PO Q6HR Qty: 0 esomeprazole magnesium 20 mg capsule,delayed release(DR/EC) 20 mg PO DAILY apixaban 5 mg tablet 5 mg PO BID Qty: 30 0RF amiodarone 200 mg Tablet 200 mg PO BID Qty: 30 0RF Changed furosemide 20 mg tablet 40 mg PO DAILY 30 Days Qty: 60 0RF Discontinued lisinopril 10 MG tablet 10 mg PO QDAY Qty: 0 fluticasone propion-salmeterol 250-50 mcg/dose blister with device 1 inh INHALATION BID Patient Comments: inhale 1 puff by mouth twice a day every morning and every evening APPROXIMATELY 12 HOURS APART Referrals: Benjamin Rodriguez MD [Physician] - Mich Parry PA-C [Primary Care Provider] - Patient/Caregiver Discharge Instructions Discharge Activity: as per physical therapy Education Materials: AFL/Afib, Preventing Pneumonia, Shortness of Breath Coping, Coping with Heart Failure Print Language: Chinese Stand Alone Forms: Liane Award Info., Patient Portal Info Letter Discharge Order Discharge Orders: Discharge (Routine); Ordered 11/26/24 Ordered By: Jovita Sams Quality Discharge Quality Measures VTE prophylaxis
--- NOTE | 2024-11-26 12:26 | PC.SS ---
BID MANAGER informed wedding planner that patient will require oxygen for transport home. BID MANAGER met with patient to confirm if patient had access to portable oxygen. Patient relayed that she does not possess portable oxygen. Patient possesses home concentrator and oxygen tanks are too large for transport. retail planner to follow up with [employer] to initiate request for portable oxygen on behalf of the patient.
--- NOTE | 2024-11-26 12:46 | PC.NURSE ---
Per Dr. Alonzo pt can be discharged after completing bladder training and voiding once. JENNY Bob is working on transportation and portable O2 for discharge.
--- NOTE | 2024-11-26 12:55 | PC.SS ---
SS met with pt who states she utilizes [employer] from home O2 but does not have small O2 tanks. SS spoke to Jesus from [employer] who states pt utilize nocturnal, home O2 at night and does not continuous home O2. Per Jesus, pt will require O2 testing for continuous home O2. SS has informed bedside nurseGeorgia pt is requiring O2 testing.
--- NOTE | 2024-11-26 14:21 | PC.NURSE ---
Pt room air @ rest is 91%. Pt on room air while walking was 87%. After I put O2 2L back on pt at 92%.
--- NOTE | 2024-11-26 14:34 | PC.SS ---
SS has sent DME order for continuos home O2 to [facility] using [employer]. SS spoke to [facility] who is aware pt is ready for d/c today and [facility] has also informed Esther from [facility]. SS has spoken to patient's son, Gurwinder who is aware and will provide transportation home. Bedside nurse, [place] is aware.
--- NOTE | 2024-11-26 15:06 | PC.PT ---
Patient is safe to ambulate to the bathroom with her 3 wheel walker and 1 staff assist. RN made aware.
--- NOTE | 2024-11-26 15:24 | PC.NURSE ---
Pt just voided, pending O2 approval per SSW Karina.
--- NOTE | 2024-11-26 15:31 | PC.SS ---
SS spoke to Esther from [facility] who explained they have contacted patient's son, Gurwinder and they have coordinated to deliver to the address he provided. Bedside nurse, [place] is aware.
--- NOTE | 2024-11-26 16:34 | PC.NURSE ---
Per SSW Karina, waiting for O2 to be delivered to son who will then bring with him to come berry picker patient.
[2024-11-26] MEDS: ATORVASTATIN CALCIUM 20 MG TABLET 40 MG PO (20:20)
--- NOTE | 2024-11-26 20:29 | PC.NURSE ---
notified Dr. Rodriguez of pateint's bp 80/55 and ready to discharge. new order to bolus 500 cc of normal saline and reevaluate.
[2024-11-26] MEDS: SODIUM CHLORIDE 0.9% 500 ML 500 ML 999 ML IV (20:36)
--- NOTE | 2024-11-26 21:20 | PC.NURSE ---
patient's bp after bolus is 90/7 with heartrate 80. Patient is symptomatic and feels dizzy in bed and upon standing assisted with Dr. Rodriguez and nurse. Discharge is held. Family and patient aware.
[2024-11-26] MEDS: SODIUM CHLORIDE 0.9% 500 ML 500 ML 60 ML IV (21:51)
[2024-11-26] MEDS: MIDODRINE 5 MG TABLET 10 MG PO (21:52)
--- NOTE | 2024-11-26 23:26 | PC.NURSE ---
Patient received to room 358 from TELE, to floor via w/c. Assisted in bed and oriented to room, HOB up for comfort with O2 in use at 2L/nc. Pt denies any problem at this time. Call light within easily reached.
[2024-11-27] VITALS (11 sets, daily range): BP systolic 106–131; BP diastolic 72–82; PULSE 78–128; RESP 17–21; TEMP 36–36.6; O2SAT 93–100
[2024-11-27] MEDS: ALBUTEROL/IPRATROPIUM (Duoneb) RT SOL 3 ML NEBU INH ×5 (00:05→14:47)
--- NOTE | 2024-11-27 02:07 | PC.NURSE ---
Pt asleep, no s/s of distress.
[2024-11-27 05:33] LABS: Basophils # (Auto) 0.0 Thou/mm3 (0.0-0.2); Basophils % (Auto) 0 % (0-2.5); Eosinophils # (Auto) 0.1 Thou/mm3 (0.0-0.5); Eosinophils % (Auto) 1 % (0-10); Hematocrit 48.2 % (36.0-46.0); Hemoglobin 15.0 g/dL (12.0-16.0); Immature Granulocytes Auto 0.04 Thou/mm3 (0.00-0.00); Lymphocytes # (Auto) 2.7 Thou/mm3 (1.0-4.8); Lymphocytes % (Auto) 22 % (10-50); Mean Corpuscular HGB Conc 31.1 g/dl (31.0-37.0); Mean Corpuscular Hemoglobin 27.1 pg (25.0-35.0); Mean Corpuscular Volume 87 fL (80-100); Monocytes # (Auto) 1.2 Thou/mm3 (0.0-0.8); Monocytes % (Auto) 10 % (0-12); Neutrophils # (Auto) 8.2 Thou/mm3 (1.8-7.7); Neutrophils % (Auto) 67 % (37-80); Nucleated Red Blood Cell # 0.00 Thou/mm3 (0.00-0.00); Nucleated Red Blood Cell % 0 /100 WBC (0); Platelet Count 281 Thou/mm3 (140-440); RDW Standard Deviation 51.1 fL (36.4-46.3); Red Blood Count 5.53 Miln/mm3 (4.00-5.20); White Blood Count 12.2 Thou/mm3 (3.6-11.0)
[2024-11-27 06:04] LABS: Alanine Aminotransferase 16 U/L (10-49); Albumin, Serum 3.9 gm/dL (3.4-4.8); Albumin/Globulin Ratio 1.2 (1.2-2.2); Alkaline Phosphatase 88 U/L (46-116); Anion Gap 7 (7-16); Aspartate Amino Transferase 19 U/L (0-34); BUN/Creatinine Ratio 12 Ratio (12-20); Bilirubin,Total 0.4 mg/dL (0.3-1.2); Blood Urea Nitrogen 7 mg/dL (9-23); Calcium 9.5 mg/dL (8.3-10.6); Calcium (Corrected) 9.6 mg/dL (8.5-10.1); Carbon Dioxide 33.2 mMol/L (20.0-31.0); Chloride 97 mMol/L (98-107); Creatinine (Component) 0.6 mg/dL (0.6-1.3); Estimated Creatinine Clearance 75.8 mL/min (>60); Globulin 3.3 gm/dL (2.3-3.5); Glucose 86 mg/dL (74-106); Magnesium 2.1 mg/dL (1.6-2.6); Osmolality,Calculated 270 (275-295); Phosphorous 3.2 mg/dL (2.4-5.1); Potassium 4.9 mMol/L (3.4-5.1); Sodium 137 mMol/L (136-145); Total Protein 7.2 gm/dL (5.7-8.2); eGFR > 60 See Note
[2024-11-27] MEDS: NICOTINE PATCH 21 MG/24 HR PATCH.TD24 TOP (09:31)
[2024-11-27] MEDS: AMIODARONE HCL 200 MG TABLET PO (09:32)
[2024-11-27] MEDS: PANTOPRAZOLE 40 MG TABLET PO (09:33)
[2024-11-27] MEDS: ASPIRIN EC 81 MG TABEC PO (09:33)
[2024-11-27] MEDS: cefTRIAXone/D5w 1gm IV premix 1 GM/50 ML BAG IV (09:33)
[2024-11-27] MEDS: APIXABAN 2.5 MG TABLET 5 MG PO (09:33)
--- NOTE | 2024-11-27 12:00 | ESPR_ITS ---
Documentation for date of: 11/27/24 Subjective Subjective Interval history: Patient is a 74 year old female with a past medical history of hypertension, hyperlipidemia, CAD s/p PCI stents, PAD, CHF HFpEF 45-50% (11/2024), Atrial Fibrillation on Eliquis, COPD, Stage III left breast (06/01/2010), Acitve smoker about 59 pack years (since age 15) who presented on 11/22/2024 with chief complain of SOB and right sided lower extremity weakness with aphasia. Patient admitted for acute hypoxic respiratory failure and right lower extremity weakness. 11/25/2024: Patient examined at bedside this evening. Patient denied any pyrexia or acute changes overnight. Patient continues to deny any upper or lower extremity weakness. Per patient, speech pattern returned to baseline-denied dysarthria. Continue Aspirin, Atorvastatin, and Eliquis. 11/26/2024: Patient examined at bedside this morning. Patient denied any new symptoms. Patient would like to increase ambulation and is complainig of lower back pain. Patinet would like to return home. 11/27/2024: No overnight events. Patient's son recieved oxygen at patient's home continue home oxygen as needed. Patient denied any chief complains. is ready to be discharged. Exam Vital Signs Temp Pulse Resp BP Pulse Ox O2 Del Method O2 Flow Rate 97.3 F 115 H 18 129/80 94 L Room Air 1 11/27/24 12:00 11/27/24 12:00 11/27/24 12:00 11/27/24 12:00 11/27/24 12:00 11/27/24 08:11/27/24 10:38 Narrative Exam General Appearance: Alert & Oriented X3, well-nourished female who is lying in bed in no acute distress HEENT: Skull symmetrical and atraumatic. Conjunctivae pink and moist. Pupils equal, round, reactive to light and accommodation (PERRL). External ear without lesion or discharge. Straight, nares patient, mucosa pink, no discharge. Cardio: Normal Rate and Rhythm with S1 and S2 heart sounds. No murmurs or extra heart sounds auscultated. No bruits on carotid auscultation. No peripheral edema or cyanosis. Lungs: Symmetric with good expansion. Chest and back non-tender. Breath sounds vesicular without crackles, wheezing or rhonchi Abdomen: Non-tender, Non-distended, Normal Reactive Bowel Sounds Neuro: Yes Alert, Yes cooperative, Yes oriented to person, Yes place, and yes time. Speech clear. CN grossly intact. Upper motor strength 5/5 and Lower motor strength 5/5. Sensation intact. Objective Labs 11/27/24 04:32 11/27/24 04:32 Labs: Laboratory Results - last 24 hr 11/27/24 04:32 WBC 12.2 H RBC 5.53 H Hgb 15.0 Hct 48.2 H MCV 87 MCH 27.1 MCHC 31.1 RDW Std Deviation 51.1 H Plt Count 281 Neut % (Auto) 67 Lymph % (Auto) 22 [place] % (Auto) 10 Eos % (Auto) 1 Baso % (Auto) 0 Neut # (Auto) 8.2 H Lymph # (Auto) 2.7 [place] # (Auto) 1.2 H Eos # (Auto) 0.1 Baso # (Auto) 0.0 Immature Gran # (Auto) 0.04 H Absolute Nucleated RBC 0.00 Immature Gran % 0 Nucleated RBC % 0 Sodium 137 Potassium 4.9 D Chloride 97 L Carbon Dioxide 33.2 H Anion Gap 7 BUN 7 L Creatinine 0.6 Estim Creat Clear Calc 75.8 eGFR > 60 BUN/Creatinine Ratio 12 Glucose 86 Calculated Osmolality 270 L Calcium 9.5 Corrected Calcium 9.6 Phosphorus 3.2 Magnesium 2.1 Total Bilirubin 0.4 AST 19 ALT 16 Alkaline Phosphatase 88 Total Protein 7.2 Albumin 3.9 Globulin 3.3 Albumin/Globulin Ratio 1.2 Quality Measures Quality Measures VTE prophylaxis Advance care planning discussed with:: patient Assessment & Plan Assessment Current Active Medications: Generic Name Dose Route Start Last Admin Trade Name Freq PRN Reason Stop Dose Admin Acetaminophen 650 mg 11/22/24 14:14 11/25/24 11:24 Acetaminophen 325 Mg Tablet PO 12/22/24 14:13 650 mg Q6H PRN Administration Pain (1-3) & Fever >100.4 Albuterol/Ipratropium 3 ml 11/22/24 15:00 11/27/24 10:38 Albuterol/Ipratropium (Duoneb) Rt Eladia 3 Ml Nebu INH 12/22/24 14:59 3 ml Q4HRRT AMANDO Administration Albuterol/Ipratropium 3 ml 11/22/24 14:14 Albuterol/Ipratropium (Duoneb) Rt Eladia 3 Ml Nebu INH 12/22/24 14:13 Q2HR PRN SHORTNESS OF BREATH OR WHEEZE Amiodarone HCl 200 mg 11/22/24 14:30 11/27/24 09:32 Amiodarone Hcl 200 Mg Tablet PO 12/22/24 14:29 200 mg QDAY AMANDO Administration Apixaban 5 mg 11/24/24 21:00 11/27/24 09:33 Apixaban 2.5 Mg Tablet PO 12/24/24 20:59 5 mg BID AMANDO Administration Aspirin 81 mg 11/23/24 09:00 11/27/24 09:33 Aspirin Ec 81 Mg Tabec PO 12/23/24 08:59 81 mg QDAY AMANDO Administration Atorvastatin Calcium 40 mg 11/25/24 21:00 11/26/24 20:20 Atorvastatin Calcium 20 Mg Tablet PO 12/25/24 20:59 40 mg HS AMANDO Administration Furosemide 40 mg 11/23/24 09:00 11/25/24 09:50 Furosemide Inj 10 Mg/Ml 4ml Vial IVP 12/23/24 08:59 40 mg QDAY AMANDO Administration Ceftriaxone Sodium/Dextrose 1 gm in 50 mls @ 100 mls/hr 11/23/24 09:00 11/27/24 09:33 Rocephin/D5w 1gm Iv Premix IV 11/30/24 08:59 100 mls/hr QDAY AMANDO Administration Methylprednisolone Sodium Succinate 40 mg 11/22/24 14:30 11/27/24 09:31 Methylprednisolone Sod Succ 40 Mg Vial IVP 11/29/24 14:29 40 mg QDAY AMANDO Administration Nicotine 21 mg 11/24/24 21:00 11/27/24 09:31 Nicotine Patch 21 Mg/24 Hr Patch.Td24 TOP 12/24/24 20:59 21 mg QDAY AMANDO Administration Ondansetron HCl 4 mg 11/22/24 14:14 11/24/24 10:51 Ondansetron Inj 2 Mg/Ml Inj 2 Ml IVP 12/22/24 14:13 4 mg Q6H PRN Administration NAUSEA OR VOMITING Protocol Pantoprazole Sodium 40 mg 11/25/24 09:00 11/27/24 09:33 Pantoprazole 40 Mg Tablet PO 12/25/24 08:59 40 mg QDAY AMANDO Administration Protocol Sennosides 1 tab 11/23/24 09:00 11/27/24 09:33 Senna Tablet PO 12/23/24 08:59 1 tab QDAY [facility] Administration Protocol Plan Patient is a 74 year old female with a past medical history of hypertension, hyperlipidemia, CAD s/p PCI stents, PAD, Atrial Fibrillation on Eliquis, COPD, Stage III left breast (06/01/2010), Acitve smoker about 59 pack years (since age 15) who presented on 11/22/2024 with chief complain of SOB and right sided lower extremity weakness with aphasia. Patient admitte for acute hypoxic respiratory failure and right lower extremity weakness. #Acute Ischemic Stroke, embolic #Emoblic type infarct left temporal lobe, left parietal lobe, left basal ganglia, left occipital lobe, and left front lobe Patient presented with right lower extremtiy weakness of complain of dysarthria that was witness by patient's roommates shorlty after retrieving mail from mailbox. Patient not given TPA given. Given embolic like stroke likely secondary to history of atrial fibrillation. CTA Head/Neck (11/21/2024): NO neck arterial stenosis MRI : Multiple Embolic type acute infarcts Echo (11/26/2024): Normal LV size with mild global hypokinesis Estimated EF 45- 50%. Aortic Calcification with small vegetation like structure 5mm diameter on non coronary cusp. No [id number] shunt demonstrated by agitated saline injection. Mild mitral and tricuspid regurgitation US Venous: nonocclusive thrombus in the mid left superficial femoral vein Lipid Panel: (11/23/2024): Triglycerides 68, Cholesterol 145, LDL 86, HDL 45 ASCVD 21.9% risk of cardiovascular event, Moderate to high intensity statin Plan -Consider RICO as outpatient to confirm vegetation like structure -Eliquis 5 mg PO BID, Atorvastatin 80 mg PO HS and Aspirin 81 mg qday. -Head of the bed at 30, aspiration precautions -Replace electrolytes as needed. -PT and speech following #Acute hypoxic Respiratory Failure #COPD exacerbation #CAP #Lukeocytosis #Acute on Chronic CHF #HFpEF 45-50% (11/26/2024) #Aortic Calcification w/ small vegatation like structure #Nicotine Depdendent #Active Smoker The patient's plan was discussed with attending Dr. Michael Lemos, MD PGY2 Internal Medicine Attending Provider Attestation/Addendum I independently reviewed the patient's chart and I agreed with the resident's findings, assessment and plan of care. Impression: Acute cardioembolic CVA secondary to atrial fibrillation. Stable for discharge home on Eliquis aspirin and statin with home oxygen. Advised her about the importance of smoking cessation. Follow-up in my office in 2 weeks
--- NOTE | 2024-11-27 14:26 | PC.SS ---
SS met with pt who confirmed son has received small O2 tank for transportation.
--- NOTE | 2024-11-27 14:39 | ESDS_ITS ---
<Statement entered by Genesis Helton MD - 12/12/24 15:04> I reviewed above note and agree with findings and plans. I have also personally examined the patient with medicine team and went over assessment and plan with medical team including customer experience intern and resident physician. <Statement entered by Jovita Sams MD - 11/28/24 05:44> Patient was seen and examined by me personally. I have reviewed the below documentation by the team resident and agree with its findings. Discharge plan was discussed with the attending, Dr. Helton 74-year-old female with past medical history as below, admitted for CVA, COPD exacerbation, community-acquired pneumonia, acute decompensated heart failure, was stable for discharge yesterday however in the evening patient had complained of dizziness with ambulation, was given IV fluid and started on maintenance fluid by night team. Volume status assessed this morning patient seems euvolemic, no shortness of breath. Will discharge patient today, will hold Lasix patient to follow-up outpatient with pin drafter operator/PCP to resume Lasix as needed. Patient is stable for discharge. Jovita Sams MD Internal Medicine, PGY-2 Planned Discharge Date 11/27/24 DS: Providers Provider Date of admission: 11/22/24 14:00 Primary care physician: Mich Parry PA-C Admitting Provider: Genesis Helton MD Attending Provider on Admission: Genesis Helton MD Consults: 11/22/24 14:28 Referral Physical Therapy Stat Comment: Physician Instructions: Referral Speech Therapy Stat Comment: 11/22/24 16:00 Consult to Neurology / Tele-Neurology Routine Comment: [facility] Consulting Provider: Benjamin Rodriguez 11/22/24 16:35 Referral Smoking Cessation Counseling Routine Comment: Smoking Cessation Education Needed Attending Provider on DC: Dr. Genesis Helton MD Discharging Provider: Dr. Genesis Helton MD Anticipated date of discharge: 11/27/24 DS: Diagnosis Problem List Completed Was Problem List Reviewed/Reconciled?: Yes Hospital Course Hospital Course Hospital course: Summary Patient is a 74 year old female with a past medical history of hypertension, hyperlipidemia, CAD s/p PCI stents, PAD, Atrial Fibrillation on Eliquis, COPD, Stage III left breast (06/01/2010), Active smoker about 59 pack years (since age 15) who presented to [facility] ED on 11/22/2024 with chief complain of SOB and right sided lower extremity weakness with aphasia. Patient admitted for acute hypoxic respiratory failure and right lower extremity weakness. In the ED due to concern of patient was likely having COPD exacerbation of underlying community-acquired pneumonia, acute decompensated heart failure, patient was started on IV steroids, IV antibiotics, pain teener, IV diuretics and neurology were consulted for possible CVA workup. Head/neck CTA was negative for significant arterial stenosis, no cerebral atherosclerotic occlusion, brain MRI with MRA showed multiple embolic type acute infarcts in the left temporal lobe, left parietal lobe, left basal ganglia, left occipital lobe, left frontal lobe. Per neurology, recommendation patient was started on aspirin, atorvastatin, and resumed home med Eliquis. The patient was released shortness of breath due to COPD exacerbation patient was started on IV steroid, DuoNeb and chest PT. CT chest showed extensive pneumonia for which was managed with IV antibiotics. With progression of hospital stay patient oxygen requirement declined significantly, symptoms of a severe heart failure and COPD improved significantly. Echo was done and showed aortic calcification echocardiogram obtained showed aortic calcifications with small vegetation like structures 5 mm diameter on noncoronary cusp and EF 45-50%. Patient blood cultures and sputum cultures were negative. Throughout the hospital course patient other problems were managed and her condition improved remarkably with progression of hospital course. Patient to follow-up cardiology, neurology, primary care PCP. Patient extensively advised about smoking cessation. Further plan to discharge the patient home with cefpodoxime since she is hemodynamically stable to be discharged home with the following instructions. Although patient was discharge on 11/27/2023 she did not leave because she presented with dizziness with ambulation. Therefore with the patient's stay overnight, for further monitoring. But this morning when patient was seen and examined she was able to ambulate without dizziness, weakness, shortness of breath, saturating well on 1-2 L nasal cannula. Patient can be safely discharged home on oxygen. Discharge recommendation: -Complete antibiotic treatment with Cefpodoxime -Use Breztri inhaler daily, use albuterol as needed -STOP Smoking, use nicotine patches -Continue aspirin and atorvastatin, follow up with neurologist outpatient -Follow up with pin drafter operator outpatient -Continue other medications as prescribed -Follow up with PCP in 1-2 weeks -Return to ED if symptoms worsen. Hospital Diagnoses: #Acute ischemic multifocal L hemispheric CVAs likely 2/2 #Atrial fibrillation, persistent, rate controlled #CAD s/p drug eluting stent x2 #Nonoccuding DVT in mid L superficial femoral vein # Primary HTN #PAD #Acute hypoxic respiratory failure 2/2 #COPD exacerbation # Community-acquired pneumonia #Acute decompensated heart failure #HFpEF EF 45-50% #Bladder retention # Nicotine Dependence Patient seen and assessed under supervision of attending physician Dr. Helton and discuss with senior resident Dr. Sams PGY-2 Samantha Diaz MD PGY-1, Internal Medicine Time spent discussing smoking cessation with patient: more than 10 minutes Time Spent with Patient Time attestation: Total time spent providing and/or coordinating discharge services: Time spent: Greater than 30 minutes Exam Vital Signs Temp Pulse Resp BP Pulse Ox O2 Del Method O2 Flow Rate 97.3 F 115 H 18 129/80 94 L Room Air 1 11/27/24 12:00 11/27/24 12:11/27/24 12:11/27/24 12:11/27/24 12:11/27/24 08:11/27/24 10:38 Narrative Exam General: Awake and in no acute distress. Conversational and non-toxic appearing. HEENT: Normocephalic, atraumatic, mucous membranes moist. Heart: regular, rhytm and regular , normal S1 and S2, no murmurs. Lungs: Bilateral diminished breath sounds most prominent at the bases (improving), plus bilateral inspiratory wheezes (resoved) Abdomen: Soft, nondistended, nontender, positive bowel sounds. ?No guarding or rebound tenderness. Neurologic: Alert and oriented x3, no gross neurological deficit, and patient able to move all 4 extremities. Muscle strength right side UE and LE is 5/5 (improved) Extremities: No edema. BLE tender to palpation most at medial lower leg (resolve) Skin: No rash or ecchymoses. Discharge Plan Plan Patient Disposition: HOME (Self Care) Patient condition on transfer: Stable Care Plan Goals: -Complete antibiotic treatment with Cefpodoxime -Use Breztri inhaler daily, use albuterol as needed -Hold Lasix follow up with PCP before resuming. -STOP Smoking, use nicotine patches -Continue aspirin and atorvastatin, follow up with neurologist outpatient -Follow up with pin drafter operator outpatient -Continue other medications as prescribed -Follow up with PCP in 1-2 weeks -Return to ED if symptoms worsen. Prescriptions/Referrals Prescriptions/Med Rec: New albuterol sulfate 90 mcg/actuation HFA aerosol inhaler 1 inh inhalation QID PRN (Reason: shortness of breath or wheezing) Qty: 8.5 0RF aspirin 81 mg Tablet,Delayed Release (Dr/Ec) 81 mg PO QDAY 30 Days Qty: 30 3RF atorvastatin 40 mg tablet 40 mg PO HS 30 Days Qty: 30 3RF cefpodoxime 200 mg tablet 200 mg PO BID 7 Days Qty: 14 0RF Rx Instructions: must administer with a meal/food nicotine 21 mg/24 hr Patch 24 Hour 21 mg top QDAY 15 Days Qty: 15 0RF Breztri Aerosphere 160-9-4.8 mcg/actuation HFA aerosol inhaler 2 inh inhalation BID 30 Days Qty: 10.7 3RF Continued duloxetine [Cymbalta] 30 MG capsule,delayed release(DR/EC) 30 mg PO DAILY Qty: 0 Methadone * 10 MG tablet 5 mg PO Q6HR Qty: 0 esomeprazole magnesium 20 mg capsule,delayed release(DR/EC) 20 mg PO DAILY apixaban 5 mg tablet 5 mg PO BID Qty: 30 0RF amiodarone 200 mg Tablet 200 mg PO BID Qty: 30 0RF Discontinued lisinopril 10 MG tablet 10 mg PO QDAY Qty: 0 fluticasone propion-salmeterol 250-50 mcg/dose blister with device 1 inh INHALATION BID Patient Comments: inhale 1 puff by mouth twice a day every morning and every evening APPROXIMATELY 12 HOURS APART furosemide 20 mg tablet 20 mg PO DAILY Referrals: Benjamin Rodriguez MD [Physician] - Mich Parry PA-C [Primary Care Provider] - Patient/Caregiver Discharge Instructions Discharge Activity: as per physical therapy Education Materials: AFL/Afib, Preventing Pneumonia, Shortness of Breath Coping, Coping with Heart Failure Print Language: Turkmen Stand Alone Forms: Liane Award Info., Patient Portal Info Letter Discharge Order Discharge Orders: Discharge (Routine); Ordered 11/26/24 Ordered By: Jovita Sams Quality Discharge Quality Measures VTE prophylaxis
== END 2024-11-27 16:50 | disposition home or self-care (01) | DRG 64 ==
LOC: SERX 11-22 06:58 → SERHOLD 11-22 14:56 → S2NX 11-22 16:38 → S3NX 11-26 23:17
PROVIDERS: Nurse Practitioner Family; Admitting Provider Internal Medicine; Emergency Provider Emergency Medicine; PCP Physician Assistant; Visit Provider Internal Medicine
DX: I63.49 Cerebral infarction due to embolism of other cerebral artery (principal); I50.33 Acute on chronic diastolic (congestive) heart failure; J96.01 Acute respiratory failure with hypoxia; J18.9 Pneumonia, unspecified organism; I48.19 Other persistent atrial fibrillation; J44.1 Chronic obstructive pulmonary disease with (acute) exacerbation; J44.0 Chronic obstructive pulmonary disease with (acute) lower respiratory infection; G81.91 Hemiplegia, unspecified affecting right dominant side; I11.0 Hypertensive heart disease with heart failure; R47.01 Aphasia; I25.10 Atherosclerotic heart disease of native coronary artery without angina pectoris; R91.1 Solitary pulmonary nodule; R33.9 Retention of urine, unspecified; F17.200 Nicotine dependence, unspecified, uncomplicated; R06.03 Acute respiratory distress; Z79.01 Long term (current) use of anticoagulants; E78.5 Hyperlipidemia, unspecified; Z85.3 Personal history of malignant neoplasm of breast; Z79.82 Long term (current) use of aspirin; Z91.199 Patient's noncompliance with other medical treatment and regimen due to unspecified reason; Z79.899 Other long term (current) drug therapy; Z95.5 Presence of coronary angioplasty implant and graft; I73.9 Peripheral vascular disease, unspecified; R29.702 NIHSS score 2; I70.0 Atherosclerosis of aorta; K82.8 Other specified diseases of gallbladder; R47.1 Dysarthria and anarthria; Z88.0 Allergy status to penicillin
CPT/HCPCS: 36415; 70450; 70496; 70498; 70544; 71046; 71260; 74181; 80053; 80061; 81001; 83036; 83540; 83550; 83605; 83735; 83880; 84100; 84145; 84439; 84443; 84484; 85025; 85610; 85730; 87040; 87077; 87081; 87186; 87205; 87400; 87502; 87811; 92526; 92610; 93005; 93225; 93306; 93970; 94640; 96365; 96366; 96375; 96376; 97162; 99285; A4649; A9270; J0131; J0456; J0696; J1200; J1938; J2270; J2405; J2470; J2919; J3010; J3360; J3475; J3490; J7050; J7999; Q9967

== ENCOUNTER → 2025-01-21 | Outpatient (CLI) | payer OTHER, MEDICAID, SELFPAY ==
--- NOTE | 2025-01-21 13:15 | XR_ITS ---
Examination: Screening digital mammography, bilateral Computer aided detection 3-D breast Tomosynthesis, bilateral Date and time of exam: January 21, 2025, 1321 hours, compared to mammograms dating to October 07, 2018 Indication: Screening Technique: Nonmagnified MLO, CC views of the breasts to been obtained, reconstructed from 3-D Tomosynthesis images. R2 computer aided detection program utilized for evaluation of suspicious masses and/or abnormal calcifications. 3-D Tomosynthesis images obtained. Findings: Scattered areas of fibroglandular density. Breast biopsy marker and nodule in the right breast again noted Decreased volume left breast and scarring stable, consistent with patient's history of treated left breast cancer Image quality right breast is diminished secondary to the Port-A-Cath reservoir Impression: BI-RADS category II: Benign Findings. Recommend 1 year follow-up mammogram. Limited study as above, recommend baseline bilateral breast sonography follow-up
--- NOTE | 2025-01-21 13:23 | XR_ITS ---
EXAMINATION: PA lateral chest 2 views TECHNIQUE: Upright PA lateral chest 2 views Date and time: January 21, 2025, 1437 hours, comparison November 21, 2024 INDICATIONS: Difficulty breathing beginning February 2024. FINDINGS: Worsening opacity in the left hemithorax consistent with volume loss, including elevation left hemidiaphragm and shift of the trachea to the left Right Port-A-Cath tip currently projects in satisfactory position Vascular congestion in the aerated right lung IMPRESSION: Worsening atelectasis left lung, recommend repeat CT chest with contrast to exclude underlying pulmonary neoplasm obstructing the left bronchial airway
--- NOTE | 2025-01-21 13:40 | XR_ITS ---
Examination: Bone densitometry Date and time of exam: January 31, 2025, 1343 hours INDICATIONS: Hysterectomy age 49, postmenopausal fractures L4, L5, smoking history 50 years Technique: Lumbar spine and hip total bone mineralization values of an calculated. Peak reference and age match control results have been displayed. Findings: Lumbar spine total bone mineralization is 1.263 gm/cm2. This is 2.0 standard deviations above peak reference. This is 4.4 standard deviations above age-matched controls. Hip total bone mineralization is 0.873 gm/cm2 This is 0.6 standard deviations below peak reference. This is 1.2 standard deviations above age-matched controls Impression: There is normal mineralization based on lumbar spine measurements. There is normal mineralization based on hip measurements Lumbar mineralization is decreased 5.3% compared with July 04, 2022 Hip mineralization is decreased 10.8% compared with July 04, 2022
== END | disposition home or self-care (01) ==
PROVIDERS: Referring Provider Physician Assistant; Visit Provider Nurse Practitioner Family
DX: Z12.31 Encounter for screening mammogram for malignant neoplasm of breast (principal); R92.323 Mammographic fibroglandular density, bilateral breasts; J98.11 Atelectasis; M89.8X0 Other specified disorders of bone, multiple sites
CPT/HCPCS: 71046; 77063; 77067; 77080

== ENCOUNTER 2025-02-04 10:36 | Outpatient (RCR) | payer OTHER, MEDICAID, SELFPAY | END 2025-02-13 23:59 | disposition home or self-care (01) | LOC: SCTC 10:36 | PROVIDERS: PCP Physician Assistant; Referring Provider Physician Assistant; Visit Provider Nurse Practitioner Family | DX: N60.91 Unspecified benign mammary dysplasia of right breast (principal); Z85.3 Personal history of malignant neoplasm of breast; R91.8 Other nonspecific abnormal finding of lung field; R63.4 Abnormal weight loss; Z68.23 Body mass index [BMI] 23.0-23.9, adult; Z79.810 Long term (current) use of selective estrogen receptor modulators (SERMs) | CPT/HCPCS: 99212; G0463 ==

== ENCOUNTER → 2025-03-23 | Outpatient (CLI) | payer MEDICARE, MEDICAID, SELFPAY ==
--- NOTE | 2025-03-23 15:50 | XR_ITS ---
Examination: Shoulder, right, 3 views Technique: Shoulder AP internal rotation, AP external rotation, Y view shoulder, 3 views Exam date and time : March, 1555 hours INDICATIONS: Injury to the right shoulder 2 months ago with shoulder pain. FINDINGS: Prominent osteopenia Moderate narrowing glenohumeral joint No shoulder fracture or dislocation IMPRESSION: No shoulder fracture or dislocation Incidental note extensive opacity left lung, please see the chest x-ray report January 21, 2025, consider repeat PA lateral chest x-ray
== END | disposition home or self-care (01) ==
LOC: CDIM 15:40
PROVIDERS: PCP Physician Assistant; Referring Provider Physical Medicine & Rehabilitation Pain Medicine; Visit Provider Physical Medicine & Rehabilitation Pain Medicine
DX: S49.91XA Unspecified injury of right shoulder and upper arm, initial encounter (principal); X58.XXXA Exposure to other specified factors, initial encounter; R91.8 Other nonspecific abnormal finding of lung field
CPT/HCPCS: 73030

== ENCOUNTER → 2025-03-24 | Outpatient (CLI) | payer MEDICARE, MEDICAID, SELFPAY ==
--- NOTE | 2025-03-24 11:15 | XR_ITS ---
Examination: Breast ultrasound complete, bilateral Date and time of exam: March 24, 2025, 1131 hours INDICATIONS: Left breast cancer diagnosis 2007 Technique: Real-time grayscale ultrasonographic imaging bilateral breasts, including all 4 quadrants as well as nipple retroareolar and axillary regions. Findings: Sonographic images right breast 12:00 nodule 7 x 5 mm circumscribed 10:00 nodule lobular margins 5 x 5 mm 11:00 nodule circumscribed 4 x 3 mm Retroareolar nodule which shadowing 2 x 3 mm Sonographic images left breast 2:00 nodule lobular margins 4 x 3 mm Retroareolar calcification 1 x 1 mm IMPRESSION: BI-RADS Category 3: Probably benign findings Recommend 1 additional 6-month bilateral breast sonography follow-up to document stability of solid nodules described above
== END | disposition home or self-care (01) ==
PROVIDERS: PCP Physician Assistant; Referring Provider Nurse Practitioner Family; Visit Provider Nurse Practitioner Family
DX: R92.333 Mammographic heterogeneous density, bilateral breasts (principal); N63.15 Unspecified lump in the right breast, overlapping quadrants; N63.42 Unspecified lump in left breast, subareolar; N63.21 Unspecified lump in the left breast, upper outer quadrant; N63.11 Unspecified lump in the right breast, upper outer quadrant
CPT/HCPCS: 76641

== ENCOUNTER → 2025-03-25 | Outpatient (CLI) | payer MEDICARE, MEDICAID, SELFPAY ==
--- NOTE | 2025-03-25 16:00 | XR_ITS ---
Examination: CT chest, without intravenous contrast. Sagittal and coronal 2-D reconstructions. Exam date and time: 03/25/2025 at 4:55 p.m. CTDI:vol (mGy) 8.03 DLP: (mGycm) 320 CLINICAL INDICATION: Malignant neoplasm of left breast, shortness of breath, Comparison study 11/21/2024 Technique: Multiple 3.0 mm axial sections of the chest to been obtained. Bone and lung density settings are obtained. Sagittal and coronal 2-D reconstructions have been obtained. Low dose protocols were performed. One or more of the following dose reduction techniques were used; automated exposure control, adjustment of the mA and/or KV according to patient size, use of iterative reconstruction technique. Findings: On axial image 171 there are 3 extremely tiny 3 mm diameter ill-defined nodular densities seen in the lateral segment right upper lobe. None of these were present on the previous CT. There are some additional minimal patchy densities adjacent to the lateral pleura in this area. Overall the appearance here is most consistent with minimal localized pneumonitis, however I could not be entirely certain about this in view of the patient's known malignancy. There is extremely extensive bleb formation noted throughout the entire upper half of the right lung, and there our extensive blebs noted along the posterior margin of the right lower lobe with evidence of subpleural pulmonary fibrosis at the right lung base. On the previous CT there was an abrupt termination of the left mainstem bronchus with a possible endobronchial nodule. There was extensive atelectasis with only minimal aeration noted throughout the remaining lung, and the remaining largely collapsed left lung was filled with interstitial fibrosis and bleb formation. There is also major pleural effusion surrounding the markedly atelectatic left lung. On today's CT there is complete atelectasis of the left lung, and again noted is the marked shift of the midline structures towards the left. Significant cardiomegaly is again noted unchanged. There is moderate coronary artery calcification again noted is the very abrupt cut off in termination of the left mainstem bronchus. There appears to be decreased density within the thoracic aorta suggesting significant anemia. I do not see any evidence of metastatic disease in the liver, however today's study was performed without intravenous contrast media based on the patient's history of contrast media reactions in the past. The pancreas and both kidneys and the spleen appear normal. There is extremely advanced and severe multilevel degenerative disc disease throughout the entire cervical dorsal and lumbosacral spine, this is particularly severe in the lumbar region, with several areas of anterior wedge compression fractures. All of these are stable and unchanged when compared with the previous CT on 11/21/2024. IMPRESSION: 1. On the previous CT the patient's left lung was 90% collapsed with minimal areas of aeration still seen. On today's study the left lung is completely atelectatic with no remaining aeration, anywhere. 2. Lung shows compensatory hyperexpansion, with major very extensive emphysematous bleb formation noted throughout the right lung. There are areas of peripheral interstitial fibrosis involving the subpleural portions of the right upper lobe laterally and at the base of the right lower lobe. 3. There is a small 8.8 mm diameter pleural-based nodule seen laterally in the right upper lobe on image 76, this was present on the previous CT, it is about 2 mm larger in diameter. Whether or not this cystic significant pulmonary nodule in this patient with previous breast cancer, is uncertain. A follow-up CT in 6 months be considered. 4. Extensive and major degenerative disc disease and degenerative joint disease is seen throughout the entire spine, worst in the lumbar region 5. There is a large pleural effusion surrounding the completely collapsed left lung, most prominent overlying the upper lobe. This pleural effusion is chronic, and was present on the previous CT study. 6. There is a 1 cm diameter cyst in the lower pole of the left lobe of the thyroid gland. It is unchanged.
== END | disposition home or self-care (01) ==
LOC: SCAT 16:17
PROVIDERS: PCP Physician Assistant; Referring Provider Nurse Practitioner Family; Visit Provider Nurse Practitioner Family
DX: C50.412 Malignant neoplasm of upper-outer quadrant of left female breast (principal); J43.9 Emphysema, unspecified; R91.1 Solitary pulmonary nodule; J84.10 Pulmonary fibrosis, unspecified; M51.360 Other intervertebral disc degeneration, lumbar region with discogenic back pain only; M50.30 Other cervical disc degeneration, unspecified cervical region; M51.34 Other intervertebral disc degeneration, thoracic region; M51.35 Other intervertebral disc degeneration, thoracolumbar region; M50.33 Other cervical disc degeneration, cervicothoracic region; M51.370 Other intervertebral disc degeneration, lumbosacral region with discogenic back pain only; J90 Pleural effusion, not elsewhere classified; E04.1 Nontoxic single thyroid nodule
CPT/HCPCS: 71250